=== PATIENT | male | born 1970 | race Caucasian/White ===

== ENCOUNTER 2017-10-27 06:00 | Day surgery (SDC) | payer OTHER ==
--- NOTE | 2017-10-21 13:58 | HP ---
AMENDED REPORT NOW INCLUDES COSIGNER DESIGNATION - ESIGNED BEFORE ADJUSTMENT HISTORY AND PHYSICAL: DATE OF ADMISSION/SURGERY: 10/27/17 DATE OF OFFICE VISIT: 10/21/17 SURGEON: Veronique Villasenor MD * (DICTATED BY VANGIE ALLEN) PROCEDURE: Right knee arthroscopy with partial meniscectomy, possible chondroplasty, possible synovectomy. CHIEF COMPLAINT: Right knee pain. HISTORY OF PRESENT ILLNESS: Mr. Puentes is a 46-year-old gentleman, who complains of right knee pain. He has failed conservative treatment and elected to proceed with a right knee arthroscopy with partial meniscectomy, possible chondroplasty, possible synovectomy. PAST MEDICAL HISTORY: Hypertension, diabetes, high cholesterol, GERD, and history of SVT. PAST SURGICAL HISTORY: Gastric bypass, oral surgery, and heart ablation. CURRENT MEDICATIONS: 1. Celexa 20 mg daily. 2. Multivitamin. 3. Vitamin D. 4. B complex. 5. Iron. ALLERGIES: No known drug allergies. Latex sensitivity. FAMILY HISTORY: DVT, PE, coronary artery disease, and stroke. SOCIAL HISTORY: He is a 46-year-old gentleman. He denies use of tobacco, illicit drugs, or alcohol. REVIEW OF SYSTEMS: A complete 14-point review of systems was reviewed with the patient and it was positive for history of diabetes; however, this has resolved since his gastric bypass. He denies history of DVT, PE, hepatitis, HIV, or anesthesia problems. PHYSICAL EXAMINATION GENERAL: He is well developed, well nourished, in no acute distress. HEENT: Normocephalic, atraumatic. NECK: Supple. No palpable lymph nodes. PULMONARY: The lungs are clear to auscultation bilaterally. CARDIAC: Regular rate and rhythm. Strong S1 and S2. ABDOMEN: Soft, nontender, and nondistended. MUSCULOSKELETAL: Right lower extremity, the skin is intact. There are no open wounds or abrasions. There is uzzm-gj-rcwledtt joint effusion. Tenderness over the medial and lateral joint line, positive Azucena's, 5/5 lower extremity strength, 2+ dorsalis pedis pulses and intact sensation. NEUROLOGIC: He is alert and oriented x3. IMPRESSION AND PLAN: Mr. Puentes is a 46-year-old gentleman with complaints of right knee pain. He has elected to proceed with right knee arthroscopy with partial meniscectomy, possible chondroplasty, possible synovectomy. The surgery is scheduled for 10/27/[address] Villasenor discussed the risks and benefits of the surgery at today's visit and all of his questions were answered. He will follow up with Dr. Villasenor 2 weeks after the surgery. He has a significant family history for DVTs, so we are going to put him on Lovenox 30 mg subcu daily for 2 weeks following the surgery. VANGIE ALLEN [id number]/[facility] #: [id number] DENG
[~2017-10-27 06:00] MED LIST: Buffered Lidocaine 0.9% SYRIN* 5 ML/SYR SYRINGE INTRADERM ONE
[2017-10-27] MEDS ORDERED: ceFAZolin 2 GM PREMIX (*) 2 GM/50 ML BAG IVPB ONE (06:04)
[2017-10-27] MEDS ORDERED: Midazolam* 1 MG/ML 2 ML VIAL (2 MG) ONE (06:43)
[2017-10-27] MEDS ORDERED: fentaNYL* 50 MCG/ML 2 ML VIAL (100 MCG VIAL) ONE ×2 (06:43→08:42)
[2017-10-27] MEDS ORDERED: Bupivacaine 0.5% PF 10 ML VIAL INJ ONE (06:50)
[2017-10-27] MEDS ORDERED: EPINEPHRINE 1 MG/ML 1 ML VIAL ONE (06:50)
[2017-10-27] MEDS ORDERED: methylPREDNISolone ACETATE 80* 80 MG/ML 1 ML VIAL ONE (06:51)
[2017-10-27] MEDS ORDERED: ROPIVACAINE 5 MG/ML 30 ML BTL (0.5%) ONE (07:00)
[2017-10-27] MEDS ORDERED: Lidocaine 2% PF* 10 ML AMP ONE (07:00)
[2017-10-27] MEDS ORDERED: Propofol* 10 MG/ML 20 ML BTL IV PUSH ONE ×2 (07:11→07:58)
[2017-10-27] MEDS ORDERED: EPHEDrine (Pressors)* 50 MG/ML VIAL ONE (07:58)
[2017-10-27] MEDS ORDERED: Dexamethasone IV* 4 MG/ML 1 ML (4 MG) ONE (08:10)
[2017-10-27] MEDS ORDERED: Ondansetron INJ* 2 MG/ML VIAL ONE (08:10)
[2017-10-27] MEDS ORDERED: oxyCODONE/Acetamin 5/325 MG* TAB PO PRN (08:29)
[2017-10-27] MEDS ORDERED: Ondansetron INJ* 2 MG/ML VIAL IV PRN (08:29)
[2017-10-27] MEDS ORDERED: fentaNYL* 50 MCG/ML 2 ML VIAL (100 MCG VIAL) IV PRN (08:29)
[2017-10-27] MEDS ORDERED: Acetaminophen TAB* 325 MG PO PRN (08:29)
[2017-10-27] MEDS ORDERED: Naloxone* 0.4 MG/ML 1 ML VIAL IV PRN (08:29)
[2017-10-27] MEDS ORDERED: DiMENhydriNATE IV* 50 MG/ML VIAL IV PUSH PRN (08:29)
[2017-10-27] MEDS ORDERED: oxyCODONE/Acetamin 5/325 MG* TAB ONE (08:42)
[2017-10-27 09:12] VITALS: BP 109/70
--- NOTE | 2017-10-28 16:25 | OP ---
OPERATIVE REPORT: DATE OF OPERATION: 10/27/17 DATE OF : 72 ATTENDING SURGEON: Veronique Villasenor MD PATIENT MONITOR: VANGIE Sarmiento Mr. iVdales did help throughout the procedure with preparation of the leg, wound retraction, manipulat ion of the knee, and wound closure. ANESTHESIOLOGIST: Dr. Hernandez. ANESTHESIA: General. PRE-OP DIAGNOSIS: Right knee medial meniscal tear, osteoarthritis. POST-OP DIAGNOSIS: Right knee medial meniscal tear, osteoarthritis. OPERATIVE PROCEDURE: Right knee arthroscopy with partial medial meniscectomy and patellofemoral markus droplasty. BRIEF HISTORY/INDICATIONS: Mr. Puentes is a 46-year-old gentleman with recent acute increase in his ri ght knee pain. He had mechanical symptoms and MRI had confirmed an medial meniscal tear. Due to alireza lure of conservative treatment and continued pain, the patient elected to undergo right knee arthrosc opy with partial medial meniscectomy, possible chondroplasty, possible synovectomy. Informed consent was obtained from the patient. He understood the risk of surgery included, but were not limited to, bleeding, infection, damage to nearby structures, continued pain, need for further surgery, retear o f the meniscus, progression of arthritis, stroke, heart attack, blood clot, and . He wished to proceed. INTRAOPERATIVE FINDINGS: Intraoperatively, the patient was noted to have a radial tear in the anteri or horn of the medial meniscus and posterior horn of the medial meniscus. These were in the white re d zone. He was noted to have grade 3 and 4 Outerbridge cartilage changes in the patellofemoral jasbir rtment with frayed and cartilage fraying and flapping. He was noted to have much milder arthritic ch anges in the medial and lateral compartments. ESTIMATED BLOOD LOSS: Less than 25 cc. SPECIMEN: None. COMPLICATIONS: None. DESCRIPTION OF PROCEDURE: Mr. Puentes was identified in the preanesthesia unit. His right lower extre mity was marked as correct operative side. Informed consent was signed and placed in the chart. The patient was taken to the operating room and placed under general anesthesia. Right lower extremity was prepped and draped in the usual sterile fashion. Preop time-out was made to correctly the patien t's side and site. Appropriate perioperative antibiotics were given within 1 hour of incision. A standard 0.5 cm anterolateral portal incision was made with 15-blade and carried down through the c apsule. Trocar was introduced. As soon as the water and light sources were turned on, there was imm ediate visualization of the suprapatellar pouch. A tour of the knee joint was performed. Suprapatel lar pouch had no obvious abnormalities. Patellofemoral compartment was visualized and had exposed sifuentes bchondral bone along the majority of the femoral trochlea and medial patellar facet. This was grade 3 and 4 Outerbridge cartilage changes with frayed cartilage edges that has been cartilage flapping. Medial gutter showed no loose bodies or plica. Medial compartment showed no tear with anterior displ acement to the joint along the medial meniscus. There was also a radial tear of the posteromedial me niscus. Medial cartilage had minimal degenerative changes. ACL and PCL appeared to be intact. The knee was placed in the [id number]-ug-uljj position. There was minimal cartilage degeneration and no obvi ous meniscal tear. Lateral gutter showed no loose body or plica. Under direct visualization, a medial portal incision was made with 15-blade. Probe was introduced. A second tour of the knee joint was performed. There were no additional findings. Shaver and straig ht biter were used to perform partial medial meniscectomy. The tears were carefully excised until sm ooth border of the meniscus was obtained. Further probing of the meniscus showed no additional tears or displaced fragments. The radiofrequency ablation wand was used to remove some inflammatory tissu e from the anterior joint line. Radiofrequency ablation wand was then placed in the patellofemoral c ompartment and the cartilage flap was carefully smoothed in a conservative fashion. Once the cartila ge flaps were sufficiently smoothed, the shaver was introduced in the suprapatellar pouch. The knee was copiously irrigated with normal saline. All instruments were then removed. Incisions were closed using interrupted 3-0 nylon suture. Intraarticular injection of 80 mg of Depo-Medrol and 6 cc of 0. 25% Marcaine was placed. Incisions were covered with sterile Xeroform, 4x4s, and Webril. Emile wrap a nd cold pack were placed to cover this. The patient's anesthesia was reversed without difficulty. He was taken to the PACU in stable condition. Intended weightbearing will be weightbearing as tolerate d. Intended DVT prophylaxis will be Lovenox due to family history of significant blood clot. [id number]/[facility] #: [id number]
== END 2017-10-27 09:38 | disposition home or self-care (01) ==
LOC: OR 06:00
PROVIDERS: ATTEND Orthopaedic Surgery Adult Reconstructive Orthopaedic Surgery
DX: S83.241A Other tear of medial meniscus, current injury, right knee, initial encounter (principal); X58.XXXA Exposure to other specified factors, initial encounter; Y93.9 Activity, unspecified; Y92.9 Unspecified place or not applicable; M17.11 Unilateral primary osteoarthritis, right knee; G89.18 Other acute postprocedural pain; E11.9 Type 2 diabetes mellitus without complications; I10 Essential (primary) hypertension; I47.1 Supraventricular tachycardia; E78.00 Pure hypercholesterolemia, unspecified; K21.9 Gastro-esophageal reflux disease without esophagitis
CPT/HCPCS: A9270-GY; J0690; J1040; J1100; J2001; J2250; J2405; J2704; J2795; J3010

== ENCOUNTER 2018-04-18 06:33 | Inpatient (IN) | payer OTHER ==
--- NOTE | 2018-04-06 11:30 | HP ---
HISTORY AND PHYSICAL: DATE OF ADMISSION/SURGERY: 04/18/18 DATE OF OFFICE VISIT: 04/05/18 SURGEON: Veronique Villasenor MD.* (DICTATED BY VANGIE ALLEN) PROCEDURE: Right total hip arthroplasty. CHIEF COMPLAINT: Right hip pain. HISTORY OF PRESENT ILLNESS: Mr. Puentes is a 47-year-old gentleman with continued complaints of right hip pain. He has failed conservative treatment and elected to proceed with a right total hip arthroplasty. PAST MEDICAL HISTORY: History of SVT and resolved diabetes. PAST SURGICAL HISTORY: Bariatric surgery and cardiac ablation, right knee arthroscopy, and wisdom teeth extraction. CURRENT MEDICATIONS: 1. Celexa 20 mg daily. 2. Multivitamin and vitamin D3. 3. B complex. 4. Iron. 5. Vitamin D and calcium with magnesium. ALLERGIES: No known drug allergies. FAMILY HISTORY: Coronary artery disease, diabetes, stroke, seizures, DVT/PE. SOCIAL HISTORY: He is 47-year-old gentleman who lives with his partner. He does not smoke. He does use marijuana. Denies use of alcohol. REVIEW OF SYSTEMS: A complete 14-point review of systems was reviewed with the patient. It was all negative or noncontributory. He denies history of DVT, PE , hepatitis, HIV, or anesthesia problems. PHYSICAL EXAMINATION GENERAL: He is well developed, well nourished, in no acute distress. VITAL SIGNS: He stands 71 inches tall, weighs 260 pounds. Blood pressure 166/ 64. His heart rate was 80. HEENT: Normocephalic, atraumatic. NECK: Supple. No palpable lymph nodes. PULMONARY: The lungs are clear to auscultation bilaterally. + CARDIO: Regular rate and rhythm. Strong S1 and S2. ABDOMEN: Soft, nontender, nondistended. NEUROLOGIC: He is alert and oriented x3. MUSCULOSKELETAL: Right lower extremity, the skin is intact. There are no open wounds or abrasions. He has decreased internal and external rotation of the right hip. He walks with slightly antalgic type gait favoring the right hip. He has 2+ dorsalis pedis pulse, intact sensation in his lower extremity. Muscle group strengths are intact at 5/5. ASSESSMENT AND PLAN: Mr. Puentes is a 47-year-old gentleman with end-stage osteoarthritis of the right hip. He has failed conservative treatment and elected to proceed with a right total hip arthroplasty. This surgery is scheduled for 04/18/[address] Villasenor discussed the risks and benefits of the surgery at today's visit and all of his questions were answered. He will follow up with Dr. Villasenor 2 weeks after the surgery. VANGIE ALLEN [id number]/[facility] #: [id number] DENG
[~2018-04-18 06:33] MED LIST changes: -Buffered Lidocaine 0.9% SYRIN* 5 ML/SYR SYRINGE INTRADERM ONE; +Buffered Lidocaine 1% SYRIN* 1 ML/SYRINGE INTRADERM ONE; +Lactated Ringers 1000 ML Bag* 1,000 ML IV SCH
--- OUTSIDE RECORDS SUMMARY | 2018-04-18 06:37 | XMS REPORT | Continuity of Care Document ---
:1970 External Reference #:[id number] Author Name JudithLuis graham Care Team Providers Name Role Phone Yo Morgan MD Primary Care Physician Unavailable Payers Type Date Identification Numbers Payment Provider Subscriber Effective: Policy Number: [id number] [employer] Asael Villa 2017 PayID: [id number] [address] [place] [address] Effective: 2013 Policy Number: [id number] [employer] Asael Villa Expires: 2017 PayID: [id number] [address] [address] [place] [address] Effective: 2010 Policy Number: [id number] [facility] Ppo Asael Villa Expires: 2012 PayID: [id number] [address] [address] [place] [address] Advance Directives Description No Information Available Problems Date Description Provider Status Onset: 02/17/2014 Supraventricular arrhythmia Lazarus Mitchell M.D. Active Note: now post ablation Onset: 02/17/2014 Hyperlipidemia Lazarus Mitchell M.D. Active Onset: 03/15/2014 Type 2 diabetes mellitus Lazarus Mitchell M.D. Active Onset: 03/15/2014 Paroxysmal supraventricular Lazarus Mitchell M.D. Active tachycardia Onset: 03/15/2014 Alcoholic fatty liver Lazarus Mitchell M.D. Active Onset: 03/15/2014 Dermal mycosis Lazarus Mitchell M.D. Active Onset: 03/15/2014 Morbid obesity Lazarus Mitchell M.D. Active Onset: 08/15/2015 Localized, primary osteoarthritis Veronique Villasenor M.D. Active Onset: 10/06/2015 History of bariatric surgical Yo Morgan, Active procedure Mary,FAC Note: lap Saundra-en-Y 02/2015 Onset: 11/13/2015 Vitamin D deficiency Yo Morgan, Active Mary,FACP Onset: 09/23/2017 Localized, primary Veronique Villasenor M.D. Active osteoarthritis of the pelvic region and thigh Onset: 03/15/2014 Liver function tests abnormal Lazarus Mitchell M.D. Inactive Inactive: 11/13/2015 Family History Date Family Member(s) Problem(s) Comments : (age Father due to Pe After leg surgery 60 Years) Father Coronary Artery Disease (CAD) Father Hypertension Father Hypercholesterolemia Mother 68 Mother Heart Disease CABG plus stents Mother Diabetes Mother COPD Mother Tobacco user Mother Stroke Mother Seizure Disorder Siblings 2 1 - brother with HTN 1 - sister no known CAD First Brother Hypertension Maternal Uncles due to Cancer () - mets from legs to liver/lung Social History Type Date Description Comments Sex Unknown Marital Status Lives With Occupation 05/17/2016 Currently Working [employer] Tobacco Use Reviewed: 05/17/16 Never Smoked Cigarettes Smoking Status Reviewed: 04/05/18 Never Smoked Cigarettes ETOH Use 05/17/2016 Denies alcohol use Tobacco Use Start: Unknown Patient has never smoked Recreational Drug Use Former Drug User Marijuana. Quit 20 years ago Exercise Type/Frequency Exercises sporadically Currently Active Patient is currently sexually active Allergies, Adverse Reactions, Alerts Date Description Reaction Status Severity Comments 02/14/2014 NKDA Active 03/27/2018 Latex Active Mild Medications Medication Date Status Form Strength Qnty SIG Indications Ordering Provider [facility] 03/27/ Active Solution 8% 6.600 apply one B35.1 2017 ml coating to froylan Das MD daily, remove once a week with alcohol. vipul for at least 3months Clobetasol 03/03/ Active Cream 0.05% 30gm apply to 2015 rash on musa Das MD every day as needed Celexa 10/02/ Active Tablets 20mg 30tab 1 by mouth F32.9 2014 s every day MD Thiago Onetouch 06/27/ Active Misc 100un please check Lazarus Marie 2015 its blood sugar Mitchell, 3-4 times M.D. daily Multivitamins / Active Gummies 1 by mouth Unknown 0000 qd Vitamin D3 / Active Liquid 5000Iu 5 drops Unknown 0000 daily B Complex / Active Capsules 1 by mouth Unknown 0000 every day Fe C Tab / Active Tablets ? 1 po qd Unknown 0000 Vitamin D / Active Chewtabs 400Unit 4 by mouth Unknown (Cholecalcifero 0000 every day (2 l) Am, 2PM) Percocet 10/26/ Hx Tablets 5-325mg 45tab 1-2 by mouth Veronique 2017 - s every 6 Hamilton, 12/08/ hours as M.D. 2018 needed pain Aspirin 10/26/ Hx Tablets 325mg 28tab take 1 by Veronique 2017 - s mouth twice Hamilton, 10/27/ a day for M.D. 2018 two weeks Lovenox 10/21/ Hx Solution 30mg/0.3M 3ml inject once Veronique 2017 - L daily for 2 Hamilton, 12/08/ weeks; start M.D. 2018 10/28/17. Tramadol HCL 10/03/ Hx Tablets 50mg 14tab 1 tab twice Veronique 2017 - s a day as [place], 12/08/ needed for M.D. 2018 pain Clotrimazole/Be 01/20/ Hx Cream 1-0.05% 45gm apply twice B36.9 Maria Dolores tamethasone 2017 - a day over Joe, Dipropionate 03/27/ foot as HRBP 2018 needed Ofloxacin 01/20/ Hx Solution 0.3% 5ml 4 drops in H60.311 Maria Dolores (Otic) 2016 - right ear Joe, 09/26/ twice a day HRBP 2018 Lamisil AT 05/17/ Hx Cream 1% 42gm as needed Yo Morgan, 09/26/ M.DTiffanie,FACP 2018 Acetaminophen 02/19/ Hx Tablets ER 650mg 120ta 1 tab by Other ER 2016 bs mouth q4 hrs Ordering prn pain Provider Amoxicillin 02/19/ Hx Chewtabs 250mg 46uni chew two Other 2016 - ts tablets two Ordering 03/03/ times a day Provider 2016 for 12 days Atenolol 09/17/ Hx Tablets 25mg 30tab 1 by mouth Yo 2016 s every day Amanda Morgan, prn M.D.,FACP Vitamin D 05/15/ Hx Capsules [id number] 8caps 1 cap by Lazarus (Ergocalciferol 2016 - mouth per Mitchell, ) week x 8 M.D. 2016 weeks (not taking) Keflex 11/29/ Hx Capsules 500mg 21cap 1 by mouth 682.9 Lazarus 2015 - s three times Mitchell, day M.D. 2014 Onetouch Ultra Hx Test 100un check blood Z01.818 Lazarus 2 2015 - Strips its sugar 1-2 Mitchell, 08/13/ times daily M.D. 2015 Glipizide ER 03/15/ Hx Tablets ER 5mg 90tab 1 tablet by Z01.818 Lazarus 2014 - 24HR s mouth every Mitchell, day M.D. 2015 No Active Unknown Medications 2013 - 2013 Clotrimazole/Be Hx Cream 1-0.05% 45gm apply twice B36.9 Figueroa Casey tamethasone 2014 a day over Amanda Morgan, Dipropionate hands and MKaren,FACP foot as needed Mobic 04/26/ Hx Tablets 15mg 90tab 1 tab by Nathaniel 2011 - s mouth every , day M.D. 2013 Atenolol / Hx Tablets 50mg 90tab 1 by mouth Lazarus 0000 - s every day Mitchell, 04/09/ M.D. 2016 Simvastatin / Hx Tablets 20mg 90tab 1 by mouth Lzaarus 0000 - s every day Mitchell, 04/09/ M.D. 2016 [facility] B-12 / Hx Tablets 5000mcg 1 sublingual Unknown 0000 - Sub daily 2017 SMZ-TMP DS / Hx Tablets 800-160mg 1 tab by Unknown 0000 - mouth twice 11/29/ a day x 10 2014 days Bactrim DS / Hx Tablets 800-160mg 1 tablet by Unknown 0000 - mouth twice 01/02/ a day 2014 Omeprazole OTC / Hx Capsules 20mg 1 by mouth Unknown 0000 - DR every day 2015 Fiber (Guar / Hx Chewtabs 1 po bid Unknown Gum) 0000 - 2015 Metformin HCL / Hx Tablets 500mg 60tab 1 tablet by Lazarus 0000 - s mouth twice Mitchell, 04/09/ a day Mary 2016 Calcium / Hx Liquid 2 Unknown 0000 - tablespoons 2016 Ferrous Sulfate / Hx Liquid daily Unknown 0000 - 2016 Omeprazole / Hx 1 tablet Unknown 0000 - daily 2015 Fiber Choice / Hx 1 tablet Unknown Fruity Bites 0000 - twice a day 2017 Airborne / Hx Chewtabs daily Unknown Gummies - 2016 Probiotic / Hx Capsules daily Unknown Acidophilus - 2016 Aspirin Ec / Hx Tablets DR 325mg 1 by mouth Unknown 0000 every day Medications Administered in Office Medication Date Status Form Strength Qnty SIG Indications Ordering Provider Depomedrol Administered Injection Veronique 40MG 018 Mary Villasenor Depomedrol Administered Injection Veronique 40MG 018 Mary Villasenor Depomedrol Administered Injection Veronique 40MG 016 Mary Villasenor Depomedrol Administered Injection Nathaniel 80MG 012 Mary Asher Immunizations CPT Code Status Date Vaccine Lot # [id number] Given 03/03/2016 Influenza Virus Vaccine, Quadrivalent, Split [id number] Virus, [place] Use [id number] Given 11/13/2015 Pneumonia Vaccine [id number] Given 02/14/2014 Flu Vaccine Split Virus Preservative Free For [id number] Indiv [id number] Older Vital Signs Date Vital Result Comment 04/05/2018 8:24am Height 71 inches 5'11" Weight 260.00 lb BP Systolic 106 mmHg BP Diastolic 64 mmHg Respiratory Rate 16 /min Pain Level 2 BMI (Body Mass Index) 36.3 kg/m2 03/27/2018 12:50pm Height 71 inches 5'11" Weight 260.00 lb Heart Rate 63 /min BP Systolic 98 mmHg BP Diastolic 76 mmHg Body Temperature 97.9 F O2 % BldC Oximetry 96 % BMI (Body Mass Index) 36.3 kg/m2 12/12/2017 11:43am Height 71 inches 5'11" Heart Rate 80 /min BP Systolic Sitting 110 mmHg BP Diastolic Sitting 78 mmHg Respiratory Rate 16 /min Body Temperature 96.9 F Pain Level 3 11/07/2017 1:39pm Height 71 inches 5'11" Weight 260.00 lb BP Systolic 116 mmHg BP Diastolic 80 mmHg Body Temperature 97.7 F Pain Level 1 BMI (Body Mass Index) 36.3 kg/m2 10/21/2017 11:22am Height 71 inches 5'11" Weight 260.75 lb Heart Rate 71 /min BP Systolic 122 mmHg BP Diastolic 74 mmHg Respiratory Rate 18 /min Body Temperature 97.3 F Pain Level 3 BMI (Body Mass Index) 36.4 kg/m2 10/10/2017 1:12pm Height 71 inches 5'11" Weight 260.00 lb Heart Rate 72 /min BP Systolic Sitting 120 mmHg BP Diastolic Sitting 68 mmHg Body Temperature 97.8 F O2 % BldC Oximetry 97 % BMI (Body Mass Index) 36.3 kg/m2 10/03/2017 3:59pm Height 71 inches 5'11" Heart Rate 99 /min BP Systolic 142 mmHg BP Diastolic 82 mmHg Respiratory Rate 16 /min Body Temperature 97.1 F Pain Level 3 09/27/2017 10:50am Height 71 inches 5'11" Weight 264.00 lb no shoes Heart Rate 72 /min BP Systolic Sitting 132 mmHg lue reg cuff BP Diastolic Sitting 76 mmHg lue reg cuff BMI (Body Mass Index) 36.8 kg/m2 Ejection Fraction 55-60% echo 07/23/2016 09/23/2017 1:48pm Height 71 inches 5'11" Weight 262.00 lb Heart Rate 88 /min BP Systolic 126 mmHg BP Diastolic 86 mmHg BMI (Body Mass Index) 36.5 kg/m2 01/20/2017 2:48pm Weight 254.50 lb Heart Rate 65 /min BP Systolic Sitting 110 mmHg BP Diastolic Sitting 64 mmHg Body Temperature 98.4 F O2 % BldC Oximetry 98 % 09/03/2016 10:13am Height 71.25 inches 5'11.25" Weight 248.00 lb Heart Rate 88 /min BP Systolic 118 mmHg BP Diastolic 68 mmHg Respiratory Rate 16 /min Body Temperature 96.8 F BMI (Body Mass Index) 34.3 kg/m2 06/17/2016 3:14pm Height 71.25 inches 5'11.25" Weight 247.00 lb with shoes Heart Rate 102 /min BP Systolic Sitting 120 mmHg LA reg cuff BP Diastolic Sitting 76 mmHg LA reg cuff BMI (Body Mass Index) 34.2 kg/m2 Ejection Fraction 55% stress echo 11/25/15 05/17/2016 10:52am Height 71.25 inches 5'11.25" Weight 246.12 lb Heart Rate 66 /min BP Systolic Sitting 118 mmHg BP Diastolic Sitting 82 mmHg O2 % BldC Oximetry 97 % BMI (Body Mass Index) 34.1 kg/m2 03/03/2016 1:56pm Height 71 inches 5'11" Weight 242.00 lb Heart Rate 74 /min BP Systolic Sitting 104 mmHg BP Diastolic Sitting 60 mmHg Respiratory Rate 18 /min Body Temperature 97.2 F BMI (Body Mass Index) 33.7 kg/m2 03/03/2016 8:29am Weight 242.50 lb Heart Rate 67 /min BP Systolic Sitting 110 mmHg BP Diastolic Sitting 62 mmHg Body Temperature 96.3 F O2 % BldC Oximetry 98 % 02/26/2016 9:56am Height 71 inches 5'11" Weight 242.00 lb w/o shoes Heart Rate 62 /min BP Systolic Sitting 106 mmHg Lue, reg cuff BP Diastolic Sitting 70 mmHg Lue, reg cuff BP Systolic Standing 106 mmHg Lue BP Diastolic Standing 76 mmHg Lue Respiratory Rate 16 /min BMI (Body Mass Index) 33.7 kg/m2 Ejection Fraction 50-55% as of 10/21/15 echo 01/14/2016 2:00pm Height 71 inches 5'11" Weight 246.12 lb Heart Rate 55 /min BP Systolic Sitting 102 mmHg BP Diastolic Sitting 72 mmHg Body Temperature 97.4 F O2 % BldC Oximetry 98 % BMI (Body Mass Index) 34.3 kg/m2 12/16/2015 9:18am Height 71 inches 5'11" Weight 243.00 lb BMI (Body Mass Index) 33.9 kg/m2 12/03/2015 2:53pm Height 71 inches 5'11" Weight 241.00 lb w/o shoes Heart Rate 52 /min BP Systolic Sitting 112 mmHg LA reg cuff BP Diastolic Sitting 80 mmHg LA reg cuff BMI (Body Mass Index) 33.6 kg/m2 Ejection Fraction 50-55% Echo 10/21/15 11/13/2015 8:36am Height 71 inches 5'11" Weight 240.00 lb Heart Rate 55 /min BP Systolic Sitting 86 mmHg BP Diastolic Sitting 60 mmHg Body Temperature 96.3 F O2 % BldC Oximetry 98 % BMI (Body Mass Index) 33.5 kg/m2 09/18/2015 2:21pm Height 71 inches 5'11" Weight 250.25 lb w/o shoes Heart Rate 82 /min BP Systolic Sitting 110 mmHg LA lg cuff BP Diastolic Sitting 78 mmHg LA lg cuff BMI (Body Mass Index) 34.9 kg/m2 09/12/2015 4:23pm Height 71 inches 5'11" Weight 258.00 lb Pain Level 2 BMI (Body Mass Index) 36.0 kg/m2 08/15/2015 8:51am Height 71 inches 5'11" Weight 258.00 lb Heart Rate 82 /min BP Systolic 110 mmHg BP Diastolic 70 mmHg Pain Level 7 BMI (Body Mass Index) 36.0 kg/m2 05/15/2015 10:50am Height 71 inches 5'11" Weight 286.38 lb Heart Rate 70 /min BP Systolic Sitting 104 mmHg BP Diastolic Sitting 62 mmHg Body Temperature 96.1 F O2 % BldC Oximetry 98 % BMI (Body Mass Index) 39.9 kg/m2 04/09/2015 11:03am Height 71 inches 5'11" Weight 292.50 lb Heart Rate 98 /min BP Systolic Sitting 104 mmHg BP Diastolic Sitting 78 mmHg Body Temperature 97.8 F O2 % BldC Oximetry 98 % BMI (Body Mass Index) 40.8 kg/m2 01/07/2015 3:28pm Height 71 inches 5'11" Weight 339.50 lb Heart Rate 70 /min BP Systolic Sitting 110 mmHg BP Diastolic Sitting 72 mmHg Body Temperature 98.1 F O2 % BldC Oximetry 97 % BMI (Body Mass Index) 47.3 kg/m2 01/02/2015 2:13pm Height 71 inches 5'11" Weight 341.38 lb Heart Rate 72 /min BP Systolic Sitting 102 mmHg BP Diastolic Sitting 60 mmHg Body Temperature 98.0 F O2 % BldC Oximetry 98 % BMI (Body Mass Index) 47.6 kg/m2 11/29/2014 1:52pm Height 72 inches 6'0" Weight 338.56 lb Heart Rate 96 /min BP Systolic Sitting 120 mmHg BP Diastolic Sitting 62 mmHg Body Temperature 98.6 F O2 % BldC Oximetry 98 % BMI (Body Mass Index) 45.9 kg/m2 11/13/2014 12:52pm Height 72 inches 6'0" Weight 339.00 lb Heart Rate 67 /min BP Systolic Sitting 121 mmHg BP Diastolic Sitting 70 mmHg Body Temperature 97.5 F O2 % BldC Oximetry 96 % BMI (Body Mass Index) 46.0 kg/m2 10/02/2014 12:52pm Height 72 inches 6'0" Weight 356.00 lb Heart Rate 76 /min BP Systolic Sitting 112 mmHg BP Diastolic Sitting 68 mmHg Body Temperature 97.6 F O2 % BldC Oximetry 98 % BMI (Body Mass Index) 48.3 kg/m2 06/14/2014 10:17am Height 72 inches 6'0" Weight 357.50 lb Heart Rate 89 /min BP Systolic Sitting 112 mmHg BP Diastolic Sitting 78 mmHg O2 % BldC Oximetry 98 % BMI (Body Mass Index) 48.5 kg/m2 03/15/2014 10:49am Height 72 inches 6'0" Weight 361.00 lb Heart Rate 68 /min BP Systolic Sitting 122 mmHg BP Diastolic Sitting 70 mmHg Body Temperature 98.0 F BMI (Body Mass Index) 49.0 kg/m2 02/14/2014 1:53pm Height 72 inches 6'0" Weight 362.00 lb Heart Rate 80 /min BP Systolic Sitting 122 mmHg BP Diastolic Sitting 72 mmHg Body Temperature 98.8 F BMI (Body Mass Index) 49.1 kg/m2 Results Test Date Facility Test Result H/L Range Note Order 03/27/2018 [facility] EKG viewed by Dr. Das Laboratory test 03/27/2018 [facility] Partial 29.1 seconds N 26.0-36.[address] [place] [address] PTT [phone] Inr/Protime 03/27/2018 [facility] Inr 0.98 N 0.77-1.[address] [place] [address] [phone] CBC Auto Diff 03/27/2018 [facility] White Blood 6.6 10^3/uL N 3.5-10.[address] [place] [address] [phone] Red Blood Count 5.11 10^6/uL N 4.00-5.40 Hemoglobin 15.0 g/dL N 14.0-18.0 Hematocrit 44 % N 42-52 Mean Corpuscular Volume 86 fL N 80-94 Mean Corpuscular Hemoglobin 29 pg N 27-31 Mean Corpuscular HGB Conc 34 g/dL N 31-36 Red Cell Distribution Width 14 % N 10.5-15 Platelet Count 251 10^3/uL N 150-450 Mean Platelet Volume 7.8 fL N 7.4-10.4 Abs Neutrophils 3.3 10^3/uL N 1.5-7.7 Abs Lymphocytes 2.6 10^3/uL N 1.0-4.8 Abs Monocytes 0.4 10^3/uL N 0-0.8 Abs Eosinophils 0.2 10^3/uL N 0-0.6 Abs Basophils 0.1 10^3/uL N 0-0.2 Abs Nucleated RBC 0 10^3/uL Granulocyte % 50.7 % Lymphocyte % 39.6 % Monocyte % 6.1 % Eosinophil % 2.6 % Basophil % 1.0 % Nucleated Red Blood Cells % 0.2 Basic Metabolic Panel 03/27/2018 [facility] Sodium 141 mmol/L N 135-[address] [place] [address] [phone] Potassium 4.2 mmol/L N 3.5-5.0 Chloride 109 mmol/L N 101-111 Co2 Carbon Dioxide 24 mmol/L N 22-32 Anion Gap 8 mmol/L N 2-11 Glucose 91 mg/dL N 70-100 Blood Urea Nitrogen 14 mg/dL N 6-24 Creatinine 0.78 mg/dL N 0.67-1.17 BUN/Creatinine Ratio 17.9 N 8-20 Calcium 9.5 mg/dL N 8.6-10.3 Egfr Non- 107.2 >60 Egfr 129.7 >60 1 CBC Auto Diff 11/09/2017 [facility] White Blood 7.3 10^3/uL N 3.5-10.[address] [place] [address] [phone] Red Blood Count 5.18 10^6/uL N 4.00-5.40 Hemoglobin 14.8 g/dL N 14.0-18.0 Hematocrit 45 % N 42-52 Mean Corpuscular Volume 86 fL N 80-94 Mean Corpuscular Hemoglobin 29 pg N 27-31 Mean Corpuscular HGB Conc 33 g/dL N 31-36 Red Cell Distribution Width 15 % N 10.5-15 Platelet Count 270 10^3/uL N 150-450 Mean Platelet Volume 7.4 um3 N 7.4-10.4 Abs Neutrophils 4.0 10^3/uL N 1.5-7.7 Abs Lymphocytes 2.8 10^3/uL N 1.0-4.8 Abs Monocytes 0.4 10^3/uL N 0-0.8 Abs Eosinophils 0.1 10^3/uL N 0-0.6 Abs Basophils 0 10^3/uL N 0-0.2 Abs Nucleated RBC 0 10^3/uL Granulocyte % 54.3 % N 38-83 Lymphocyte % 38.2 % N 25-47 Monocyte % 5.4 % N 0-7 Eosinophil % 1.5 % N 0-6 Basophil % 0.6 % N 0-2 Nucleated Red Blood Cells % 0.1 Comp Metabolic Panel 11/09/2017 [facility] Sodium 140 mmol/L N 135-145 [address] [place] [address] [phone] Potassium 4.4 mmol/L N 3.5-5.0 Chloride 106 mmol/L N 101-111 Co2 Carbon Dioxide 28 mmol/L N 22-32 Anion Gap 6 mmol/L N 2-11 Glucose 92 mg/dL N 70-100 Blood Urea Nitrogen 13 mg/dL N 6-24 Creatinine 0.84 mg/dL N 0.67-1.17 BUN/Creatinine Ratio 15.5 N 8-20 Calcium 9.4 mg/dL N 8.6-10.3 Total Protein 6.8 g/dL N 6.4-8.9 Albumin 4.3 g/dL N 3.2-5.2 Globulin 2.5 g/dL N 2-4 Albumin/Globulin Ratio 1.7 N 1-3 Total Bilirubin 0.40 mg/dL N 0.2-1.0 Alkaline Phosphatase 95 U/L N 34-104 Alt 37 U/L N 7-52 Ast 25 U/L N 13-39 Egfr Non- 98.8 >60 Egfr 119.6 >60 2 Iron & Iron Binding 11/09/2017 [facility] Iron 83 g/dL N 50- [address] [place] [address] [phone] Unsaturated Iron Binding 306 g/dL Total Iron Binding Capacity 389 g/dL N 250-450 Transferrin 278 mg/dL N 203-362 % Iron Saturation 21 % N 15-55 Laboratory test 11/09/2017 [facility] Ferritin 18.4 ng/mL Low 24-[address] [place] [address] [phone] Folic Acid (Folate) > 20.00 ng/mL >3.99 Vitamin B12 389 pg/mL N 180-914 3 Vitamin D Total 25(Oh) 67.2 ng/mL High 20-50 Hemoglobin A1c (Glyco HGB) 5.9 % High 4.0-5.6 4 Vitamin B1 (Whole Blood) 166 nmol/L 70-180 5 Vitamin E Level 11.6 mg/L 5.5 - 17.0 6 Laboratory test 10/27/2017 [facility] Point of Care 84 mg/dL N 70-100 [address] [place] [address] [phone] CBC Auto Diff 10/10/2017 [facility] White Blood 9.3 10^3/uL N 3.5-10.[address] [place] [address] [phone] Red Blood Count 5.43 10^6/uL High 4.00-5.40 Hemoglobin 15.7 g/dL N 14.0-18.0 Hematocrit 46 % N 42-52 Mean Corpuscular Volume 85 fL N 80-94 Mean Corpuscular Hemoglobin 29 pg N 27-31 Mean Corpuscular HGB Conc 34 g/dL N 31-36 Red Cell Distribution Width 15 % N 10.5-15 Platelet Count 275 10^3/uL N 150-450 Mean Platelet Volume 7.5 um3 N 7.4-10.4 Abs Neutrophils 5.2 10^3/uL N 1.5-7.7 Abs Lymphocytes 3.3 10^3/uL N 1.0-4.8 Abs Monocytes 0.6 10^3/uL N 0-0.8 Abs Eosinophils 0.1 10^3/uL N 0-0.6 Abs Basophils 0.1 10^3/uL N 0-0.2 Abs Nucleated RBC 0 10^3/uL Granulocyte % 55.9 % N 38-83 Lymphocyte % 35.1 % N 25-47 Monocyte % 7.0 % N 0-7 Eosinophil % 1.4 % N 0-6 Basophil % 0.6 % N 0-2 Nucleated Red Blood Cells % 0.1 Comp Metabolic Panel 10/10/2017 [facility] Sodium 139 mmol/L N 135-[address] [place] [address] [phone] Potassium 4.4 mmol/L N 3.5-5.0 Chloride 103 mmol/L N 101-111 Co2 Carbon Dioxide 29 mmol/L N 22-32 Anion Gap 7 mmol/L N 2-11 Glucose 79 mg/dL N 70-100 Blood Urea Nitrogen 13 mg/dL N 6-24 Creatinine 0.82 mg/dL N 0.67-1.17 BUN/Creatinine Ratio 15.9 N 8-20 Calcium 9.7 mg/dL N 8.6-10.3 Total Protein 6.9 g/dL N 6.4-8.9 Albumin 4.2 g/dL N 3.2-5.2 Globulin 2.7 g/dL N 2-4 Albumin/Globulin Ratio 1.6 N 1-3 Total Bilirubin 0.50 mg/dL N 0.2-1.0 Alkaline Phosphatase 91 U/L N 34-104 Alt 27 U/L N 7-52 Ast 20 U/L N 13-39 Egfr Non- 101.6 >60 Egfr 122.9 >60 8 Urinalysis Profile 10/10/2017 [facility] Urine Color Yellow [address] [place] [address] [phone] Urine Appearance Cloudy Urine Specific [place] 1.020 N 1.010-1.030 Urine pH 5.0 N 5-9 Urine Urobilinogen Negative Negative Urine Ketones Negative Negative Urine Protein Negative Negative Urine Leukocytes Negative Negative Urine Blood Negative Negative * * Abnormal Negative 9 Urine Nitrite Negative Negative Urine Bilirubin Negative Negative Urine Glucose Negative Negative Laboratory test 10/10/2017 [facility] Hemoglobin A1c 6.0 5-7 finding Urine Microalbumin 10/10/2017 [facility] Ur Microalbumin < 15.0 mg/L Random [address] (mg/L) [place] [address] [phone] Urine Creatinine 192.95 mg/dL Urine Microalbumin/Creatinine TNP ug/mg <31 10 Laboratory test 01/20/2017 [facility] Culture SEE RESULT 11 , [address] [place] [address] [phone] Laboratory test 01/20/2017 [facility] Rapid Group A neg finding Strep Laboratory test 09/01/2016 [facility] Ferritin < 10.0 Low 24- [address] ng/mL 6 [place] [address] [phone] Folic Acid (Folate) > 20.00 ng/mL N >3.99 Vitamin D Total 25(Oh) 23.9 ng/mL Low 30-50 Vitamin B1 (Whole Blood) 117 nmol/L N 70-180 13 Vitamin B12 Binding Capacity 1190 pg/mL N 800-2600 14 Vitamin E Level 10.0 mg/L N 5.5 - 17.0 15 CBC No Diff 09/01/2016 [facility] White Blood 5.9 10^3/uL N 3.5-10.[address] [place] [address] [phone] Red Blood Count 5.03 10^6/uL N 4.0-5.4 Hemoglobin 14.2 g/dL N 14.0-18.0 Hematocrit 43 % N 42-52 Mean Corpuscular Volume 85 fL N 80-94 Mean Corpuscular Hemoglobin 28 pg N 27-31 Mean Corpuscular HGB Conc 33 g/dL N 31-36 Red Cell Distribution Width 14 % N 10.5-15 Platelet Count 221 10^3/uL N 150-450 Mean Platelet Volume 8 um3 N 7.4-10.4 Iron & Iron Binding 09/01/2016 [facility] Iron 117 g/dL N 50 -[address] [place] [address] [phone] Unsaturated Iron Binding 297 g/dL N Total Iron Binding Capacity 414 g/dL N 250-450 % Iron Saturation 28 % N 15-55 Comp Metabolic Panel 09/01/2016 [facility] Sodium 136 mmol/L N 133-[address] [place] [address] [phone] Potassium 4.1 mmol/L N 3.5-5.0 Chloride 106 mmol/L N 101-111 Co2 Carbon Dioxide 25 mmol/L N 22-32 Anion Gap 5 mmol/L N 2-11 Glucose 93 mg/dL N 70-100 Blood Urea Nitrogen 15 mg/dL N 6-24 Creatinine 0.72 mg/dL N 0.67-1.17 BUN/Creatinine Ratio 20.8 High 8-20 Calcium 9.2 mg/dL N 8.6-10.3 Total Protein 6.5 g/dL N 6.4-8.9 Albumin 4.1 g/dL N 3.2-5.2 Globulin 2.4 g/dL N 2-4 Albumin/Globulin Ratio 1.7 N 1-3 Total Bilirubin 0.60 mg/dL N 0.2-1.0 Alkaline Phosphatase 83 U/L N 34-104 Alt 26 U/L N 7-52 Ast 24 U/L N 13-39 Egfr Non- 118.6 N >60 Egfr 152.5 N >60 16 Urine Microalbumin 05/17/2016 [facility] Ur Microalbumin < 15.0 N Random [address] (mg/L) mg/[place] [address] [phone] Urine Creatinine 370.12 mg/dL N Urine Microalbumin/Creatinine TNP ug/mg N <31 17 Laboratory test 05/17/2016 [facility] Hemoglobin A1c 5.6 5-7 finding Lipid Profile 05/14/2016 [facility] Triglycerides 104 mg/dL N 18 (Trig/Chol/HDL) [address] [place] [address] [phone] Cholesterol 218 mg/dL N 19 HDL Cholesterol 45.0 mg/dL N 20 LDL Cholesterol 152 mg/dL N 21 CBC No Diff 04/15/2016 [facility] White Blood 6.3 10^3/uL N 3.5-10.[address] [place] [address] [phone] Red Blood Count 5.25 10^6/uL N 4.0-5.4 Hemoglobin 14.6 g/dL N 14.0-18.0 Hematocrit 45 % N 42-52 Mean Corpuscular Volume 85 fL N 80-94 Mean Corpuscular Hemoglobin 28 pg N 27-31 Mean Corpuscular HGB Conc 33 g/dL N 31-36 Red Cell Distribution Width 15 % N 10.5-15 Platelet Count 211 10^3/uL N 150-450 Mean Platelet Volume 8 um3 N 7.4-10.4 Inr/Protime 04/15/2016 [facility] Inr 0.93 N 0.89-1.11 [address] [place] [address] [phone] Basic Metabolic 04/15/2016 [facility] Sodium 138 mmol/L N 133- 145 Panel [address] [place] [address] [phone] Potassium 4.3 mmol/L N 3.5-5.0 Chloride 105 mmol/L N 101-111 Co2 Carbon Dioxide 28 mmol/L N 22-32 Anion Gap 5 mmol/L N 2-11 Glucose 105 mg/dL High 70-100 Blood Urea Nitrogen 15 mg/dL N 6-24 Creatinine 0.83 mg/dL N 0.67-1.17 BUN/Creatinine Ratio 18.1 N 8-20 Calcium 9.4 mg/dL N 8.6-10.3 Egfr Non- 100.6 N >60 Egfr 129.4 N >60 22 Laboratory test 03/02/2016 [facility] Ferritin 37.1 ng/mL N 24 -336 finding 101 [place] [address] [phone] Folic Acid (Folate) > 20.00 ng/mL N >3.99 Vitamin B12 1317 pg/mL High 180-914 23 Vitamin D Total 25(Oh) 33.9 ng/mL N 30-50 Vitamin B1 (Whole Blood) 132 nmol/L N 70-180 24 Vitamin E Level 10.4 mg/L N 5.5 - 17.0 25 Iron & Iron Binding 03/02/2016 [facility] Iron 122 g/dL N 50 -212 Capacity [address] [place] [address] [phone] Unsaturated Iron Binding 241 g/dL N Total Iron Binding Capacity 363 g/dL N 250-450 % Iron Saturation 34 % N 15-55 Comp Metabolic Panel 03/02/2016 [facility] Sodium 137 mmol/L N 133-145 [address] [place] [address] [phone] Potassium 4.4 mmol/L N 3.5-5.0 Chloride 102 mmol/L N 101-111 Co2 Carbon Dioxide 31 mmol/L N 22-32 Anion Gap 4 mmol/L N 2-11 Glucose 88 mg/dL N 70-100 Blood Urea Nitrogen 16 mg/dL N 6-24 Creatinine 0.76 mg/dL N 0.67-1.17 BUN/Creatinine Ratio 21.1 High 8-20 Calcium 9.6 mg/dL N 8.6-10.3 Total Protein 6.9 g/dL N 6.4-8.9 Albumin 3.8 g/dL N 3.2-5.2 Globulin 3.1 g/dL N 2-4 Albumin/Globulin Ratio 1.2 N 1-3 Total Bilirubin 0.70 mg/dL N 0.2-1.0 Alkaline Phosphatase 117 U/L High 34-104 Alt 26 U/L N 7-52 Ast 24 U/L N 13-39 Egfr Non- 111.4 N >60 Egfr 143.3 N >60 26 CBC Auto Diff 03/02/2016 [facility] White Blood 6.5 10^3/uL N 3.5-10.[address] [place] [address] [phone] Red Blood Count 5.05 10^6/uL N 4.0-5.4 Hemoglobin 14.2 g/dL N 14.0-18.0 Hematocrit 43 % N 42-52 Mean Corpuscular Volume 86 fL N 80-94 Mean Corpuscular Hemoglobin 28 pg N 27-31 Mean Corpuscular HGB Conc 33 g/dL N 31-36 Red Cell Distribution Width 15 % N 10.5-15 Platelet Count 202 10^3/uL N 150-450 Mean Platelet Volume 7 um3 Low 7.4-10.4 Abs Neutrophils 2.7 10^3/uL N 1.5-7.7 Abs Lymphocytes 3.2 10^3/uL N 1.0-4.8 Abs Monocytes 0.4 10^3/uL N 0-0.8 Abs Eosinophils 0.1 10^3/uL N 0-0.6 Abs Basophils 0.1 10^3/uL N 0-0.2 Abs Nucleated RBC 0 10^3/uL N Granulocyte % 41.7 % N 38-83 Lymphocyte % 49.5 % High 25-47 Monocyte % 6.5 % N 1-9 Eosinophil % 1.4 % N 0-6 Basophil % 0.9 % N 0-2 Nucleated Red Blood Cells % 0.1 N Laboratory 02/19/2016 [facility] Lactic Acid 0.8 mmol/L N 0.5- 2.0 27 test finding [address] [place] [address] [phone] Laboratory 02/19/2016 [facility] Troponin-I 0.33 ng/mL High < 0.04 28 test finding [address] (TnI) [place], [place] [id number] [phone] Laboratory 02/19/2016 [facility] Rapid Strep POSITIVE Abnormal Negative 29 test finding [address] Molecular [place], [place] [id number] [phone] Rapid 02/19/2016 [facility] Influenza A NEGATIVE N Negative 30 Influenza A & [address] [place] [address] [phone] Influenza B Molecular NEGATIVE N Negative Laboratory test 02/19/2016 [facility] Rapid Strep A SEE RESULT [address] BELOW [place], [place] [address] [phone] Laboratory test 02/19/2016 [facility] Point of Care 216 mg/dL High 74-10 [address] Glucose 6 [place], [place] [id number] [phone] CBC Auto Diff 02/19/2016 [facility] White Blood 22.5 10^3/uL High 3.5-[address] Count 0.8 [place], [place] [id number] [phone] Red Blood Count 5.09 10^6/uL N 4.0-5.4 Hemoglobin 14.6 g/dL N 14.0-18.0 Hematocrit 44 % N 42-52 Mean Corpuscular Volume 87 fL N 80-94 Mean Corpuscular Hemoglobin 29 pg N 27-31 Mean Corpuscular HGB Conc 33 g/dL N 31-36 Red Cell Distribution Width 15 % N 10.5-15 Platelet Count 238 10^3/uL N 150-450 Mean Platelet Volume 8 um3 N 7.4-10.4 Abs Neutrophils 16.5 10^3/uL High 1.5-7.7 Abs Lymphocytes 4.2 10^3/uL N 1.0-4.8 Abs Monocytes 1.4 10^3/uL High 0-0.8 Abs Eosinophils 0.3 10^3/uL N 0-0.6 Abs Basophils 0.1 10^3/uL N 0-0.2 Abs Nucleated RBC 0.01 10^3/uL N Granulocyte % 73.6 % N 38-83 Lymphocyte % 18.6 % Low 25-47 Monocyte % 6.3 % N 1-9 Eosinophil % 1.1 % N 0-6 Basophil % 0.4 % N 0-2 Nucleated Red Blood Cells % 0 N Comp Metabolic Panel 02/19/2016 [facility] Sodium 138 mmol/L N 133-145 [address] [place] [address] [phone] Potassium 4.0 mmol/L N 3.5-5.0 Chloride 105 mmol/L N 101-111 Co2 Carbon Dioxide 21 mmol/L Low 22-32 Anion Gap 12 mmol/L High 2-11 Glucose 210 mg/dL High 70-100 Blood Urea Nitrogen 22 mg/dL N 6-24 Creatinine 1.19 mg/dL High 0.67-1.17 BUN/Creatinine Ratio 18.5 N 8-20 Calcium 9.4 mg/dL N 8.6-10.3 Total Protein 7.3 g/dL N 6.4-8.9 Albumin 3.8 g/dL N 3.2-5.2 Globulin 3.5 g/dL N 2-4 Albumin/Globulin Ratio 1.1 N 1-3 Total Bilirubin 1.10 mg/dL High 0.2-1.0 Alkaline Phosphatase 148 U/L High 34-104 Alt 32 U/L N 7-52 Ast 33 U/L N 13-39 Egfr Non- 66.4 N >60 Egfr 85.4 N >60 33 Laboratory test 02/19/2016 [facility] Lactic Acid 2.7 mmol/L High 0.5-2.0 34 finding [address] [place] [address] [phone] Rapid Influenza A B Antigen SEE RESULT BELOW 35 Monospot Negative N Negative 36 Troponin-I (TnI) 0.01 ng/mL N <0.04 37 Magnesium 1.8 mg/dL Low 1.9-2.7 Hemoglobin A1c (Glyco HGB) 5.5 % N Less than 6.0 38 Blood Culture SEE RESULT BELOW 39 Culture Throat SEE RESULT BELOW 40 Comp Metabolic Panel 02/07/2016 [facility] Sodium 137 mmol/L N 133-145 [address] [place] [address] [phone] Potassium 3.8 mmol/L N 3.5-5.0 Chloride 104 mmol/L N 101-111 Co2 Carbon Dioxide 28 mmol/L N 22-32 Anion Gap 5 mmol/L N 2-11 Glucose 81 mg/dL N 70-100 Blood Urea Nitrogen 19 mg/dL N 6-24 Creatinine 0.70 mg/dL N 0.67-1.17 BUN/Creatinine Ratio 27.1 High 8-20 Calcium 9.8 mg/dL N 8.6-10.3 Total Protein 6.8 g/dL N 6.4-8.9 Albumin 3.9 g/dL N 3.2-5.2 Globulin 2.9 g/dL N 2-4 Albumin/Globulin Ratio 1.3 N 1-3 Total Bilirubin 0.60 mg/dL N 0.2-1.0 Alkaline Phosphatase 87 U/L N 34-104 Alt 24 U/L N 7-52 Ast 25 U/L N 13-39 Egfr Non- 122.5 N >60 Egfr 157.6 N >60 41 Laboratory test finding 02/07/2016 [facility] Amylase 26 U/L Low 29-[address] [place] [address] [phone] Lipase 35 U/L N 11.0-82.0 C Reactive Protein 1.43 mg/L N < 5.00 42 CBC Auto Diff 02/07/2016 [facility] White Blood 8.2 10^3/uL N 3.5-10.[address] [place] [address] [phone] Red Blood Count 5.21 10^6/uL N 4.0-5.4 Hemoglobin 15.0 g/dL N 14.0-18.0 Hematocrit 45 % N 42-52 Mean Corpuscular Volume 86 fL N 80-94 Mean Corpuscular Hemoglobin 29 pg N 27-31 Mean Corpuscular HGB Conc 34 g/dL N 31-36 Red Cell Distribution Width 14 % N 10.5-15 Platelet Count 220 10^3/uL N 150-450 Mean Platelet Volume 8 um3 N 7.4-10.4 Abs Neutrophils 4.6 10^3/uL N 1.5-7.7 Abs Lymphocytes 2.9 10^3/uL N 1.0-4.8 Abs Monocytes 0.5 10^3/uL N 0-0.8 Abs Eosinophils 0.1 10^3/uL N 0-0.6 Abs Basophils 0.1 10^3/uL N 0-0.2 Abs Nucleated RBC 0.01 10^3/uL N Granulocyte % 55.9 % N 38-83 Lymphocyte % 35.7 % N 25-47 Monocyte % 5.9 % N 1-9 Eosinophil % 1.6 % N 0-6 Basophil % 0.9 % N 0-2 Nucleated Red Blood Cells % 0.1 N Laboratory test 02/07/2016 [facility] Lactic Acid 0.7 mmol/L N 0.5-2.0 [address] [place] [address] [phone] Urinalysis 02/07/2016 [facility] Urine Color Straw N Profile [address] [place] [address] [phone] Urine Appearance Clear N Urine Specific [place] 1.009 Low 1.010-1.030 Urine pH 6.0 N 5-9 Urine Urobilinogen Negative N Negative Urine Ketones Negative N Negative Urine Protein Negative N Negative Urine Leukocytes Negative N Negative Urine Blood Negative N Negative Urine Nitrite Negative N Negative Urine Bilirubin Negative N Negative Urine Glucose Negative N Negative Laboratory test 01/14/2016 [facility] Rapid Group A negitive finding Strep Laboratory test 01/14/2016 [facility] Culture Throat SEE RESULT [address] [place] [address] [phone] C trachomatis Misc 01/14/2016 [facility] C trachomatis THROAT N Source Rna [address] Source [place], [place] [id number] [phone] Chlamydia trachomatis Rna Negative N Negative 45 N gonorrhoea Misc 01/14/2016 [facility] N. gonorrhoeae THROAT N Source Rna [address] Source [place], [place] [id number] [phone] Neisseria Gonorrhoeae Rna Negative N Negative 46 HIV 1/2 AB 12/19/2015 [facility] HIV 1 2 Nonreactive N Nonreactive [address] Antibody [place], [place] 133[address]293 [phone] GC/Chlamydia 12/19/2015 [facility] Chlamydia Negative N Negative Amplified Rna [address] [place] [address] Rna [phone] Neisseria gonorrhoeae (GC) Rna Negative N Negative Laboratory 12/19/2015 [facility] Syphillis Nonreactive N Nonreactive 48 test finding [address] Igg W/[place] [address] RPR [phone] CBC Auto Diff 12/19/2015 [facility] White Blood 8.3 10^3/uL N 3.5-10.[address] [place] [address] [phone] Red Blood Count 5.20 10^6/uL N 4.0-5.4 Hemoglobin 15.0 g/dL N 14.0-18.0 Hematocrit 46 % N 42-52 Mean Corpuscular Volume 88 fL N 80-94 Mean Corpuscular Hemoglobin 29 pg N 27-31 Mean Corpuscular HGB Conc 33 g/dL N 31-36 Red Cell Distribution Width 15 % N 10.5-15 Platelet Count 277 10^3/uL N 150-450 Mean Platelet Volume 8 um3 N 7.4-10.4 Abs Neutrophils 4.5 10^3/uL N 1.5-7.7 Abs Lymphocytes 3.1 10^3/uL N 1.0-4.8 Abs Monocytes 0.4 10^3/uL N 0-0.8 Abs Eosinophils 0.2 10^3/uL N 0-0.6 Abs Basophils 0 10^3/uL N 0-0.2 Abs Nucleated RBC 0 10^3/uL N Granulocyte % 54.7 % N 38-83 Lymphocyte % 36.9 % N 25-47 Monocyte % 5.2 % N 1-9 Eosinophil % 2.6 % N 0-6 Basophil % 0.6 % N 0-2 Nucleated Red Blood Cells % 0 N Laboratory 12/19/2015 [facility] Hepatitis C Nonreactive N Nonreactive test finding [address] [place] [address] [phone] Hepatitis B 12/19/2015 [facility] Hepatitis B Reactive N Nonreactive Aga AB Titer [address] [place] [address] [phone] Hep B Surf AB Level 97.47 mIU/mL N <12 49 Laboratory test 11/13/2015 [facility] Hemoglobin A1c 5.3 5-7 finding Comp Metabolic Panel 05/14/2015 [facility] Sodium 136 mmol/L N 133-[address] [place] [address] [phone] Potassium 4.2 mmol/L N 3.5-5.0 Chloride 103 mmol/L N 101-111 Co2 Carbon Dioxide 27 mmol/L N 22-32 Anion Gap 6 mmol/L N 2-11 Glucose 80 mg/dL N 70-100 Blood Urea Nitrogen 14 mg/dL N 6-24 Creatinine 0.72 mg/dL N 0.67-1.17 BUN/Creatinine Ratio 19.4 N 8-20 Calcium 9.4 mg/dL N 8.6-10.3 Total Protein 6.7 g/dL N 6.4-8.9 Albumin 4.2 g/dL N 3.2-5.2 Globulin 2.5 g/dL N 2-4 Albumin/Globulin Ratio 1.7 N 1-3 Total Bilirubin 0.70 mg/dL N 0.2-1.0 Alkaline Phosphatase 109 U/L High 34-104 Alt 26 U/L N 7-52 Ast 26 U/L N 13-39 Egfr Non- 119.1 N >60 Egfr 153.2 N >60 50 Laboratory test 05/14/2015 [facility] Hemoglobin A1c 5.9 % N Less 51 finding 101 (Glyco HGB) than 6.0 [place] [address] [phone] Urine 05/14/2015 [facility] Ur Microalbumin 12.0 N Microalbumin 101 (mg/L) mg/[place] [address] [phone] Urine Creatinine 398.86 mg/dL N Urine Microalbumin/Creatinine 3.0 ug/mg N <31 Urinalysis Profile 05/14/2015 [facility] Urine Color Licha N [address] [place] [address] [phone] Urine Appearance Clear N Urine Specific [place] 1.027 N 1.010-1.030 Urine pH 5.0 N 5-9 Urine Urobilinogen Positive Abnormal Negative Urine Ketones Negative N Negative Urine Protein Negative N Negative Urine Leukocytes Negative N Negative Urine Blood Negative N Negative Urine Nitrite Negative N Negative Urine Bilirubin Negative N Negative Urine Glucose Negative N Negative Lipid Profile 05/14/2015 [facility] Triglycerides 136 mg/dL N 52 (Trig/Chol/HDL) [address] [place] [address] [phone] Cholesterol 179 mg/dL N 53 HDL Cholesterol 34.6 mg/dL N 54 LDL Cholesterol 117 mg/dL N 55 CBC Auto Diff 05/14/2015 [facility] White Blood 7.9 10^3/uL N 3.5-10.[address] [place] [address] [phone] Red Blood Count 5.45 10^6/uL High 4.0-5.4 Hemoglobin 15.3 g/dL N 14.0-18.0 Hematocrit 47 % N 42-52 Mean Corpuscular Volume 87 fL N 80-94 Mean Corpuscular Hemoglobin 28 pg N 27-31 Mean Corpuscular HGB Conc 32 g/dL N 31-36 Red Cell Distribution Width 16 % High 10.5-15 Platelet Count 238 10^3/uL N 150-450 Mean Platelet Volume 9 um3 N 7.4-10.4 Abs Neutrophils 5.0 10^3/uL N 1.5-7.7 Abs Lymphocytes 2.2 10^3/uL N 1.0-4.8 Abs Monocytes 0.4 10^3/uL N 0-0.8 Abs Eosinophils 0.2 10^3/uL N 0-0.6 Abs Basophils 0.1 10^3/uL N 0-0.2 Abs Nucleated RBC 0 10^3/uL N Granulocyte % 63.1 % N 38-83 Lymphocyte % 28.1 % N 25-47 Monocyte % 5.0 % N 1-9 Eosinophil % 3.1 % N 0-6 Basophil % 0.7 % N 0-2 Nucleated Red Blood Cells % 0 N Laboratory test 05/14/2015 [facility] Vitamin D 27.0 ng/mL Low 30-50 [address] Total 25(Oh) [place] [address] [phone] Urinalysis 04/07/2015 [facility] Urine Color Yellow N Profile [address] [place] [address] [phone] Urine Appearance Clear N Urine Specific [place] 1.025 N 1.010-1.030 Urine pH 7.0 N 5-9 Urine Urobilinogen Negative N Negative Urine Ketones Trace Abnormal Negative Urine Protein Negative N Negative Urine Leukocytes Negative N Negative Urine Blood Negative N Negative Urine Nitrite Negative N Negative Urine Bilirubin Negative N Negative Urine Glucose Negative N Negative Comp Metabolic Panel 12/27/2014 [facility] Sodium 136 mmol/L N 133-[address] [place] [address] [phone] Potassium 4.4 mmol/L N 3.5-5.0 Chloride 102 mmol/L N 101-111 Co2 Carbon Dioxide 25 mmol/L N 22-32 Anion Gap 9 mmol/L N 2-11 Glucose 119 mg/dL High 70-100 Blood Urea Nitrogen 20 mg/dL N 6-24 Creatinine 0.86 mg/dL N 0.67-1.17 BUN/Creatinine Ratio 23.3 High 8-20 Calcium 9.3 mg/dL N 8.6-10.3 Total Protein 7.2 g/dL N 6.4-8.9 Albumin 4.3 g/dL N 3.2-5.2 Globulin 2.9 g/dL N 2-4 Albumin/Globulin Ratio 1.5 N 1-3 Total Bilirubin 0.40 mg/dL N 0.2-1.0 Alkaline Phosphatase 123 U/L High 34-104 Alt 24 U/L N 7-52 Ast 20 U/L N 13-39 Egfr Non- 97.1 N >60 Egfr 124.8 N >60 57 Laboratory test 12/27/2014 [facility] Hemoglobin A1c 6.4 % High Less [address] (Glyco HGB) than 6.0 [place] [address] [phone] Urine 12/27/2014 [facility] Ur Microalbumin 6.[address] Microalbumin [address] (mg/L) mg/[place] [address] [phone] Urine Creatinine 339.41 mg/dL N Urine Microalbumin/Creatinine 1.7 ug/mg N <31 Lipid Profile 12/27/2014 [facility] Triglycerides 171 mg/dL N 59 (Trig/Chol/HDL) [address] [place] [address] [phone] Cholesterol 174 mg/dL N 60 HDL Cholesterol 32.5 mg/dL N 61 LDL Cholesterol 107 mg/dL N 62 Laboratory test 11/25/2014 [facility] Wound Culture/Sensi SEE RESULT [address] [place] [address] [phone] Urinalysis 11/25/2014 [facility] Urine Color Yellow N Profile [address] [place] [address] [phone] Urine Appearance Clear N Urine Specific [place] 1.023 N 1.010-1.030 Urine pH 6.0 N 5-9 Urine Urobilinogen Negative N Negative Urine Ketones Negative N Negative Urine Protein Negative N Negative Urine Leukocytes Negative N Negative Urine Blood Negative N Negative Urine Nitrite Negative N Negative Urine Bilirubin Negative N Negative Urine Glucose Negative N Negative Laboratory test 11/25/2014 [facility] Urine Culture And SEE RESULT [address] [place] [address] [phone] Laboratory test 09/26/2014 [facility] Surgical Pathology SEE RESULT [address] [place], [place] [address] [phone] Laboratory test 09/26/2014 [facility] Clotest SEE RESULT [address] [place] [address] [phone] Comp Metabolic 08/12/2014 [facility] Sodium 134 mmol/L N 133- [address] [place] [address] [phone] Potassium 4.4 mmol/L N 3.5-5.0 Chloride 102 mmol/L N 101-111 Co2 Carbon Dioxide 25 mmol/L N 22-32 Anion Gap 7 mmol/L N 2-11 Glucose 157 mg/dL High 70-100 Blood Urea Nitrogen 13 mg/dL N 6-24 Creatinine 0.80 mg/dL N 0.67-1.17 BUN/Creatinine Ratio 16.3 N 8-20 Calcium 9.1 mg/dL N 8.6-10.3 Total Protein 6.4 g/dL N 6.4-8.9 Albumin 3.9 g/dL N 3.2-5.2 Globulin 2.5 g/dL N 2-4 Albumin/Globulin Ratio 1.6 N 1-3 Total Bilirubin 0.40 mg/dL N 0.2-1.0 Alkaline Phosphatase 100 U/L N 34-104 Alt 33 U/L N 7-52 Ast 26 U/L N 13-39 Egfr Non- 106.0 N >60 Egfr 136.3 N >60 67 Laboratory test 08/12/2014 [facility] Hemoglobin A1c 7.5 % High Less [address] (Glyco HGB) than 6.0 [place] [address] [phone] Lipid Profile 08/12/2014 [facility] Triglycerides 237 N 69 (Trig/Chol/HDL) [address] mg/[place] [address] [phone] Cholesterol 169 mg/dL N 70 HDL Cholesterol 28.4 mg/dL N 71 LDL Cholesterol 93 mg/dL N 72 Laboratory test 04/18/2014 [facility] Hemoglobin A1c 6.9 % High Less 73, [address] than 6.0 [place] [address] [phone] Comp Metabolic 04/18/2014 [facility] Sodium 136 N 133-[address] mmol/[place] [address] [phone] Potassium 4.1 mmol/L N 3.5-5.0 Chloride 104 mmol/L N 101-111 Co2 Carbon Dioxide 26 mmol/L N 22-32 Anion Gap 6 mmol/L N 2-11 Glucose 135 mg/dL High 70-100 Blood Urea Nitrogen 13 mg/dL N 6-24 Creatinine 0.93 mg/dL N 0.67-1.17 BUN/Creatinine Ratio 14.0 N 8-20 Calcium 9.5 mg/dL N 8.6-10.3 Total Protein 7.3 g/dL N 6.4-8.9 Albumin 4.3 g/dL N 3.2-5.2 Globulin 3.0 g/dL N 2-4 Albumin/Globulin Ratio 1.4 N 1-3 Total Bilirubin 0.40 mg/dL N 0.2-1.0 Alkaline Phosphatase 101 U/L N 34-104 Alt 41 U/L N 7-52 Ast 28 U/L N 13-39 Egfr Non- 89.1 N >60 Egfr 114.6 N >60 75 Urine Microalbumin 03/08/2014 [facility] Ur Microalbumin 22.0 mg /L N Random [address] (mg/L) [place] [address] [phone] Urine Creatinine 280.58 mg/dL N Urine Microalbumin/Creatinine 7.8 N Less Than 31 Laboratory test 03/08/2014 [facility] Hemoglobin A1c 7.6 % High Less than [address] 6.0 [place], [place] [address] [phone] CBC Auto Diff 03/08/2014 [facility] White Blood 8.0 N 4.8- 10.[address] Count 10^3/uL [place], [place] [address] [phone] Red Blood Count 5.19 10^6/uL N 4.0-5.4 Hemoglobin 14.7 g/dL N 14.0-18.0 Hematocrit 44 % N 42-52 Mean Corpuscular Volume 84 fL N 80-94 Mean Corpuscular Hemoglobin 28 pg N 27-31 Mean Corpuscular HGB Conc 34 g/dL N 31-36 Red Cell Distribution Width 15 % N 10.5-15 Platelet Count 244 10^3/uL N 150-450 Mean Platelet Volume 8 um3 N 7.4-10.4 Abs Neutrophils 4.3 10^3/uL N 1.5-7.7 Abs Lymphocytes 3.0 10^3/uL N 1.0-4.8 Abs Monocytes 0.4 10^3/uL N 0-0.8 Abs Eosinophils 0.2 10^3/uL N 0-0.6 Abs Basophils 0.1 10^3/uL N 0-0.2 Abs Nucleated RBC 0 10^3/uL N Granulocyte % 53.5 % N 38-83 Lymphocyte % 37.5 % N 25-47 Monocyte % 5.3 % N 1-9 Eosinophil % 2.9 % N 0-6 Basophil % 0.8 % N 0-2 Nucleated Red Blood Cells % 0 N Lipid Profile 03/08/2014 [facility] Triglycerides 241 mg/dL N 77 (Trig/Chol/HDL) [address] [place] [address] [phone] Cholesterol 201 mg/dL N 78 HDL Cholesterol 38.6 mg/dL N 79 LDL Cholesterol 114 mg/dL N 80 Laboratory test 03/08/2014 [facility] TSH (Thyroid 2.20 IU/mL N 0.34-5.[address] [place] [address] Horm) [phone] Urinalysis 03/08/2014 [facility] Urine Color Yellow N Profile [address] [place] [address] [phone] Urine Appearance Clear N Urine Specific [place] 1.031 High 1.010-1.030 Urine pH 5.0 N 5-9 Urine Urobilinogen Negative N Negative Urine Ketones Negative N Negative Urine Protein Negative N Negative Urine Leukocytes Negative N Negative Urine Blood Negative N Negative Urine Nitrite Negative N Negative Urine Bilirubin Negative N Negative Urine Glucose Negative N Negative Comp Metabolic Panel 03/08/2014 [facility] Sodium 136 mmol/L N 133-[address] [place] [address] [phone] Potassium 3.9 mmol/L N 3.5-5.0 Chloride 102 mmol/L N 101-111 Co2 Carbon Dioxide 26 mmol/L N 22-32 Anion Gap 8 mmol/L N 2-11 Glucose 131 mg/dL High 70-100 Blood Urea Nitrogen 17 mg/dL N 6-24 Creatinine 0.76 mg/dL N 0.67-1.17 BUN/Creatinine Ratio 22.4 High 8-20 Calcium 9.9 mg/dL N 8.6-10.3 Total Protein 7.6 g/dL N 6.4-8.9 Albumin 4.4 g/dL N 3.2-5.2 Globulin 3.2 g/dL N 2-4 Albumin/Globulin Ratio 1.4 N 1-3 Total Bilirubin 0.50 mg/dL N 0.2-1.0 Alkaline Phosphatase 91 U/L N 34-104 Alt 61 U/L High 7-52 Ast 49 U/L High 13-39 Egfr Non- 112.5 N >60 Egfr 144.6 N >60 81 1 Because ethnic data is not always readily available, this report includes an eGFR for both -Americans and non- Americans. The National Kidney Disease Education Program (NKDEP) does not endorse the use of the MDRD equation for patients that are not between the ages of 18 and 70, are , have extremes of body size, muscle mass, or nutritional status, or are non- or non-. According to the National Kidney Foundation, irrespective of diagnosis, the stage of the disease is based on the level of kidney function: Stage Description GFR(mL/min/1.73 m(2)) 1 Kidney damage with normal or decreased GFR 90 2 Kidney damage with mild decrease in GFR 60-89 3 Moderate decrease in GFR 30-59 4 Severe decrease in GFR 15-29 5 Kidney failure <15 (or dialysis) 2 Because ethnic data is not always readily available, this report includes an eGFR for both -Americans and non- Americans. The National Kidney Disease Education Program (NKDEP) does not endorse the use of the MDRD equation for patients that are not between the ages of 18 and 70, are , have extremes of body size, muscle mass, or nutritional status, or are non- or non-. According to the National Kidney Foundation, irrespective of diagnosis, the stage of the disease is based on the level of kidney function: Stage Description GFR(mL/min/1.73 m(2)) 1 Kidney damage with normal or decreased GFR 90 2 Kidney damage with mild decrease in GFR 60-89 3 Moderate decrease in GFR 30-59 4 Severe decrease in GFR 15-29 5 Kidney failure <15 (or dialysis) 3 Normal Range 180 to 914 Indeterminate Range 145 to 180 Deficient Range <145 4 Therapeutic target for the treatment of diabetes mellitus patients is <7% HBA1C, and in selective patients <6.0%. Please refer to [place] [employer] diabetic care guidelines for further information. 5 ADDITIONAL INFORMATION This test was developed and its performance characteristics determined by [facility] in a manner consistent with CLIA requirements. This test has not been cleared or approved by the U.S. Food and Drug Administration. Test Performed by: [facility] [place] [address] 6 ADDITIONAL INFORMATION This test was developed and its performance characteristics determined by [facility] in a manner consistent with CLIA requirements. This test has not been cleared or approved by the U.S. Food and Drug Administration. Test Performed by: [facility] [address] 7 Promotion Officer: [id number] Because ethnic data is not always readily available, this report includes an eGFR for both -Americans and non- Americans. The National Kidney Disease Education Program (NKDEP) does not endorse the use of the MDRD equation for patients that are not between the ages of 18 and 70, are , have extremes of body size, muscle mass, or nutritional status, or are non- or non-. According to the National Kidney Foundation, irrespective of diagnosis, the stage of the disease is based on the level of kidney function: Stage Description GFR(mL/min/1.73 m(2)) 1 Kidney damage with normal or decreased GFR 90 2 Kidney damage with mild decrease in GFR 60-89 3 Moderate decrease in GFR 30-59 4 Severe decrease in GFR 15-29 5 Kidney failure <15 (or dialysis) 9 *Ascorbic acid is present which may interfere with detection of blood. 10 Unable to calculate due to low microalbumin 11 [id number] SEE RESULT BELOW Name: ENEDINA PUENTES : [address]: Maria Dolores Joe NP Acct: [id number] Unit: [id number] AGE: 46 Location: [facility] Re01/20/17 SEX: M Status: REG REF SPEC: [id number] CLAUDIA: 01/20/[address]: Maria Dolores Joe NP REQ: [id number] RECD: 01/20/17 STATUS: COMP _ SOURCE: THROAT SPDESC: ORDERED: Throat Culture COMMENTS: [id number] Procedure Result Reported Site Throat Culture Final 01/22/17- 1113 ML Organism 1 NORMAL MARTHA Quantity 3+ Throat cultures are clinically indicated to detect the presence of group A strep, arcanobacterium and yeast. In certain cases, predominating organisms will be reported. * ML - MAIN LAB ([facility]) . END OF REPORT * ML=Testing performed at Main Lab DEPARTMENT OF PATHOLOGY, [address] [place] [address] John Herr M.D. Director [facility] # [id number] 13 ADDITIONAL INFORMATION This test was developed and its performance characteristics determined by [facility] in a manner consistent with CLIA requirements. This test has not been cleared or approved by the U.S. Food and Drug Administration. Test Performed by: [place] [id number] INTERPRETIVE INFORMATION: Vitamin B12 Binding Capacity This assay measures the unsaturated binding capacity of serum for Vitamin B12. Performed by [facility], [address] [place] [address] [email or web address] Valeriy Lau MD - Lab. Director Test Performed by: [facility] [address] [place] [address] 15 ADDITIONAL INFORMATION This test was developed and its performance characteristics determined by [facility] in a manner consistent with CLIA requirements. This test has not been cleared or approved by the U.S. Food and Drug Administration. Test Performed by: [facility] [address] [place] [address] 16 Because ethnic data is not always readily available, this report includes an eGFR for both -Americans and non- Americans. The National Kidney Disease Education Program (NKDEP) does not endorse the use of the MDRD equation for patients that are not between the ages of 18 and 70, are , have extremes of body size, muscle mass, or nutritional status, or are non- or non-. According to the National Kidney Foundation, irrespective of diagnosis, the stage of the disease is based on the level of kidney function: Stage Description GFR(mL/min/1.73 m(2)) 1 Kidney damage with normal or decreased GFR 90 2 Kidney damage with mild decrease in GFR 60-89 3 Moderate decrease in GFR 30-59 4 Severe decrease in GFR 15-29 5 Kidney failure <15 (or dialysis) 17 Unable to calculate due to low microalbumin 18 Desirable <150 Borderline high 150-199 High 200-499 Very High >500 19 Desirable <200 Borderline high 200-239 High >239 20 Low <40 Desirable: 40-60 High: >60 21 Desirable: <100 mg/dL Near Optimal: 100-129 mg/dL Borderline High: 130-159 mg/dL High: 160-189 mg/dL Very High: >189 mg/dL 22 Because ethnic data is not always readily available, this report includes an eGFR for both -Americans and non- Americans. The National Kidney Disease Education Program (NKDEP) does not endorse the use of the MDRD equation for patients that are not between the ages of 18 and 70, are , have extremes of body size, muscle mass, or nutritional status, or are non- or non-. According to the National Kidney Foundation, irrespective of diagnosis, the stage of the disease is based on the level of kidney function: Stage Description GFR(mL/min/1.73 m(2)) 1 Kidney damage with normal or decreased GFR 90 2 Kidney damage with mild decrease in GFR 60-89 3 Moderate decrease in GFR 30-59 4 Severe decrease in GFR 15-29 5 Kidney failure <15 (or dialysis) 23 Normal Range 180 to 914 Indeterminate Range 145 to 180 Deficient Range <145 24 ADDITIONAL INFORMATION This test was developed and its performance characteristics determined by [facility] in a manner consistent with CLIA requirements. This test has not been cleared or approved by the U.S. Food and Drug Administration. Test Performed by: [facility] [place] [address] Industrial Locomotive Operator: Faheem Peralta II, M.D., Ph.D. 25 ADDITIONAL INFORMATION This test was developed and its performance characteristics determined by [facility] in a manner consistent with CLIA requirements. This test has not been cleared or approved by the U.S. Food and Drug Administration. Test Performed by: [facility] [place] [address] Industrial Locomotive Operator: Faheem Peralta II, M.D., Ph.D. 26 Because ethnic data is not always readily available, this report includes an eGFR for both -Americans and non- Americans. The National Kidney Disease Education Program (NKDEP) does not endorse the use of the MDRD equation for patients that are not between the ages of 18 and 70, are , have extremes of body size, muscle mass, or nutritional status, or are non- or non-. According to the National Kidney Foundation, irrespective of diagnosis, the stage of the disease is based on the level of kidney function: Stage Description GFR(mL/min/1.73 m(2)) 1 Kidney damage with normal or decreased GFR 90 2 Kidney damage with mild decrease in GFR 60-89 3 Moderate decrease in GFR 30-59 4 Severe decrease in GFR 15-29 5 Kidney failure <15 (or dialysis) 27 [facility] Severe Sepsis and Septic Shock Management Bundle Measure requires all lactic acids initially measuring >2.0 mmol/L be repeated. 28 Result TnIDx:0.33 Called to [id number] at: 15:22:34 by:[id number] Read back by: [id number] NOTE: Critical Troponin is now >0.03 ng/mL. 99th percentile=0.04 ng/mL Troponin results at [facility] and [facility] are not interchangeable. 29 Promotion Officer: [id number] RHONDA DE 30 Promotion Officer: [id number] DE 31 SEE RESULT BELOW Name: LEONARDMUSAENEDINA Mehrdad : [address]: Demetris Noland MD Acct: [id number] Unit: [id number] AGE: 45 Location: ED Re02/19/16 SEX: M Status: REG ER SPEC: [id number] CLAUDIA: 02/19/16-0938 [facility] DR: Demetris Noland MD REQ: [id number] RECD: 02/19/16 STATUS: ADELIA ISRAEL DR: Yo Morgan MD _ SOURCE: THROAT [facility]: ORDERED: Strep A Request COMMENTS: Procedure Result Reported Site Rapid Strep A Request Final 02/19/16- 1040 ML Specimen received for Rapid Strep A Molecular testing * ML - MAIN LAB ([facility]) . END OF REPORT * ML=Testing performed at Main Lab DEPARTMENT OF PATHOLOGY, [address] [place] [address] John Herr M.D. Director [facility] # [id number] 32 Promotion Officer: [id number] ANN-MARIE DE 33 Because ethnic data is not always readily available, this report includes an eGFR for both -Americans and non- Americans. The National Kidney Disease Education Program (NKDEP) does not endorse the use of the MDRD equation for patients that are not between the ages of 18 and 70, are , have extremes of body size, muscle mass, or nutritional status, or are non- or non-. According to the National Kidney Foundation, irrespective of diagnosis, the stage of the disease is based on the level of kidney function: Stage Description GFR(mL/min/1.73 m(2)) 1 Kidney damage with normal or decreased GFR 90 2 Kidney damage with mild decrease in GFR 60-89 3 Moderate decrease in GFR 30-59 4 Severe decrease in GFR 15-29 5 Kidney failure <15 (or dialysis) 34 Critical Result LACT:2.7 Called to OX at: 09:38:56 by:[id number] Read back by:[facility] Severe Sepsis and Septic Shock Management Bundle Measure requires all lactic acids initially measuring >2.0 mmol/L be repeated. 35 SEE RESULT BELOW Name: ENEDINA PUENTES : [address]: Demetris Noland MD Acct: [id number] Unit: [id number] AGE: 45 Location: ED Re02/19/16 SEX: M Status: REG ER SPEC: [id number] CLAUDIA: 02/19/16 [facility] DR: Demetris Noland MD REQ: [id number] RECD: 02/19/16 STATUS: COMP [facility] DR: Yo Morgan MD _ SOURCE: NASAL SPDESC: ORDERED: Flu A B Request Procedure Result Reported Site Rapid Influenza A B Request Final 02/19/16- 0950 ML Specimen received for Influenza A/B Molecular testing * ML - MAIN LAB ([facility]) . END OF REPORT * ML=Testing performed at Main Lab DEPARTMENT OF PATHOLOGY, [address] [place] [address] John Herr M.D. Director [facility] # [id number] 36 Would you like an EBV if Monospot is Negative?: N 37 NOTE: Critical Troponin is now >0.03 ng/mL. 99th percentile=0.04 ng/mL Troponin results at [facility] and [facility] are not interchangeable. 38 Therapeutic target for the treatment of diabetes Mellitus patients is <7% HBA1C, and in selective patients <6.0%.Please refer to [place] [employer] Diabetic care guidelines for further information. 39 SEE RESULT BELOW Name: ENEDINA PUENTES : [address]: Jameson Antony MD Acct: [id number] Unit: [id number] AGE: 45 Location: [place] [address] Re02/19/16 Dis: 02/20/16 SEX: M Status: DIS Saw SPEC: [id number] CLAUDIA: 02/20/[address]: Demetris Noland MD REQ: [id number] RECD: 02/20/16 STATUS: ADELIA ISRAEL DR: Yo Morgan MD _ SOURCE: BLOOD,VENO SPDESC: ORDERED: Blood Cult Procedure Result Reported Site Aerobic Culture Bottle Final 02/25/16- 0546 ML No Growth Day 5 Anaerobic Culture Bottle Final 02/25/16- 46 ML No Growth Day 5 * ML - MA[facility] LAB ([facility]) . END OF REPORT * ML=Testing performed at Main Lab DEPARTMENT OF PATHOLOGY, [address] [place] [address] John Herr M.D. Director [place] # [id number] 40 SEE RESULT BELOW Name: ENEDINA PUENTES : [address]: Jameson Antony MD Acct: [id number] Unit: [id number] AGE: 45 Location: [place] [address] Re02/19/16 SEX: M Status: ADM Saw SPEC: [id number] CLAUDIA: 02/19/[address]: Demetris Noland MD REQ: [id number] RECD: 02/19/16 STATUS: ADELIA ISRAEL DR: Yo Morgan MD _ SOURCE: THROAT [facility]: ORDERED: Throat Culture Procedure Result Reported Site Throat Culture Final 02/20/16- 1244 ML Organism 1 STREP GRP A BY BACITRACIN DISC Quantity 3+ Throat cultures are clinically indicated to detect the presence of group A strep, arcanobacterium and yeast. In certain cases, predominating organisms will be reported. * ML - MAIN LAB ([facility]) . END OF REPORT * ML=Testing performed at Main Lab DEPARTMENT OF PATHOLOGY, [address] [place] [address] John Herr M.D. Director [facility] # [id number] 41 Because ethnic data is not always readily available, this report includes an eGFR for both -Americans and non- Americans. The National Kidney Disease Education Program (NKDEP) does not endorse the use of the MDRD equation for patients that are not between the ages of 18 and 70, are , have extremes of body size, muscle mass, or nutritional status, or are non- or non-. According to the National Kidney Foundation, irrespective of diagnosis, the stage of the disease is based on the level of kidney function: Stage Description GFR(mL/min/1.73 m(2)) 1 Kidney damage with normal or decreased GFR 90 2 Kidney damage with mild decrease in GFR 60-89 3 Moderate decrease in GFR 30-59 4 Severe decrease in GFR 15-29 5 Kidney failure <15 (or dialysis) 42 Acute inflammation: >10.00 43 [facility] Severe Sepsis and Septic Shock Management Bundle Measure requires all lactic acids initially measuring >2.0 mmol/L be repeated. 44 SEE RESULT BELOW Name: ENEDINA PUENTES : [address]: Francisco J Kaiser HRBP Acct: [id number] Unit: [id number] AGE: 45 Location: [facility] Re01/14/16 SEX: M Status: REG REF SPEC: [id number] CLAUDIA: 01/14/169847 SUBM DR: Francisco J Kaiser [facility]BP REQ: [id number] RECD: 01/14/16 STATUS: COMP _ SOURCE: THROAT SPDESC: ORDERED: Throat Culture COMMENTS: [id number] Procedure Result Reported Site Throat Culture Final 01/16/16- 957 ML Organism 1 NORMAL MARTHA Quantity 2+ Throat cultures are clinically indicated to detect the presence of group A strep, arcanobacterium and yeast. In certain cases, predominating organisms will be reported. * ML - MAIN LAB ([facility]) . END OF REPORT * ML=Testing performed at Main Lab DEPARTMENT OF PATHOLOGY, [address] [place] [address] John Herr M.D. Director [facility] # [id number] 45 ADDITIONAL INFORMATION This report is intended for use in clinical monitoring and management of patients. It is not intended for use in medical-legal applications. Test Performed by: [facility] - [address] [address] Industrial Locomotive Operator: Faheem Peralta II, M.D., Ph.D. 46 ADDITIONAL INFORMATION This report is intended for use in clinical monitoring and management of patients. It is not intended for use in medical-legal applications. Test Performed by: [address] [address] Industrial Locomotive Operator: Faheem Peralta II, M.D., Ph.D. 47 It is recognized that currently available assays for the detection of antibodies to HIV-1 and/or HIV-2 may not detect all infected individuals. HIV antibodies may be undetectable in some stages of the infection and in some clinical conditions. The performance of this assay has not been established for populations of infants or children. Assayed by Chemiluminescence Microparticle Immunoassay on the Siemens Advia Centaur CP. Values obtained with different methods or kits cannot be used interchangeably.The diagnostic specificity of the ADVIA Centaur 1/O/2 Enhanced assay in the low risk population was 99.90% (6052/6058) with a 95% confidence interval of 99.78 to 99.96%. 48 Warning: A positive result is not useful for establishing a diagnosis of syphilis. In most situations, such a result may reflect a prior treated infection; a negative result can exclude a diagnosis of syphilis except for incubating or early primary disease. 49 This assay does not differentiate between reactivity due to a vaccine-induced immune response or an immune response induced by infection with HBV. 50 Because ethnic data is not always readily available, this report includes an eGFR for both -Americans and non- Americans. The National Kidney Disease Education Program (NKDEP) does not endorse the use of the MDRD equation for patients that are not between the ages of 18 and 70, are , have extremes of body size, muscle mass, or nutritional status, or are non- or non-. According to the National Kidney Foundation, irrespective of diagnosis, the stage of the disease is based on the level of kidney function: Stage Description GFR(mL/min/1.73 m(2)) 1 Kidney damage with normal or decreased GFR 90 2 Kidney damage with mild decrease in GFR 60-89 3 Moderate decrease in GFR 30-59 4 Severe decrease in GFR 15-29 5 Kidney failure <15 (or dialysis) 51 Therapeutic target for the treatment of diabetes Mellitus patients is <7% HBA1C, and in selective patients <6.0%.Please refer to [place] [employer] Diabetic care guidelines for further information. 52 Desirable <150 Borderline high 150-199 High 200-499 Very High >500 53 Desirable <200 Borderline high 200-239 High >239 54 Low <40 Desirable: 40-60 High: >60 55 Desirable: <100 mg/dL Near Optimal: 100-129 mg/dL Borderline High: 130-159 mg/dL High: 160-189 mg/dL Very High: >189 mg/dL 56 FASTING 57 Because ethnic data is not always readily available, this report includes an eGFR for both -Americans and non- Americans. The National Kidney Disease Education Program (NKDEP) does not endorse the use of the MDRD equation for patients that are not between the ages of 18 and 70, are , have extremes of body size, muscle mass, or nutritional status, or are non- or non-. According to the National Kidney Foundation, irrespective of diagnosis, the stage of the disease is based on the level of kidney function: Stage Description GFR(mL/min/1.73 m(2)) 1 Kidney damage with normal or decreased GFR 90 2 Kidney damage with mild decrease in GFR 60-89 3 Moderate decrease in GFR 30-59 4 Severe decrease in GFR 15-29 5 Kidney failure <15 (or dialysis) 58 Therapeutic target for the treatment of diabetes Mellitus patients is <7% HBA1C, and in selective patients <6.0%.Please refer to [place] [employer] Diabetic care guidelines for further information. 59 Desirable <150 Borderline high 150-199 High 200-499 Very High >500 60 Desirable <200 Borderline high 200-239 High >239 61 Low <40 Desirable: 40-60 High: >60 62 Desirable: <100 mg/dL Near Optimal: 100-129 mg/dL Borderline High: 130-159 mg/dL High: 160-189 mg/dL Very High: >189 mg/dL 63 SEE RESULT BELOW Name: JEWELLENEDINA Mehrdad : [address]: Esteban Stacy MD Acct: [id number] Unit: [id number] AGE: 43 Location: ED Re11/25/14 SEX: M Status: DEP ER SPEC: [id number] CLAUDIA: 11/25/14-[address]: Eloise VENCES REQ: [id number] RECD: 11/25/14 STATUS: ADELIA ISRAEL DR: Esteban Mitchell MD _ SOURCE: ABDOMEN SPDESC: ORDERED: Culture Stain Procedure Result Verified Site Wound/Misc Gram Stain Final 11/25/14- 1549 ML 4+ Neutrophils 1+ Gram Positive Cocci Wound/Misc Culture Final 11/27/14- 1124 ML Organism 1 STAPHYLOCOCCUS AUREUS Quantity 3+ 1. STAPHYLOCOCCUS AUREUS M.I.C. RX --------- ------ Penicillin R Clindamycin <=0.25 S Erythromycin <=0.25 S Gentamicin <=0.5 S Linezolid 2 S Nitrofurantoin 32 S Oxacillin <=0.25 S * Quinupristin/Dalfopristin <=0.25 S Rifampin <=0.5 S Tetracycline <=1 S Doxycycline - Deduced S * Minocycline - Deduced S Trimethoprim/Sulfamethoxazole <=10 S Vancomycin 1 S CONTINUED ON NEXT PAGE * ML=Testing performed at Main Lab DEPARTMENT OF PATHOLOGY, [address] [place] [address] John Herr M.D. Director [facility] # [id number] Patient: ENEDINA PUENTES [id number] (Continued) Specimen: [id number] Collected: 11/25/14-1509 Received: 11/25/14-1524 (Continued) Procedure Result Verified Site Wound/Misc Culture Final (continued) 11/27/14- 1123 1. STAPHYLOCOCCUS AUREUS (continued) M.I.C. RX --------- ------ Imipenem-Deduced S * Ampicillin/Sulbactam-Deduced S Cefazolin-Deduced S * These antibiotics are not available in the [facility] Formulary Contact the Microbiology Department for any additional antibiotic reporting. * ML - MAIN LAB ([facility]) . END OF REPORT * ML=Testing performed at Main Lab DEPARTMENT OF PATHOLOGY, [address] [place] [address] John Herr M.D. Director [facility] # [id number] 64 SEE RESULT BELOW Name: ENEDINA PUENTES : [address]: Esteban Stacy MD Acct: [id number] Unit: [id number] AGE: 43 Location: ED Re11/25/14 SEX: M Status: DEP ER SPEC: [id number] CLAUDIA: 11/25/14 [facility] DR: Capo Wyman DO REQ: [id number] RECD: 11/25/14 STATUS: ADELIA ISRAEL DR: [facility] Lazarus Mitchell MD _ SOURCE: URINE SPDESC: ORDERED: Urine Culture Procedure Result Verified Site Urine Culture Final 11/27/14- 954 ML No Growth Day 2 (<1,000 CFU/mL) * ML - [facility] LAB [facility]) . END OF REPORT * ML=Testing performed at Main Lab DEPARTMENT OF PATHOLOGY, [address] [place] [address] John Herr M.D. Director [facility] # [id number] 65 SEE RESULT BELOW Name: ENEDINA PUENTES : [address]: Tab Drummond MD Acct: [id number] Unit: [id number] AGE: 43 Location: ENDO Re09/26/14 SEX: M Status: REG REF SPEC: [id number] CLAUDIA: 09/26/14-[address]: Tab Drummond MD REQ: [id number] RECD: 09/26/140728 STATUS: SIGIFREDO ISRAEL DR: Inocencio Mitchell MD _ ORDERED: H PYLORI IMM , LEVEL IV/2 FINAL DIAGNOSIS 1. Stomach, biopsies: --Chronic active gastritis with foveolar hyperplasia and reactive changes and focal ulceration. -- No Helicobacter pylori-like organisms are identified. See comment. 2. Esophagus at 30 cm, biopsy: -- Squamous mucosa with mild reflux esophagitis. -- No glandular component identified. Comment: An immunohistochemical stain for Helicobacter pylori-like organisms was performed on part 1 and is negative. CLINICAL HISTORY Pre-bariatric surgery. History of food bolus obstruction esophagus 2002; gastroesophageal reflux disease POST-OPERATIVE DIAGNOSIS Body of esophagus - transverse ridges, biopsied at 30 cm.; GE junction 41 cm. - distal esophagus minimal Schatzki's ring, no erosive esophagitis, small hiatal hernia; stomach -proximal folds, pre-pyloric antrum variant form of gastritis, biopsied x4; pylorus and duodenum negative. Impression: Consistent with gastroesophageal reflux disease, rule out eosinophilic esophagitis, gastritis CONTINUED ON NEXT PAGE * ML=Testing performed at Main Lab DEPARTMENT OF PATHOLOGY, [address] [place] [address] John Herr M.D. Director [facility] # [id number] RUN DATE: 10/01/14 [facility] LAB LIVE PAGE 2 Patient: JEWELLENEDINA Cronin [id number] (Continued) GROSS DESCRIPTION (Continued) GROSS DESCRIPTION 1. The specimen is received in formalin labeled, Gastritis Biopsies, and consists of a 1.0 x 0.5 x 0.3 cm aggregate of multiple ceballos-pink irregular soft tissue fragments , which is submitted entirely in one cassette. 2. The specimen is received in formalin labeled, Esophageal Biopsies at 30 , and consists of a 0.6 x 0.5 x 0.2 cm aggregate of multiple ceballos-pink irregular soft tissue fragments, which is submitted entirely in one cassette. Signed (signature on file) John Herr MD 1080 END OF REPORT * ML=Testing performed at Main Lab DEPARTMENT OF PATHOLOGY, [address] [place] [address] John Herr M.D. Director [facility] # [id number] 66 SEE RESULT BELOW Name: ENEDINA PUENTES : [address]: Tab Drummond MD Acct: [id number] Unit: [id number] AGE: 43 Location: ENDO Re09/26/14 SEX: M Status: REG REF SPEC: [id number] CLAUDIA: 09/26/14-[address]: Tab Drummond MD REQ: [id number] RECD: 09/26/14-1421 STATUS: ADELIA ISRAEL DR: Lazarus Mitchell MD _ SOURCE: GAS ANTRUM SPDESC: ORDERED: Clotest Procedure Result Verified Site Clotest Final 09/27/14- 723 ML Clotest Negative * ML - [facility] LAB [facility]) . END OF REPORT * ML=Testing performed at Main Lab DEPARTMENT OF PATHOLOGY, [address] [place] [address] John Herr M.D. Director [facility] # [id number] 67 Because ethnic data is not always readily available, this report includes an eGFR for both -Americans and non- Americans. The National Kidney Disease Education Program (NKDEP) does not endorse the use of the MDRD equation for patients that are not between the ages of 18 and 70, are , have extremes of body size, muscle mass, or nutritional status, or are non- or non-. According to the National Kidney Foundation, irrespective of diagnosis, the stage of the disease is based on the level of kidney function: Stage Description GFR(mL/min/1.73 m(2)) 1 Kidney damage with normal or decreased GFR 90 2 Kidney damage with mild decrease in GFR 60-89 3 Moderate decrease in GFR 30-59 4 Severe decrease in GFR 15-29 5 Kidney failure <15 (or dialysis) 68 Therapeutic target for the treatment of diabetes Mellitus patients is <7% HBA1C, and in selective patients <6.0%.Please refer to [place] [employer] Diabetic care guidelines for further information. 69 Desirable <150 Borderline high 150-199 High 200-499 Very High >500 70 Desirable <200 Borderline high 200-239 High >239 71 Low <40 Desirable: 40-60 High: >60 72 Desirable: <100 mg/dL Near Optimal: 100-129 mg/dL Borderline High: 130-159 mg/dL High: 160-189 mg/dL Very High: >189 mg/dL 73 FASTING 74 Therapeutic target for the treatment of diabetes Mellitus patients is <7% HBA1C, and in selective patients <6.0%.Please refer to [place] [employer] Diabetic care guidelines for further information. 75 Because ethnic data is not always readily available, this report includes an eGFR for both -Americans and non- Americans. The National Kidney Disease Education Program (NKDEP) does not endorse the use of the MDRD equation for patients that are not between the ages of 18 and 70, are , have extremes of body size, muscle mass, or nutritional status, or are non- or non-. According to the National Kidney Foundation, irrespective of diagnosis, the stage of the disease is based on the level of kidney function: Stage Description GFR(mL/min/1.73 m(2)) 1 Kidney damage with normal or decreased GFR 90 2 Kidney damage with mild decrease in GFR 60-89 3 Moderate decrease in GFR 30-59 4 Severe decrease in GFR 15-29 5 Kidney failure <15 (or dialysis) 76 Therapeutic target for the treatment of diabetes Mellitus patients is <7% HBA1C, and in selective patients <6.0%.Please refer to [place] [employer] Diabetic care guidelines for further information. 77 Desirable <150 Borderline high 150-199 High 200-499 Very High >500 78 Desirable <200 Borderline high 200-239 High >239 79 Low <40 Desirable: 40-60 High: >60 80 Desirable <100 Near Optimal 100-129 Borderline high 130-159 High 160-189 Very High >189 81 Because ethnic data is not always readily available, this report includes an eGFR for both -Americans and non- Americans. The National Kidney Disease Education Program (NKDEP) does not endorse the use of the MDRD equation for patients that are not between the ages of 18 and 70, are , have extremes of body size, muscle mass, or nutritional status, or are non- or non-. According to the National Kidney Foundation, irrespective of diagnosis, the stage of the disease is based on the level of kidney function: Stage Description GFR(mL/min/1.73 m(2)) 1 Kidney damage with normal or decreased GFR 90 2 Kidney damage with mild decrease in GFR 60-89 3 Moderate decrease in GFR 30-59 4 Severe decrease in GFR 15-29 5 Kidney failure <15 (or dialysis) Procedures Date Code Description Status 03/27/2018 78872 EKG Tracing & Interpretation Completed 10/27/2017 74945 Arthroscopy,Knee,Meniscectomy Medial Or Lateral Completed 10/27/2017 71762 Arthroscopy,Knee,Meniscectomy Medial Or Lateral Completed 10/03/2017 91636 Inj/Aspir Major JT Or Bursa W/ US Completed 09/27/2017 45298 EKG Tracing & Interpretation Completed 09/23/2017 38247 Inject/Drain Joint/Bursa Major W/O US Completed 07/23/2016 07356 ECHO Transthoracic, Real-Time 2D With Doppler And Completed Color Flow 07/06/2016 27550 Holter Monitor Review (24 hr)dr ramsay & interp only Completed 07/05/2016 64171 ECG Monitor/Recording W/Visual Superimposition Completed Scanning 06/17/2016 68998 EKG Tracing & Interpretation Completed 02/26/2016 61164 EKG Tracing & Interpretation Completed 02/19/2016 39415 EKG, Interpretation Only Completed 11/25/2015 74535 ECHO Stress Test Incl Perf Contiuous ekg Monitoring Completed W/Phys Superv 10/24/2015 [id number] Diabetic Retinal Eye Exam Completed 10/21/2015 77419 ECHO Transthoracic, Real-Time 2D With Doppler And Completed Color Flow 10/21/2015 33059 ECHO Transthoracic, Real-Time 2D With Doppler And Completed Color Flow 09/24/2015 15457 Holter Monitor Review (24 hr)dr review & interp only Completed 09/18/2015 93449 EKG Tracing & Interpretation Completed 08/15/201525025 Inject/Drain Joint/Bursa Major W/O US Completed 02/14/2015 18135 EKG, Interpretation Only Completed 01/07/2015 90925 EKG Tracing & Interpretation Completed 11/29/2014 64570 I&D Abscess Simple Completed 04/26/2011 20299 Rad Shoulder Comp, Min. 2 Views Completed 04/26/201174324 Inject/Drain Joint/Bursa Major W/O US Completed Encounters Type Date Location Provider Dx Diagnosis Office Visit 03/27/2018 [facility] Internal Dayanara Das MD Z01.818 Encounter for other 1:00p Medicine - [place] pre[address]cedural [address] examination M16.11 Unilateral primary osteoarthritis, right hip R94.31 Abnormal electrocardiogram [ECG] [EKG] B35.1 Tinea unguium Office Visit 12/12/2017 11:30a Orthopedic Veronique Villasenor S83.241A Oth tear of [facility] M[facility]DT[facility] medial meniscus, C.M.A. current injury, r knee, init M16.11 Unilateral primary osteoarthritis, right hip M25.551 Pain in right hip Office Visit 10/10/2017 [facility] Albert Kirkland Z01.818 Encounter for other 1:20p Deisi Jarrett M.D. preprocedural [place] [address] examination S83.241A Oth tear of medial meniscus, current injury, r knee, init E11.9 Type 2 diabetes mellitus without complications Office Visit 09/27/2017 Norman Matt S. I47.1 Supraventricular 11:00a Cardiology Mary Cocrhan tachycardia R00.2 Palpitations Z01.810 Encounter for preprocedural cardiovascular examination R94.31 Abnormal electrocardiogram [ECG] [EKG] M17.11 Unilateral primary osteoarthritis, right knee Office Visit 09/23/2017 1:45p [facility] Services Veronique Villasenor M25.561 Pain in right Of C.M.A. M.D. knee M25.461 Effusion, right knee M17.11 Unilateral primary osteoarthritis, right knee S83.241A Oth tear of medial meniscus, current injury, r knee, init M25.551 Pain in right hip M16.11 Unilateral primary osteoarthritis, right hip Office Visit 01/20/2017 2:30p [facility] Internal Maria Dolores J02.9 Acute pharyngitis, Deisi Joe, HRBP unspecified [address] H60.311 Diffuse otitis externa, right ear B37.9 Candidiasis, unspecified B37.2 Candidiasis of skin and nail Office Visit 09/03/2016 10:30a Surgical Inocencio Chin Z98.84 [facility] DON FACS surgery status L98.7 Excessive and redundant skin and subcutaneous tissue Office Visit 06/17/2016 Normanelvis Harris I47.1 Supraventricular 3:40p Cardiology Mary Cochran tachycardia R00.2 Palpitations E78.4 Other hyperlipidemia Office Visit 05/17/2016 10:50a [facility] Internal Yo Patel Z00.01 Encounter for Deisi Morgan M.D.,FACP general adult [address] medical exam w abnormal findings E11.9 Type 2 diabetes mellitus without complications I47.1 Supraventricular tachycardia B35.9 Dermatophytosis, unspecified Office Visit 03/03/2016 [facility] Internal Yo Patel I47.1 Supraventricular 8:30a Deisi Morgan M.D.,FACP tachycardia [address] J02.0 Streptococcal pharyngitis L30.1 Dyshidrosis [pompholyx] Z23 Encounter for immunization Office Visit 03/03/2016 Surgical Inocencio Chin, Z98.84 Bariatric surgery 2:00p [facility] DON FACS status Office Visit 02/26/2016 [facility] Kim Contreras, I47.1 Supraventricular 10:00a Of [facility] VANGIE tachycardia Office Visit 02/20/2016 [facility] Jameson I47.1 Supraventricular 2:16p Assoc,everton Antony M.D. tachycardia Hospitalists J02.0 Streptococcal pharyngitis N17.9 Acute kidney failure, unspecified A40.0 Sepsis due to streptococcus, group A Office Visit 02/19/2016 [facility] Clarissa I47.1 Supraventricular 2:15p Assoc,everton Stover NP tachycardia Hospitalists J02.0 Streptococcal pharyngitis N17.9 Acute kidney failure, unspecified A40.0 Sepsis due to streptococcus, group A Office Visit 02/07/2016 7:00a Surgical Everton Flowers R10.84 [facility] Samano M.D. abdominal pain Z98.84 Bariatric surgery status Office Visit 01/14/2016 [facility] Internal Francisco J Kaiser, J00 Acute nasopharyngitis 2:00p Medicine - [place] HRBP [common cold] Rd Office Visit 12/03/2015 Jrodan Matt S. I47.1 Supraventricular 3:00p Cardiology akil Cochran M.D. E11.9 Type 2 diabetes mellitus without complications E78.4 Other hyperlipidemia Office Visit 11/13/2015 8:30a [facility] Internal Yo Patel E11.9 Type 2 diabetes Deisi Morgan M.D.,FACP mellitus without [address] complications Z11.4 Encounter for screening for human immunodeficiency virus Z11.3 Encntr screen for infections w sexl mode of transmiss I47.1 Supraventricular tachycardia D72.829 Elevated white blood cell count, unspecified Z23 Encounter for immunization Office Visit 09/18/2015 Jordan Gutierrez S. I47.1 Supraventricular 3:00p Cardiology Mary Cochran tachycardia E78.4 Other hyperlipidemia E66.9 Obesity, unspecified Office Visit 09/12/2015 3:45p [facility]opedic Services Veronique Villasenor, M25.561 Pain in right Of C.M.A. M.D. knee M17.11 Unilateral primary osteoarthritis, right knee M25.461 Effusion, right knee M23.321 Oth meniscus derang, post horn of medial meniscus, r knee Office Visit 08/15/2015 8:30a [facility] Services Veronique Villasenor, M25.561 Pain in right Of C.M.A. M.D. knee M17.11 Unilateral primary osteoarthritis, right knee M25.461 Effusion, right knee Office Visit 05/15/2015 10:40a [facility] Internal Lazarus Mitchell, Z98.84 [facility] - [place] M.DTiffanie surgery status Rd E11.9 Type 2 diabetes mellitus without complications I47.1 Supraventricular tachycardia E78.4 Other hyperlipidemia F32.8 Other depressive episodes E55.9 Vitamin D deficiency, unspecified L98.9 Disorder of the skin and subcutaneous tissue, unspecified E66.09 Other obesity due to excess calories L30.9 Dermatitis, unspecified Office Visit 04/09/2015 11:00a [facility] Internal Lazarus Mitchell, Z98.84 [facility] - [place] M.DTiffanie surgery status Rd E11.9 Type 2 diabetes mellitus without complications I47.1 Supraventricular tachycardia E78.4 Other hyperlipidemia F32.8 Other depressive episodes E66.09 Other obesity due to excess calories E78.5 Hyperlipidemia, unspecified F32.9 Major depressive disorder, single episode, unspecified Office Visit 01/07/2015 3:40p [facility] Internal Lazarus Z01.818 Encounter for other Deisi Mitchell M.D. preprocedural [address] examination E66.01 Morbid (severe) obesity due to excess calories E11.9 Type 2 diabetes mellitus without complications I47.1 Supraventricular tachycardia Office Visit 01/02/2015 2:20p [facility] Internal Lazarus Mitchell, E11.9 Type 2 diabetes Medicine - M.DTiffanie mellitus without [address] complications E78.5 Hyperlipidemia, unspecified F32.8 Other depressive episodes L98.9 Disorder of the skin and subcutaneous tissue, unspecified B36.9 Superficial mycosis, unspecified E66.01 Morbid (severe) obesity due to excess calories Office Visit 11/29/2014 2:00p [facility] Internal Lazarus Mitchell, 682.9 Cellulitis & Medicine - [place] M.D. Abscess Unspec Rd Site 682.2 Cellulitis & Abscess Trunk Office Visit 11/13/2014 1:00p [facility] Internal Lazarus Mitchell, 311 Depressive Medicine - [place] M.DTiffanie Disorder Not Rd Elsewhere Spec 278.01 Obesity Morbid Office Visit 10/02/2014 1:00p [facility] Internal Lazarus Mitchell, 250.00 Diabetes Mellitus Medicine - [place] M.DTiffanie W/O Compl Type II Rd Or Unspec Controlled 272.4 Hyperlipidemia Other Unspec 427.0 PSVT Paroxysmal Supraventricular Tachycardia 794.8 Liver Study Abnormal 571.8 Liver Disease Chronic Nonalcoholic Other 311 Depressive Disorder Not Elsewhere Spec 111.9 Dermatomycosis Unspec 278.01 Obesity Morbid Office Visit 06/14/2014 10:20a [facility] Internal Lazarus Mitchell, 250.00 Diabetes Mellitus Medicine - [place] M.D. W/O Compl Type II Rd Or Unspec Controlled 272.4 Hyperlipidemia Other Unspec 427.0 PSVT Paroxysmal Supraventricular Tachycardia 794.8 Liver Study Abnormal 571.8 Liver Disease Chronic Nonalcoholic Other 111.9 Dermatomycosis Unspec 278.01 Obesity Morbid Office Visit 03/15/2014 10:40a [facility] Internal Lazarus Mitchell, 250.00 Diabetes Mellitus Medicine - M.D. W/O Compl Type II [facility] Or Unspec Controlled 272.4 Hyperlipidemia Other Unspec 427.0 PSVT Paroxysmal Supraventricular Tachycardia 794.8 Liver Study Abnormal 571.8 Liver Disease Chronic Nonalcoholic Other 111.9 Dermatomycosis Unspec 278.01 Obesity Morbid 250.02 Diabetes Mellitus W/O Compl Type II Or Unspec Type Uncontrol Office Visit 02/14/2014 1:40p [facility] Internal Lazarus Peresino, 250.00 Diabetes Mellitus Medicine - M.D. W/O Compl Type II [facility] Or Unspec Controlled 272.4 Hyperlipidemia Other Unspec 427.0 PSVT Paroxysmal Supraventricular Tachycardia 111.9 Dermatomycosis Unspec 278.01 Obesity Morbid V04.81 Need For Prophylactic Vaccination & Inoculation/Influenza 782.0 Skin Sensation Disturbance Office Visit 05/25/2011 1:00p Orthopedic Nathaniel Asher 726.11 Tendinitis [facility]. Shoulder Office Visit 04/26/2011 8:45a Orthopedic Bony Mendez6.11 [facility] Shoulder Plan of Treatment Future Appointment(s):04/18/2018 8:30 am - CIELO Mena at [facility]04/18/2018 8:30 am - VANGIE Obrien at [facility]04/18/2018 8:30 am - Veronique Villasenor M.D. at [facility]04/05/2018 - Veronique Villasenor M.D.M16.11 Unilateral primary osteoarthritis, right hipFollow up:Follow up: 2 weeks after lezzmmaL08.551 Pain in right hip
--- OUTSIDE RECORDS SUMMARY | 2018-04-18 06:37 | XMS REPORT | Continuity of Care Document ---
:1970 External Reference #:[id number] Author Name Nahomy Kemi Care Team Providers Name Role Phone Yo Morgan MD Primary Care Physician Unavailable Payers Type Date Identification Numbers Payment Provider Subscriber Effective: Policy Number: [id number] [employer] Asael Villa 2017 PayID: [id number] [address] [place] [address] Effective: 2013 Policy Number: [id number] [employer] Asael Villa Expires: 2017 PayID: [id number] [address] [address] [place] [address] Effective: 2010 Policy Number: [id number] [facility] Ppo Asael Villa Expires: 2012 PayID: [id number] [address] [address] [place] [address] Advance Directives Description No Information Available Problems [...] Active Onset: 08/15/2015 Localized, primary osteoarthritis Veronique Hamilton, M.D. Active Onset: 10/06/2015 History of bariatric surgical Yo Morgan Active procedure Mary,[facility] Note: lap Saundra-en-Y 02/2015 Onset: 11/13/2015 Vitamin [...] Status Lives With Occupation 05/17/2016 Currently Working [employer] Tobacco Use Reviewed: 05/17/16 Never Smoked Cigarettes Smoking Status Reviewed: 04/12/18 Never Smoked Cigarettes ETOH Use 05/17/2016 Denies alcohol use Tobacco Use Start: Unknown Patient has never smoked Recreational Drug Use Current Drug User Smokes marijuana nightly Exercise Type/Frequency Exercises sporadically Currently Active Patient is currently sexually active Allergies, Adverse Reactions, Alerts Date Description Reaction Status Severity Comments 02/14/2014 NKDA Active 03/27/2018 Latex Active Mild Medications Medication Date Status Form Strength Qnty SIG Indications Ordering Provider Penla 03/27/ Active Solution 8% 6.600 apply one [...] every day Fe C Tab / Active Chewable 1 po qd Unknown 0000 unsure of strength Calcium With / Active Chewable 1 tablet by Unknown Magnesium 0000 mouth daily Bactrim DS 04/07/ Hx Tablets 800-160mg 6tabs take 1 by Veronique 2019 - mouth twice [place], 04/11/ a day for 3 M.D. 2018 days Percocet 10/26/ Hx Tablets 5-325mg 45tab 1-2 by mouth Veronique 2017 - s every 6 Hamilton, 12/08/ hours as M.D. 2017 needed pain Aspirin 10/26/ Hx Tablets 325mg 28tab take 1 by Veronique 2018 - s mouth twice Hamilton, 10/27/ a day for .D2017 two weeks Lovenox 10/21/ Hx Solution 30mg/0.3M 3ml inject once Veronique 2018 - L daily for 2 Hamilton, 12/08/ weeks; start .D. 2018 10/28/17. Tramadol HCL 10/03/ Hx Tablets 50mg 14tab 1 tab twice Veronique 2018 - s a day as Hamilton, 12/08/ needed for .D2017 pain Clotrimazole/Be 01/20/ Hx Cream 1-0.05% 45gm apply twice B36.9 Maria Dolores tamethasone 2017 - a day over Joe, Dipropionate 03/27/ foot as [employer] 2018 needed Ofloxacin 01/20/ Hx Solution 0.3% 5ml 4 drops in H60.311 Maria Dolores (Otic) 2016 - right ear Joe, 09/26/ twice a day [employer] 2018 Lamisil AT 05/17/ Hx Cream 1% 42gm as needed Yo Morgan, 09/26/ M.D.,FACP 2018 Acetaminophen 02/19/ Hx Tablets ER 650mg 120ta 1 tab by Other ER 2016 bs mouth q4 hrs Ordering prn pain Provider Amoxicillin 02/19/ Hx Chewtabs 250mg 46uni chew two Other 2016 - ts tablets two Ordering 03/03/ times a day Provider 2016 for 12 days Atenolol 09/17/ Hx Tablets 25mg 30tab 1 by mouth Yo 2016 s every day Amanda Morgan prn M.D.,FACP Vitamin D 05/15/ Hx Capsules [id number] 8caps 1 cap by Lazarus (Ergocalciferol 2016 - mouth per Mitchell, ) 11/12/ week x 8 M.D. 2016 weeks (not taking) Keflex 11/29/ Hx Capsules 500mg 21cap 1 by mouth 682.9 Lazarus 2015 - s three times Mitchell, 01/02/ a day M.D. 2014 Onetouch Ultra 06/27/ Hx Test 100un check blood Z01.818 Lazarus 2 2015 - Strips its sugar 1-2 Mitchell, 08/13/ times daily M.D. 2015 Glipizide ER 03/15/ Hx Tablets ER 5mg 90tab 1 tablet by Z01.818 Lazarus 2014 - 24HR s mouth every Mitchell, day M.D. 2016 No Active 02/14/ Hx Unknown Medications 2013 - 2013 Clotrimazole/Be 02/14/ Hx Cream 1-0.05% 45gm apply twice B36.9 Figueroa Casey tamethasone 2013 a day over Amanda Morgan, Dipropionate hands and Mary,FACP foot as needed Mobic 04/26/ Hx Tablets 15mg 90tab 1 tab by Nathaniel 2011 - s mouth every , 02/14/ day M.D. 2013 Atenolol / Hx Tablets 50mg 90tab 1 by mouth Lazarus 0000 - s every day Mitchell, 04/09/ M.D. 2016 Simvastatin / Hx Tablets 20mg 90tab 1 by mouth Lazarus 0000 - s every day Mitchell, 04/09/ M.D. 2016 [facility] B-12 / Hx Tablets 5000mcg 1 sublingual Unknown 0000 - Sub daily 2017 SMZ-TMP DS / Hx Tablets 800-160mg 1 tab by Unknown 0000 - mouth twice 11/29/ a day x 10 2014 days Bactrim DS / Hx Tablets 800-160mg 1 tablet by Unknown 0000 - mouth twice day 2014 Omeprazole OTC / Hx Capsules 20mg 1 by mouth Unknown 0000 - DR every day 2015 Fiber (Guar / Hx Chewtabs 1 po bid Unknown Gum) 0000 - 2015 Metformin HCL / Hx Tablets 500mg 60tab 1 tablet by Lazarus 0000 - s mouth twice Mitchell, a day Mary 2016 Calcium / Hx [...] 1 by mouth Unknown 0000 every day Vitamin D / Hx Liquid unsure of Unknown (Cholecalcifero 0000 - strength 5 l) daily 2018 Medications Administered in Office Medication Date Status Form Strength Qnty SIG Indications Ordering Provider Depomedrol Administered Injection Veronique 40MG 018 Mary Villasenor Depomedrol Administered Injection Veronique 40MG 018 Mary Villasenor Depomedrol Administered Injection Veronique 40MG 016 Mary Villasenor Depomedrol Administered Injection Nathaniel 80MG 012 Mary Asher Immunizations CPT Code Status Date Vaccine Lot # [id number] Given 03/03/2016 Influenza Virus Vaccine, Quadrivalent, Split [place]751ev [place] [id number] Given 11/13/2015 Pneumonia Vaccine [id number] Given 02/14/2014 Flu Vaccine Split Virus Preservative Free For [id number] Indiv 3Yr Older Vital Signs Date Vital Result Comment 04/12/2018 2:53pm Height 71 inches 5'11" Weight 261.00 lb with shoes Heart Rate 64 /min BP Systolic Sitting 108 mmHg Lue BP Diastolic Sitting 74 mmHg Lue BMI (Body Mass Index) 36.4 kg/m2 Ejection Fraction 55-60% 07/23/16 ECHO 04/05/2018 8:24am Height 71 inches 5'11" Weight [...] Date Facility Test Result H/L Range Note Urinalysis Profile 04/05/2018 [facility] Urine Color Licha [address] [place] [address] [phone] Urine Appearance Cloudy Urine Specific [place] 1.034 High 1.010-1.030 Urine pH 5.0 N 5-9 Urine Urobilinogen Positive Abnormal Negative Urine Ketones Trace Abnormal Negative Urine Protein Negative Negative Urine Leukocytes Trace Abnormal Negative Urine Blood Negative Negative Urine Nitrite Negative Negative Urine Bilirubin 1+ Abnormal Negative Urine Glucose Negative Negative Urine White Blood Cell 1+(6-10/hpf) Abnormal Absent Urine Red Blood Cell Trace(0-2/hpf) Absent Urine Bacteria Absent Absent Urine Squamous Epithelial Cell Present Abnormal Absent Type & Screen 04/05/2018 [facility] Patient Blood Type B Positive [address] [place], [place] [id number] [phone] Antibody Screen NEGATIVE Urine Culture And 04/05/2018 [facility] Urine Culture SEE RESULT [address] [place] [address] [phone] Inr/Protime 03/27/2018 [facility] Inr 0.98 N 0.77- [address] 1.02 [place] [address] [phone] Laboratory test 03/27/2018 [facility] Partial 29.1 seconds N 26.0- finding [address] Thrombo Time 36.3 [place] [address] PTT [phone] Order 03/27/2018 [facility] In-House EKG viewed by Dr. Das CBC Auto Diff 03/27/2018 [facility] White Blood 6.6 10^3/uL N 3.5-[address] Count 0.8 [place], [place] [id number] [phone] Red Blood Count 5.11 10^6/uL N 4.00-5.40 [...] Cells % 0.2 Basic Metabolic Panel 03/27/2018 [facility] Sodium 141 mmol/L N 135-[address] [place] [address] [phone] Potassium 4.2 mmol/L N 3.5-5.0 Chloride 109 mmol/L N 101-111 Co2 Carbon Dioxide 24 mmol/L N 22-32 Anion Gap 8 mmol/L N 2-11 Glucose 91 mg/dL N 70-100 Blood Urea Nitrogen 14 mg/dL N 6-24 Creatinine 0.78 mg/dL N 0.67-1.17 BUN/Creatinine Ratio 17.9 N 8-20 Calcium 9.5 mg/dL N 8.6-10.3 Egfr Non- 107.2 >60 Egfr 129.7 >60 2 CBC Auto Diff 11/09/2017 [facility] White Blood 7.3 10^3/uL N 3.5-10.[address] [place] [address] [phone] Red Blood Count 5.18 10^6/uL N 4.00-5.40 [...] Cells % 0.1 Comp Metabolic Panel 11/09/2017 [facility] Sodium 140 mmol/L N 135-145 [address] [place] [address] [phone] Potassium 4.4 mmol/L N 3.5-5.0 Chloride 106 [...] Egfr Non- 98.8 >60 Egfr 119.6 >60 3 Iron & Iron Binding 11/09/2017 [facility] Iron 83 g/dL N 50- 212 [address] [place] [address] [phone] Unsaturated Iron Binding 306 g/dL Total Iron Binding Capacity 389 g/dL N 250-450 Transferrin 278 mg/dL N 203-362 % Iron Saturation 21 % N 15-55 Laboratory test 11/09/2017 [facility] Ferritin 18.4 ng/mL Low 24-336 finding [address] [place] [address] [phone] Folic Acid (Folate) > 20.00 ng/mL >3.99 Vitamin B12 389 pg/mL N 180-914 4 Vitamin D Total 25(Oh) 67.2 ng/mL High 20-50 Hemoglobin A1c (Glyco HGB) 5.9 % High 4.0-5.6 5 Vitamin B1 (Whole Blood) 166 nmol/L 70-180 6 Vitamin E Level 11.6 mg/L 5.5 - 17.0 7 Laboratory test 10/27/2017 [facility] Point of Care 84 mg/dL N 70-100 [address] [place] [address] [phone] CBC Auto Diff 10/10/2017 [facility] White Blood 9.3 10^3/uL N 3.5-10.[address] [place] [address] [phone] Red Blood Count 5.43 10^6/uL High 4.00-5.40 [...] Cells % 0.1 Comp Metabolic Panel 10/10/2017 [facility] Sodium 139 mmol/L N 135-[address] [place] [address] [phone] Potassium 4.4 mmol/L N 3.5-5.0 Chloride 103 [...] Egfr Non- 101.6 >60 Egfr 122.9 >60 9 Urinalysis Profile 10/10/2017 [facility] Urine Color Yellow [address] [place] [address] [phone] Urine Appearance Cloudy Urine Specific [place] 1.020 N 1.010-1.030 Urine pH 5.0 N 5-9 Urine Urobilinogen Negative Negative Urine Ketones Negative Negative Urine Protein Negative Negative Urine Leukocytes Negative Negative Urine Blood Negative Negative * * Abnormal Negative 10 Urine Nitrite Negative Negative Urine Bilirubin Negative Negative Urine Glucose Negative Negative Laboratory test 10/10/2017 [facility] House Hemoglobin A1c 6.0 5-7 finding Urine Microalbumin 10/10/2017 [facility] Ur Microalbumin < 15.0 mg/L Random [address] (mg/L) [place] [address] [phone] Urine Creatinine 192.95 mg/dL Urine Microalbumin/Creatinine TNP ug/mg <31 11 Laboratory test 01/20/2017 [facility] Culture SEE RESULT 12 , [address] [place] [address] [phone] Laboratory test 01/20/2017 [facility] House Rapid Group A neg finding Strep Comp Metabolic 09/01/2016 [facility] Sodium 136 mmol/L N 133- [address] [place] [address] [phone] Potassium 4.1 mmol/L N 3.5-5.0 Chloride 106 [...] 118.6 N >60 Egfr 152.5 N >60 14 CBC No Diff 09/01/2016 [facility] White Blood 5.9 10^3/uL N 3.5-10.[address] [place] [address] [phone] Red Blood Count 5.03 10^6/uL N 4.0-5.4 Hemoglobin 14.2 g/dL N 14.0-18.0 Hematocrit 43 % N 42-52 Mean Corpuscular Volume 85 fL N 80-94 Mean Corpuscular Hemoglobin 28 pg N 27-31 Mean Corpuscular HGB Conc 33 g/dL N 31-36 Red Cell Distribution Width 14 % N 10.5-15 Platelet Count 221 10^3/uL N 150-450 Mean Platelet Volume 8 um3 N 7.4-10.4 Laboratory test 09/01/2016 [facility] Ferritin < 10.0 ng/mL Low 24-[address] [place] [address] [phone] Folic Acid (Folate) > 20.00 ng/mL N >3.99 Vitamin D Total 25(Oh) 23.9 ng/mL Low 30-50 Vitamin B1 (Whole Blood) 117 nmol/L N 70-180 15 Vitamin B12 Binding Capacity 1190 pg/mL N 800-2600 16 Vitamin E Level 10.0 mg/L N 5.5 - 17.0 17 Iron & Iron Binding 09/01/2016 [facility] Iron 117 g/dL N 50 -212 [address] [place] [address] [phone] Unsaturated Iron Binding 297 g/dL N Total Iron Binding Capacity 414 g/dL N 250-450 % Iron Saturation 28 % N 15-55 Urine Microalbumin 05/17/2016 [facility] Ur Microalbumin < 15.0 N Random [address] (mg/L) mg/[place] [address] [phone] Urine Creatinine 370.12 mg/dL N Urine Microalbumin/Creatinine TNP ug/mg N <31 18 Laboratory test 05/17/2016 [facility] In House Hemoglobin A1c 5.6 5-7 finding Lipid Profile 05/14/2016 [facility] Triglycerides 104 mg/dL N 19 (Trig/Chol/HDL) [address] [place] [address] [phone] Cholesterol 218 mg/dL N 20 HDL Cholesterol 45.0 mg/dL N 21 LDL Cholesterol 152 mg/dL N 22 CBC No Diff 04/15/2016 [facility] White Blood 6.3 10^3/uL N 3.5-10.[address] [place] [address] [phone] Red Blood Count 5.25 10^6/uL N 4.0-5.4 Hemoglobin 14.6 g/dL N 14.0-18.0 Hematocrit 45 % N 42-52 Mean Corpuscular Volume 85 fL N 80-94 Mean Corpuscular Hemoglobin 28 pg N 27-31 Mean Corpuscular HGB Conc 33 g/dL N 31-36 Red Cell Distribution Width 15 % N 10.5-15 Platelet Count 211 10^3/uL N 150-450 Mean Platelet Volume 8 um3 N 7.4-10.4 Inr/Protime 04/15/2016 [facility] Inr 0.93 N 0.89-1.[address] [place] [address] [phone] Basic Metabolic 04/15/2016 [facility] Sodium 138 mmol/L N 133- [address] [place] [address] [phone] Potassium 4.3 mmol/L N 3.5-5.0 Chloride 105 mmol/L N 101-111 Co2 Carbon Dioxide 28 mmol/L N 22-32 Anion Gap 5 mmol/L N 2-11 Glucose 105 mg/dL High 70-100 Blood Urea Nitrogen 15 mg/dL N 6-24 Creatinine 0.83 mg/dL N 0.67-1.17 BUN/Creatinine Ratio 18.1 N 8-20 Calcium 9.4 mg/dL N 8.6-10.3 Egfr Non- 100.6 N >60 Egfr 129.4 N >60 23 Laboratory test 03/02/2016 [facility] Ferritin 37.1 ng/mL N 24 -336 finding [address] [place] [address] [phone] Folic Acid (Folate) > 20.00 ng/mL N >3.99 Vitamin B12 1317 pg/mL High 180-914 24 Vitamin D Total 25(Oh) 33.9 ng/mL N 30-50 Vitamin B1 (Whole Blood) 132 nmol/L N 70-180 25 Vitamin E Level 10.4 mg/L N 5.5 - 17.0 26 Iron & Iron Binding 03/02/2016 [facility] Iron 122 g/dL N 50 -212 [address] [place] [address] [phone] Unsaturated Iron Binding 241 g/dL N Total Iron Binding Capacity 363 g/dL N 250-450 % Iron Saturation 34 % N 15-55 Comp Metabolic Panel 03/02/2016 [facility] Sodium 137 mmol/L N 133-145 [address] [place] [address] [phone] Potassium 4.4 mmol/L N 3.5-5.0 Chloride 102 [...] 111.4 N >60 Egfr 143.3 N >60 27 CBC Auto Diff 03/02/2016 [facility] White Blood 6.5 10^3/uL N 3.5-10.[address] [place] [address] [phone] Red Blood Count 5.05 10^6/uL N 4.0-5.4 [...] Blood Cells % 0.1 N Laboratory 02/19/2016 [facility] Lactic Acid 0.8 mmol/L N 0.5- 2.0 [address] [place] [address] [phone] Laboratory 02/19/2016 [facility] Troponin-I 0.33 ng/mL High < 0.[address] (TnI) [place] [address] [phone] Laboratory 02/19/2016 [facility] Rapid Strep POSITIVE Abnormal Negative [address] [place] [address] [phone] Rapid 02/19/2016 [facility] Influenza A NEGATIVE N Negative 31 Influenza A & [address] Molecular [place] [facility] [place] [address] [phone] Influenza B Molecular NEGATIVE N Negative Laboratory test 02/19/2016 [facility] Rapid Strep A SEE RESULT [address] [place] [address] [phone] Laboratory test 02/19/2016 [facility] Point of Care 216 mg/dL High 74-10 [address] Glucose 6 [place] [address] [phone] CBC Auto Diff 02/19/2016 [facility] White Blood 22.5 10^3/uL High 3.5-[address] Count 0.8 [place] [address] [phone] Red Blood Count 5.09 10^6/uL N 4.0-5.4 [...] % 0 N Comp Metabolic Panel 02/19/2016 [facility] Sodium 138 mmol/L N 133-[address] [place] [address] [phone] Potassium 4.0 mmol/L N 3.5-5.0 Chloride 105 [...] 66.4 N >60 Egfr 85.4 N >60 34 Laboratory test 02/19/2016 [facility] Lactic Acid 2.7 mmol/L High 0.5-2.0 [address] [place] [address] [phone] Rapid Influenza A B Antigen SEE RESULT BELOW 36 Monospot Negative N Negative 37 Troponin-I (TnI) 0.01 ng/mL N <0.04 38 Magnesium 1.8 mg/dL Low 1.9-2.7 Hemoglobin A1c (Glyco HGB) 5.5 % N Less than 6.0 39 Blood Culture SEE RESULT BELOW 40 Culture Throat SEE RESULT BELOW 41 Comp Metabolic Panel 02/07/2016 [facility] Sodium 137 mmol/L N 133-[address] [place] [address] [phone] Potassium 3.8 mmol/L N 3.5-5.0 Chloride 104 [...] 122.5 N >60 Egfr 157.6 N >60 42 Laboratory test finding 02/07/2016 [facility] Amylase 26 U/L Low 29-[address] [place] [address] [phone] Lipase 35 U/L N 11.0-82.0 C Reactive Protein 1.43 mg/L N < 5.00 43 CBC Auto Diff 02/07/2016 [facility] White Blood 8.2 10^3/uL N 3.5-10.[address] [place] [address] [phone] Red Blood Count 5.21 10^6/uL N 4.0-5.4 [...] Cells % 0.1 N Laboratory test 02/07/2016 [facility] Lactic Acid 0.7 mmol/L N 0.5-2.0 [address] [place], [place] [address] [phone] Urinalysis 02/07/2016 [facility] Urine Color Straw N Profile [address] [place], [place] [address] [phone] Urine Appearance Clear N Urine Specific [place] 1.009 Low 1.010-1.030 Urine pH 6.0 N 5-9 Urine Urobilinogen Negative N Negative Urine Ketones Negative N Negative Urine Protein Negative N Negative Urine Leukocytes Negative N Negative Urine Blood Negative N Negative Urine Nitrite Negative N Negative Urine Bilirubin Negative N Negative Urine Glucose Negative N Negative Laboratory test 01/14/2016 [facility] House Rapid Group A negitive finding Strep Laboratory test 01/14/2016 [facility] Culture Throat SEE RESULT [address] [place], [place] [address] [phone] C trachomatis Misc 01/14/2016 [facility] C trachomatis THROAT N Source Rna [address] [place] [address] [phone] Chlamydia trachomatis Rna Negative N Negative 46 N gonorrhoea Misc 01/14/2016 [facility] N. gonorrhoeae THROAT N Source Rna [address] [place] [address] [phone] Neisseria Gonorrhoeae Rna Negative N Negative 47 HIV 1/2 AB 12/19/2015 [facility] HIV 1 2 Nonreactive N Nonreactive [address] [place] [address] [phone] GC/Chlamydia 12/19/2015 [facility] Chlamydia Negative N Negative Amplified Rna [address] [place] [address] Rna [phone] Neisseria gonorrhoeae (GC) Rna Negative N Negative Laboratory 12/19/2015 [facility] Syphillis Nonreactive N Nonreactive 49 test finding [address] Igg W/[place] [address] RPR [phone] Hepatitis B 12/19/2015 [facility] Hepatitis B Reactive N Nonreactive Aga AB Titer [address] Surface AB [place], [place] [address] [phone] Hep B Surf AB Level 97.47 mIU/mL N <12 50 Laboratory 12/19/2015 [facility] Hepatitis C Nonreactive N Nonreactive test finding [address] [place] [address] [phone] CBC Auto Diff 12/19/2015 [facility] White Blood 8.3 10^3/uL N 3.5-10.[address] [place] [address] [phone] Red Blood Count 5.20 10^6/uL N 4.0-5.4 [...] Blood Cells % 0 N Laboratory test 11/13/2015 [facility] In House Hemoglobin A1c 5.3 5-7 finding Comp Metabolic Panel 05/14/2015 [facility] Sodium 136 mmol/L N 133-[address] [place] [address] [phone] Potassium 4.2 mmol/L N 3.5-5.0 Chloride 103 [...] 119.1 N >60 Egfr 153.2 N >60 51 Laboratory test 05/14/2015 [facility] Hemoglobin A1c 5.9 % N Less [address] (Glyco HGB) than 6.0 [place] [address] [phone] Urine 05/14/2015 [facility] Ur Microalbumin 12.[address] (mg/L) mg/[place] [address] [phone] Urine Creatinine 398.86 mg/dL N Urine Microalbumin/Creatinine 3.0 ug/mg N <31 Urinalysis Profile 05/14/2015 [facility] Urine Color Licha N [address] [place] [address] [phone] Urine Appearance Clear N Urine Specific [place] 1.027 N 1.010-1.030 Urine pH 5.0 N 5-9 Urine Urobilinogen Positive Abnormal Negative Urine Ketones Negative N Negative Urine Protein Negative N Negative Urine Leukocytes Negative N Negative Urine Blood Negative N Negative Urine Nitrite Negative N Negative Urine Bilirubin Negative N Negative Urine Glucose Negative N Negative Lipid Profile 05/14/2015 [facility] Triglycerides 136 mg/dL N 53 (Trig/Chol/HDL) [address] [place] [address] [phone] Cholesterol 179 mg/dL N 54 HDL Cholesterol 34.6 mg/dL N 55 LDL Cholesterol 117 mg/dL N 56 CBC Auto Diff 05/14/2015 [facility] White Blood 7.9 10^3/uL N 3.5-10.[address] [place] [address] [phone] Red Blood Count 5.45 10^6/uL High 4.0-5.4 [...] Cells % 0 N Laboratory test 05/14/2015 [facility] Vitamin D 27.0 ng/mL Low 30-[address] Total 25(Oh) [place] [address] [phone] Urinalysis 04/07/2015 [facility] Urine Color Yellow N Profile [address] [place] [address] [phone] Urine Appearance Clear N Urine Specific [place] 1.025 N 1.010-1.030 Urine pH 7.0 N 5-9 Urine Urobilinogen Negative N Negative Urine Ketones Trace Abnormal Negative Urine Protein Negative N Negative Urine Leukocytes Negative N Negative Urine Blood Negative N Negative Urine Nitrite Negative N Negative Urine Bilirubin Negative N Negative Urine Glucose Negative N Negative Comp Metabolic Panel 12/27/2014 [facility] Sodium 136 mmol/L N 133-[address] [place] [address] [phone] Potassium 4.4 mmol/L N 3.5-5.0 Chloride 102 [...] 97.1 N >60 Egfr 124.8 N >60 58 Laboratory test 12/27/2014 [facility] Hemoglobin A1c 6.4 % High Less [address] (Glyco HGB) than 6.0 [place] [address] [phone] Urine 12/27/2014 [facility] Ur Microalbumin 6.[address] Microalbumin [address] (mg/L) mg/[place] [address] [phone] Urine Creatinine 339.41 mg/dL N Urine Microalbumin/Creatinine 1.7 ug/mg N <31 Lipid Profile 12/27/2014 [facility] Triglycerides 171 mg/dL N 60 (Trig/Chol/HDL) [address] [place] [address] [phone] Cholesterol 174 mg/dL N 61 HDL Cholesterol 32.5 mg/dL N 62 LDL Cholesterol 107 mg/dL N 63 Laboratory test 11/25/2014 [facility] Wound Culture/Sensi SEE RESULT [address] [place] [address] [phone] Urinalysis 11/25/2014 [facility] Urine Color Yellow N Profile [address] [place] [address] [phone] Urine Appearance Clear N Urine Specific [place] 1.023 N 1.010-1.030 Urine pH 6.0 N 5-9 Urine Urobilinogen Negative N Negative Urine Ketones Negative N Negative Urine Protein Negative N Negative Urine Leukocytes Negative N Negative Urine Blood Negative N Negative Urine Nitrite Negative N Negative Urine Bilirubin Negative N Negative Urine Glucose Negative N Negative Laboratory test 11/25/2014 [facility] Urine Culture And SEE RESULT [address] [place] [address] [phone] Laboratory test 09/26/2014 [facility] Surgical Pathology SEE RESULT [address] [place] [address] [phone] Laboratory test 09/26/2014 [facility] Clotest SEE RESULT [address] [place] [address] [phone] Comp Metabolic 08/12/2014 [facility] Sodium 134 mmol/L N 133- [address] [place] [address] [phone] Potassium 4.4 mmol/L N 3.5-5.0 Chloride 102 [...] 106.0 N >60 Egfr 136.3 N >60 68 Laboratory test 08/12/2014 [facility] Hemoglobin A1c 7.5 % High Less [address] (Glyco HGB) than 6.0 [place] [address] [phone] Lipid Profile 08/12/2014 [facility] Triglycerides 237 N 70 (Trig/Chol/HDL) [address] mg/[place] [address] [phone] Cholesterol 169 mg/dL N 71 HDL Cholesterol 28.4 mg/dL N 72 LDL Cholesterol 93 mg/dL N 73 Laboratory test 04/18/2014 [facility] Hemoglobin A1c 6.9 % High Less 74, [address] [place] [address] [phone] Comp Metabolic 04/18/2014 [facility] Sodium 136 N 133-145 Panel 101 mmol/[place] [address] [phone] Potassium 4.1 mmol/L N 3.5-5.0 Chloride 104 [...] 89.1 N >60 Egfr 114.6 N >60 76 Urinalysis Profile 03/08/2014 [facility] Urine Color Yellow N [address] [place] [address] [phone] Urine Appearance Clear N Urine Specific [place] 1.031 High 1.010-1.030 Urine pH 5.0 N 5-9 Urine Urobilinogen Negative N Negative Urine Ketones Negative N Negative Urine Protein Negative N Negative Urine Leukocytes Negative N Negative Urine Blood Negative N Negative Urine Nitrite Negative N Negative Urine Bilirubin Negative N Negative Urine Glucose Negative N Negative Laboratory test 03/08/2014 [facility] TSH (Thyroid 2.20 N 0.34 -5.60 finding 101 [facility] Stimulating Horm) IU/[place] [address] [phone] Lipid Profile 03/08/2014 [facility] Triglycerides 241 mg/dL N 77 (Trig/Chol/HDL) [address] [place] [address] [phone] Cholesterol 201 mg/dL N 78 HDL Cholesterol 38.6 mg/dL N 79 LDL Cholesterol 114 mg/dL N 80 CBC Auto Diff 03/08/2014 [facility] White Blood 8.0 10^3/uL N 4.8-10.[address] [place] [address] [phone] Red Blood Count 5.19 10^6/uL N 4.0-5.4 [...] Cells % 0 N Comp Metabolic Panel 03/08/2014 [facility] Sodium 136 mmol/L N 133-[address] [place] [address] [phone] Potassium 3.9 mmol/L N 3.5-5.0 Chloride 102 [...] N >60 Egfr 144.6 N >60 81 Urine Microalbumin 03/08/2014 [facility] Ur Microalbumin 22.0 mg /L N Random [address] (mg/L) [place] [address] [phone] Urine Creatinine 280.58 mg/dL N Urine Microalbumin/Creatinine 7.8 N Less Than 31 Laboratory test 03/08/2014 [facility] Hemoglobin A1c 7.6 % High Less than [address] [place] [address] [phone] 1 SEE RESULT BELOW Name: ENEDINA PUENTES : [address]: Veronique Villasenor MD Acct: [id number] Unit: [id number] AGE: 47 Location: [facility] Re04/05/18 SEX: M Status: REG REF SPEC: [id number] CLAUDIA: 04/05/18-[address]: Veronique Villasenor MD REQ: [id number] RECD: 04/05/181202 STATUS: COMP _ SOURCE: URINE SPDESC: ORDERED: Urine Culture QUERIES: Urine Source: Clean Catch Procedure Result Reported Site Urine Culture Final 04/06/18- 1330 ML Organism 1 STREPTOCOCCUS MITIS/ORALIS Silex Count 25-50,000 (Moderate) CFU/ML STREPTOCOCCUS MITIS/ORALIS;SIGNIFICANCE QUESTIONED. NO FURTHER WORKUP UNLESS INDICATED. * ML - Main Lab . END OF REPORT DEPARTMENT OF PATHOLOGY, [address] [place] [address] John Herr M.D. Director [facility] # [id number] 2 Because ethnic data is not always [...] 5 Kidney failure <15 (or dialysis) 3 Because ethnic data is not always readily [...] 15-29 5 Kidney failure <15 (or dialysis) 4 Normal Range 180 to 914 Indeterminate Range 145 to 180 Deficient Range <145 5 Therapeutic target for the treatment of diabetes mellitus patients is <7% HBA1C, and in selective patients <6.0%. Please refer to [place] [employer] diabetic care guidelines for further information. 6 ADDITIONAL INFORMATION This test was developed and its performance characteristics determined by [facility] in a manner consistent with CLIA requirements. This test has not been cleared or approved by the U.S. Food and Drug Administration. Test Performed by: [facility] - [address] [address] 7 ADDITIONAL INFORMATION This test was developed and its performance characteristics determined by [facility] in a manner consistent with CLIA requirements. This test has not been cleared or approved by the U.S. Food and Drug Administration. Test Performed by: [facility] [address] [place] [address] 8 Professional Athletes Coach: [id number] 9 Because ethnic data is not always readily [...] 15-29 5 Kidney failure <15 (or dialysis) 10 *Ascorbic acid is present which may interfere with detection of blood. 11 Unable to calculate due to low microalbumin 12 [id number] 13 SEE RESULT BELOW Name: ENEDINA PUENTES : [address]: Maria Dolores Joe NP Acct: [id number] Unit: [id number] AGE: 46 Location: [facility] Re01/20/17 SEX: M Status: REG REF SPEC: [id number] CLAUDIA: 01/20/17 TOI PEARCE: Maria Dolores Joe NP REQ: [id number] RECD: 01/20/17 STATUS: COMP _ SOURCE: THROAT SPDESC: ORDERED: Throat Culture COMMENTS: [id number] Procedure Result Reported Site Throat Culture Final 01/22/17- 1113 ML Organism 1 NORMAL MARTHA Quantity 3+ Throat cultures are clinically indicated to detect the presence of group A strep, arcanobacterium and yeast. In certain cases, predominating organisms will be reported. * ML - MAIN LAB ([facility]) . END OF REPORT * ML=Testing performed at Main Lab DEPARTMENT OF PATHOLOGY, [address] [place] [address] John Herr M.D. Director [facility] # [id number] 14 Because ethnic data is not always readily [...] 15-29 5 Kidney failure <15 (or dialysis) 15 ADDITIONAL INFORMATION This test was developed and its performance characteristics determined by [facility] in a manner consistent with CLIA requirements. This test has not been cleared or approved by the U.S. Food and Drug Administration. Test Performed by: [facility] [place] [address] 16 INTERPRETIVE INFORMATION: Vitamin B12 Binding Capacity This assay measures the unsaturated binding capacity of serum for Vitamin B12. Performed by [facility], [address] [place] [id number] [email or web address], Valeriy Lau MD - Lab. Director Test Performed by: [facility] [address] [place] [address] 17 ADDITIONAL INFORMATION This test was developed and its performance characteristics determined by [facility] in a manner consistent with CLIA requirements. This test has not been cleared or approved by the U.S. Food and Drug Administration. Test Performed by: [facility] - [address] [address] 18 Unable to calculate due to low microalbumin 19 Desirable <150 Borderline high 150-199 High 200-499 Very High >500 20 Desirable <200 Borderline high 200-239 High >239 21 Low <40 Desirable: 40-60 High: >60 22 Desirable: <100 mg/dL Near Optimal: 100-129 mg/dL Borderline High: 130-159 mg/dL High: 160-189 mg/dL Very High: >189 mg/dL 23 Because ethnic data is not always readily [...] 15-29 5 Kidney failure <15 (or dialysis) 24 Normal Range 180 to 914 Indeterminate Range 145 to 180 Deficient Range <145 25 ADDITIONAL INFORMATION This test was developed and its performance characteristics determined by [facility] in a manner consistent with CLIA requirements. This test has not been cleared or approved by the U.S. Food and Drug Administration. Test Performed by: [facility] [place] [address] Training Program Manager: Faheem Peralta II, M.D., Ph.D. 26 ADDITIONAL INFORMATION This test was developed and its performance characteristics determined by [facility] in a manner consistent with CLIA requirements. This test has not been cleared or approved by the U.S. Food and Drug Administration. Test Performed by: [facility] [place] [address] Training Program Manager: Faheem Peralta II, M.D., Ph.D. 27 Because ethnic data is not always readily [...] 15-29 5 Kidney failure <15 (or dialysis) 28 [facility] Severe Sepsis and Septic Shock Management Bundle Measure requires all lactic acids initially measuring >2.0 mmol/L be repeated. 29 Result TnIDx:0.33 Called to [id number] at: 15:22:34 by:[id number] Read back by: [id number] NOTE: Critical Troponin is now >0.03 ng/mL. 99th percentile=0.04 ng/mL Troponin results at [facility] and [facility] are not interchangeable. 30 Professional Athletes Coach: [id number] RHONDA DE 31 Professional Athletes Coach: [id number] DE 32 SEE RESULT BELOW Name: ENEDINA PUENTES : [address]: Demetris Noland MD Acct: [id number] Unit: [id number] AGE: 45 Location: ED Re02/19/16 SEX: M Status: REG ER SPEC: [id number] CLAUDIA: 02/19/16 [facility] DR: Demetris Noland MD REQ: [id number] RECD: 02/19/16 STATUS: ADELIA ISRAEL DR: Yo Morgan MD _ SOURCE: THROAT SPDESC: ORDERED: Strep A Request COMMENTS: Procedure Result Reported Site Rapid Strep A Request Final 02/19/16- 1041 ML Specimen received for Rapid Strep A Molecular testing * ML - MAIN LAB ([facility]) . END OF REPORT * ML=Testing performed at Main Lab DEPARTMENT OF PATHOLOGY, [address] [place] [address] John Herr M.D. Director [facility] # [id number] 33 Professional Athletes Coach: [id number] DE 34 Because ethnic data is not always readily [...] 15-29 5 Kidney failure <15 (or dialysis) 35 Critical Result LACT:2.7 Called to [facility] at: 09:38:56 by:[id number] Read back by:[email or web address] Severe Sepsis and Septic Shock Management Bundle Measure requires all lactic acids initially measuring >2.0 mmol/L be repeated. 36 SEE RESULT BELOW Name: ENEDINA PUENTES : [address]: Demetris Noland MD Acct: [id number] Unit: [id number] AGE: 45 Location: ED Re02/19/16 SEX: M Status: REG ER SPEC: [id number] CLAUDIA: 02/19/[address]: Demetris Noland MD REQ: [id number] RECD: 02/19/16 STATUS: ADELIA ROBLES DR: Yo Morgan MD _ SOURCE: NASAL SPDESC: ORDERED: Flu A B Request Procedure Result Reported Site Rapid Influenza A B Request Final 02/19/16949 ML Specimen received for Influenza A/B Molecular testing * ML - MAIN LAB ([facility]) . END OF REPORT * ML=Testing performed at Main Lab DEPARTMENT OF PATHOLOGY, [address] [place] [address] John Herr M.D. Director [facility] # [id number] 37 Would you like an EBV if Monospot is Negative?: N 38 NOTE: Critical Troponin is now >0.03 ng/mL. 99th percentile=0.04 ng/mL Troponin results at [facility] and [facility] are not interchangeable. 39 Therapeutic target for the treatment of diabetes Mellitus patients is <7% HBA1C, and in selective patients <6.0%.Please refer to [place] [employer] Diabetic care guidelines for further information. 40 SEE RESULT BELOW Name: JEWELLENEDINA Cronin : [address]: Jameson Antony MD Acct: [id number] Unit: [id number] AGE: 45 Location: [place] [address] Re02/19/16 Dis: 02/20/16 SEX: M Status: DIS Saw SPEC: [id number] CLAUDIA: 02/20/[address]: Demetris Noland MD REQ: [id number] RECD: 02/20/16 STATUS: ADELIA ISRAEL DR: Yo Morgan MD _ SOURCE: BLOOD,VENO SPDESC: ORDERED: Blood Cult Procedure Result Reported Site Aerobic Culture Bottle Final 02/25/16- 0546 ML No Growth Day 5 Anaerobic Culture Bottle Final 02/25/16- 0546 ML No Growth Day 5 * ML - [facility] ([facility]) . END OF REPORT * ML=Testing performed at Main Lab DEPARTMENT OF PATHOLOGY, [address] [place] [address] John Herr M.D. Director [facility] # [id number] 41 SEE RESULT BELOW Name: ENEDINA PUENTES : [address]: Jameson Antony MD Acct: [id number] Unit: [id number] AGE: 45 Location: [place] [address] Re02/19/16 SEX: M Status: ADM Saw SPEC: [id number] CLAUDIA: 02/19/16 [facility] DR: Demetris Noland MD REQ: [id number] RECD: 02/19/16 STATUS: ADELIA ISRAEL DR: Yo Morgan MD _ SOURCE: THROAT SPDESC: ORDERED: Throat Culture Procedure Result Reported Site Throat Culture Final 02/20/16- 1244 ML Organism 1 STREP GRP A BY BACITRACIN DISC Quantity 3+ Throat cultures are clinically indicated to detect the presence of group A strep, arcanobacterium and yeast. In certain cases, predominating organisms will be reported. * ML - MAIN LAB ([facility]) . END OF REPORT * ML=Testing performed at Main Lab DEPARTMENT OF PATHOLOGY, [address] [place] [address] John Herr M.D. Director [facility] # [id number] 42 Because ethnic data is not always readily [...] 15-29 5 Kidney failure <15 (or dialysis) 43 Acute inflammation: >10.00 44 [facility] Severe Sepsis and Septic Shock Management Bundle Measure requires all lactic acids initially measuring >2.0 mmol/L be repeated. 45 SEE RESULT BELOW Name: LEONARDMUSAENEDINA : [address]: Francisco J Kaiser NP Acct: [id number] Unit: [id number] AGE: 45 Location: [facility] Re01/14/16 SEX: M Status: REG REF SPEC: [id number] CLAUDIA: 01/14/16-[address]: Francisco J Kaiser GROUP THERAPY COUNSELOR REQ: [id number] RECD: 01/14/16 STATUS: COMP _ SOURCE: THROAT SPDESC: ORDERED: Throat Culture COMMENTS: [id number] Procedure Result Reported Site Throat Culture Final 01/16/1658 ML Organism 1 NORMAL MARTHA Quantity 2+ Throat cultures are clinically indicated to detect the presence of group A strep, arcanobacterium and yeast. In certain cases, predominating organisms will be reported. * ML - MAIN LAB ([facility]) . END OF REPORT * ML=Testing performed at Main Lab DEPARTMENT OF PATHOLOGY, [address] [place] [address] John Herr M.D. Director [facility] # [id number] 46 ADDITIONAL INFORMATION This report is intended for use in clinical monitoring and management of patients. It is not intended for use in medical-legal applications. Test Performed by: [facility] - [address] [address] Training Program Manager: Faheem Peralta II, M.D., Ph.D. 47 ADDITIONAL INFORMATION This report is intended for use in clinical monitoring and management of patients. It is not intended for use in medical-legal applications. Test Performed by: [facility] - [address] [address] Training Program Manager: Faheem Peralta II, M.D., Ph.D. 48 It is recognized that currently available assays [...] 95% confidence interval of 99.78 to 99.96%. 49 Warning: A positive result is not useful for establishing a diagnosis of syphilis. In most situations, such a result may reflect a prior treated infection; a negative result can exclude a diagnosis of syphilis except for incubating or early primary disease. 50 This assay does not differentiate between reactivity due to a vaccine-induced immune response or an immune response induced by infection with HBV. 51 Because ethnic data is not always readily [...] 15-29 5 Kidney failure <15 (or dialysis) 52 Therapeutic target for the treatment of diabetes Mellitus patients is <7% HBA1C, and in selective patients <6.0%.Please refer to [place] Diabetes [employer] Diabetic care guidelines for further information. 53 Desirable <150 Borderline high 150-199 High 200-499 Very High >500 54 Desirable <200 Borderline high 200-239 High >239 55 Low <40 Desirable: 40-60 High: >60 56 Desirable: <100 mg/dL Near Optimal: 100-129 mg/dL Borderline High: 130-159 mg/dL High: 160-189 mg/dL Very High: >189 mg/dL 57 FASTING 58 Because ethnic data is not always readily [...] 15-29 5 Kidney failure <15 (or dialysis) 59 Therapeutic target for the treatment of diabetes Mellitus patients is <7% HBA1C, and in selective patients <6.0%.Please refer to [place] [employer] Diabetic care guidelines for further information. 60 Desirable <150 Borderline high 150-199 High 200-499 Very High >500 61 Desirable <200 Borderline high 200-239 High >239 62 Low <40 Desirable: 40-60 High: >60 63 Desirable: <100 mg/dL Near Optimal: 100-129 mg/dL Borderline High: 130-159 mg/dL High: 160-189 mg/dL Very High: >189 mg/dL 64 SEE RESULT BELOW Name: ENEDINA PUENTES : [address]: Esteban Stacy MD Acct: [id number] Unit: [id number] AGE: 43 Location: ED Re11/25/14 SEX: M Status: DEP ER SPEC: [id number] CLAUDIA: 11/25/14-[address]: Eloise VENCES REQ: [id number] RECD: 11/25/14 STATUS: ADELIA ISRAEL DR: Esteban [...] performed at Main Lab DEPARTMENT OF PATHOLOGY, [address] [place] [address] John Herr M.D. Director [facility] # [id number] Patient: ENEDINA PUENTES [id number] (Continued) Specimen: [id number] Collected: 11/25/14-1509 Received: 11/25/14 (Continued) Procedure Result Verified Site Wound/Misc Culture Final (continued) 11/27/14- 1123 1. STAPHYLOCOCCUS AUREUS (continued) M.I.C. RX --------- ------ Imipenem-Deduced S * Ampicillin/Sulbactam-Deduced S Cefazolin-Deduced S * These antibiotics are not available in the [facility] Formulary Contact the Microbiology Department for any additional antibiotic reporting. * ML - [facility] ([facility]) . END OF REPORT * ML=Testing performed at Main Lab DEPARTMENT OF PATHOLOGY, [address] [place] [address] John Herr M.D. Director [facility] # [id number] 65 SEE RESULT BELOW Name: ENEDINA PUENTES : [address]: Esteban Stacy MD Acct: [id number] Unit: [id number] AGE: 43 Location: ED Re11/25/14 SEX: M Status: DEP ER SPEC: [id number] CLAUDIA: 11/25/[address]: Capo Wyman DO REQ: [id number] RECD: 11/25/14 STATUS: ADELIA ISRAEL DR: [facility] Lazarus Mitchell MD _ SOURCE: URINE SPDESC: ORDERED: Urine Culture Procedure Result Verified Site Urine Culture Final 11/27/14- 954 ML No Growth Day 2 (<1,000 CFU/mL) * ML - MAIN LAB ([facility]) . END OF REPORT * ML=Testing performed at Main Lab DEPARTMENT OF PATHOLOGY, [address] [place] [address] John Herr M.D. Director [facility] # [id number] 66 SEE RESULT BELOW Name: ENEDINA PUENTES : [address]: Tab Drummond MD Acct: [id number] Unit: [id number] AGE: 43 Location: ENDO Re09/26/14 SEX: M Status: REG REF SPEC: [id number] CLAUDIA: 09/26/14-1309 [facility] DR: Tab Drummond MD REQ: [id number] RECD: 09/26/142923 STATUS: SIGIFREDO ISRAEL DR: Inocencio Mitchell MD [...] performed at Main Lab DEPARTMENT OF PATHOLOGY, [address] [place] [address] John Herr M.D. Director [facility] # [id number] RUN DATE: 10/01/14 [facility] LAB LIVE PAGE 2 Patient: ENEDINA PUENTES Mehrdad [id number] (Continued) GROSS DESCRIPTION (Continued) GROSS DESCRIPTION 1. [...] Signed (signature on file) John Herr MD 1110 END OF REPORT * ML=Testing performed at Main Lab DEPARTMENT OF PATHOLOGY, [address] [place] [address] John Herr M.D. Director [facility] # [id number] 67 SEE RESULT BELOW Name: ENEDINA PUENTES : [address]: Tab Drummond MD Acct: [id number] Unit: [id number] AGE: 43 Location: ENDO Re09/26/14 SEX: M Status: REG REF SPEC: [id number] CLAUDIA: 09/26/14-1248 [facility] DR: Tab Drummond MD REQ: [id number] RECD: 09/26/14 STATUS: ADELIA ISRAEL DR: Lazarus Mitchell MD _ SOURCE: [facility]INNIE ROGERS [facility]: ORDERED: Clotest Procedure Result Verified Site Clotest Final 09/27/14723 ML Clotest Negative * ML - [facility] ([facility]) . END OF REPORT * ML=Testing performed at Main Lab DEPARTMENT OF PATHOLOGY, [address] [place] [address] John Herr M.D. Director [facility] # [id number] 68 Because ethnic data is not always readily [...] 15-29 5 Kidney failure <15 (or dialysis) 69 Therapeutic target for the treatment of diabetes Mellitus patients is <7% HBA1C, and in selective patients <6.0%.Please refer to [place] [employer] Diabetic care guidelines for further information. 70 Desirable <150 Borderline high 150-199 High 200-499 Very High >500 71 Desirable <200 Borderline high 200-239 High >239 72 Low <40 Desirable: 40-60 High: >60 73 Desirable: <100 mg/dL Near Optimal: 100-129 mg/dL Borderline High: 130-159 mg/dL High: 160-189 mg/dL Very High: >189 mg/dL 74 FASTING 75 Therapeutic target for the treatment of diabetes Mellitus patients is <7% HBA1C, and in selective patients <6.0%.Please refer to [place] [employer] Diabetic care guidelines for further information. 76 Because ethnic data is not always readily [...] 15-29 5 Kidney failure <15 (or dialysis) 77 Desirable <150 Borderline high 150-199 High [...] 15-29 5 Kidney failure <15 (or dialysis) 82 Therapeutic target for the treatment of diabetes Mellitus patients is <7% HBA1C, and in selective patients <6.0%.Please refer to [place] [employer] Diabetic care guidelines for further information. Procedures Date Code Description Status 04/12/2018 93904 EKG Tracing & Interpretation Completed 03/27/2018 53486 EKG Tracing & Interpretation Completed 10/27/2017 14379 Arthroscopy,Knee,Meniscectomy Medial Or Lateral Completed 10/27/2017 84915 Arthroscopy,Knee,Meniscectomy Medial Or Lateral Completed 10/03/2017 32966 Inj/Aspir Major JT Or Bursa W/ US Completed 09/27/2017 41870 EKG Tracing & Interpretation Completed 09/23/2017 57712 Inject/Drain Joint/Bursa Major W/O US Completed 07/23/2016 90847 ECHO Transthoracic, Real-Time 2D With Doppler And Completed Color Flow 07/06/2016 18826 Holter Monitor Review (24 hr)dr review & interp only Completed 07/05/2016 08919 ECG Monitor/Recording W/Visual Superimposition Completed Scanning 06/17/2016 82171 EKG Tracing & Interpretation Completed 02/26/2016 79498 EKG Tracing & Interpretation Completed 02/19/2016 34775 EKG, Interpretation Only Completed 11/25/2015 16208 ECHO Stress Test Incl Perf Contiuous ekg Monitoring Completed W/Phys Superv 10/24/2015 [id number] Diabetic Retinal Eye Exam Completed 10/21/2015 65308 ECHO Transthoracic, Real-Time 2D With Doppler And Completed Color Flow 10/21/2015 95685 ECHO Transthoracic, Real-Time 2D With Doppler And Completed Color Flow 09/24/2015 09806 Holter Monitor Review (24 hr)dr ramsay & interp only Completed 09/18/2015 57318 EKG Tracing & Interpretation Completed 08/15/2015 04789 Inject/Drain Joint/Bursa Major W/O US Completed 02/14/2015 07166 EKG, Interpretation Only Completed 01/07/2015 22181 EKG Tracing & Interpretation Completed 11/29/2014 99598 I&D Abscess Simple Completed 04/26/2011 50188 Rad Shoulder Comp, Min. 2 Views Completed 04/26/201187648 Inject/Drain Joint/Bursa Major W/O US Completed Encounters Type Date Location Provider Dx Diagnosis Office Visit 03/27/2018 [facility] Albert Das MD Z01.818 Encounter for other 1:00p Medicine - [place] pre[address]ced[address] examination M16.11 Unilateral primary osteoarthritis, right hip R94.31 Abnormal electrocardiogram [ECG] [EKG] B35.1 Tinea unguium Office Visit 12/12/2017 11:30a Orthopedic Veronique Villasenor, S83.241A Oth tear of Services Lisandro Hernandez medial meniscus, C.M.A. current injury, r knee, init M16.11 Unilateral primary osteoarthritis, right hip M25.551 Pain in right hip Office Visit 10/10/2017 [facility] Albert Kirkland Z01.818 Encounter for other 1:20p Deisi Jarrett M.D. preprocedural [address] examination S83.241A Oth tear of medial meniscus, current injury, r knee, init E11.9 Type 2 diabetes mellitus without complications Office Visit 09/27/2017 [place] [facility]. I47.1 Supraventricular 11:00a Cardiology Mary Cochran tachycardia R00.2 Palpitations Z01.810 Encounter for preprocedural cardiovascular examination R94.31 Abnormal electrocardiogram [ECG] [EKG] M17.11 Unilateral primary osteoarthritis, right knee Office Visit 09/23/2017 1:45p Orthopedic Services Veronique Villasenor M25.561 Pain in right Of C.M.A. MHoward. knee M25.461 Effusion, right knee M17.11 Unilateral primary osteoarthritis, right knee S83.241A Oth tear of medial meniscus, current injury, r knee, init M25.551 Pain in right hip M16.11 Unilateral primary osteoarthritis, right hip Office Visit 01/20/2017 2:30p [facility] Internal Maria Dolores J02.9 Acute pharyngitis, Deisi Joe NP unspecified [address] H60.311 Diffuse otitis externa, right ear B37.9 Candidiasis, unspecified B37.2 Candidiasis of skin and nail Office Visit 09/03/2016 10:30a Surgical Inocencio Chin Z98.84 [facility] DON, FACS surgery status L98.7 Excessive and redundant skin and subcutaneous tissue Office Visit 06/17/2016 Jordan Harris I47.1 Supraventricular 3:40p Cardiology Mary Cochran tachycardia R00.2 Palpitations E78.4 Other hyperlipidemia Office Visit 05/17/2016 10:50a [facility] Internal Yo Patel Z00.01 Encounter for Deisi Morgan M.D.,FACP general adult [address] medical exam w abnormal findings E11.9 Type 2 diabetes mellitus without complications I47.1 Supraventricular tachycardia B35.9 Dermatophytosis, unspecified Office Visit 03/03/2016 [facility] Albert Patel I47.1 Supraventricular 8:30a Deisi Morgan M.D.,FACP tachycardia [address] J02.0 Streptococcal pharyngitis L30.1 Dyshidrosis [pompholyx] Z23 Encounter for immunization Office Visit 03/03/2016 Surgical Inocencio Chin Z98.84 Bariatric surgery 2:00p [facility] DON, FACS status Office Visit 02/26/2016 [facility] Kim Contreras I47.1 Supraventricular 10:00a Of Jan VENCES tachycardia Office Visit 02/20/2016 [facility] Jameson I47.1 Supraventricular 2:16p Assoc,everton Antony M.D. tachycardia Hospitalists J02.0 Streptococcal pharyngitis N17.9 Acute kidney failure, unspecified A40.0 Sepsis due to streptococcus, group A [facility] 2:15p Assoc,pc Ck, GROUP THERAPY COUNSELOR tachycardia Hospitalists J02.0 Streptococcal pharyngitis N17.9 Acute kidney failure, unspecified A40.0 Sepsis due to streptococcus, group A Office Visit 02/07/2016 7:00a Surgical Everton Flowers R10.84 [facility]ized [facility] Samano M.D. abdominal pain Z98.84 Bariatric surgery status Office Visit 01/14/2016 [facility] Internal Francisco J Kaiser, J00 Acute nasopharyngitis 2:00p Medicine - [place] GROUP THERAPY COUNSELOR [common cold] Rd Office Visit 12/03/2015 [place] Garserjio Harris I47.1 Supraventricular 3:00p Cardiology akil Cochran M.D. E11.9 Type 2 diabetes mellitus without complications E78.4 Other hyperlipidemia Office Visit 11/13/2015 8:30a [facility] Internal Yo Patel E11.9 Type 2 diabetes Deisi Morgan M.D.,FACP mellitus without [address] complications Z11.4 Encounter for screening for human immunodeficiency virus Z11.3 Encntr screen for infections w sexl mode of transmiss I47.1 Supraventricular tachycardia D72.829 Elevated white blood cell count, unspecified Z23 Encounter for immunization Office Visit 09/18/2015 [place] Matt S. I47.1 Supraventricular 3:00p Cardiology Mary Cochran [...] Effusion, right knee Office Visit 05/15/2015 10:40a [facility] Internal Lazarus Mitchell, Z98.84 Bariatric Medicine - [place] M.Amanda surgery status Rd E11.9 Type 2 diabetes mellitus without complications I47.1 Supraventricular tachycardia E78.4 Other hyperlipidemia F32.8 Other depressive episodes E55.9 Vitamin D deficiency, unspecified L98.9 Disorder of the skin and subcutaneous tissue, unspecified E66.09 Other obesity due to excess calories L30.9 Dermatitis, unspecified Office Visit 04/09/2015 11:00a [facility] Internal Lazarus Mitchell, Z98.84 Bariatric Medicine - [place] M.DTiffanie surgery status Rd E11.9 Type 2 diabetes mellitus without complications I47.1 Supraventricular tachycardia E78.4 Other hyperlipidemia F32.8 Other depressive episodes E66.09 Other obesity due to excess calories E78.5 Hyperlipidemia, unspecified F32.9 Major depressive disorder, single episode, unspecified Office Visit 01/07/2015 3:40p [facility] Internal Lazarus Z01.818 Encounter for other Medicine Leora Mitchell M.D. 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 Abscess Unspec Rd Site 682.2 Cellulitis & Abscess Trunk Office Visit 11/13/2014 1:00p [facility] Internal Lazarus Mitchell, 311 Depressive Medicine - [place] M.DTiffanie Disorder Not Rd Elsewhere Spec 278.01 Obesity Morbid Office Visit 10/02/2014 1:00p [facility] Internal Lazarus Mitchell, 250.00 Diabetes Mellitus Medicine - [place] M.D. W/O Compl Type II Rd Or Unspec Controlled 272.4 Hyperlipidemia Other Unspec 427.0 PSVT Paroxysmal Supraventricular Tachycardia 794.8 Liver Study Abnormal 571.8 Liver Disease Chronic Nonalcoholic Other 311 Depressive Disorder Not Elsewhere Spec 111.9 Dermatomycosis Unspec 278.01 Obesity Morbid Office Visit 06/14/2014 10:20a [facility] Internal Lazarus Mitchell, 250.00 Diabetes Mellitus Medicine - [place] M.D. W/O Compl Type II Rd Or Unspec Controlled 272.4 Hyperlipidemia Other Unspec 427.0 PSVT Paroxysmal Supraventricular Tachycardia 794.8 Liver Study Abnormal 571.8 Liver Disease Chronic Nonalcoholic Other 111.9 Dermatomycosis Unspec 278.01 Obesity Morbid Office Visit 03/15/2014 10:40a [facility] Internal Lazarus Mitchell, 250.00 Diabetes Mellitus Medicine - M.D. W/O Compl Type II [place] Or Unspec Controlled 272.4 Hyperlipidemia Other Unspec 427.0 PSVT Paroxysmal Supraventricular Tachycardia 794.8 Liver Study Abnormal 571.8 Liver Disease Chronic Nonalcoholic Other 111.9 Dermatomycosis Unspec 278.01 Obesity Morbid 250.02 Diabetes Mellitus W/O Compl Type II Or Unspec Type Uncontrol Office Visit 02/14/2014 1:40p [facility] Internal Lazarus Mitchell, 250.00 Diabetes Mellitus Medicine - M.D. W/O Compl Type II [place] Or Unspec Controlled 272.4 Hyperlipidemia Other Unspec 427.0 PSVT Paroxysmal Supraventricular Tachycardia 111.9 Dermatomycosis Unspec 278.01 Obesity Morbid V04.81 Need For Prophylactic Vaccination & Inoculation/Influenza 782.0 Skin Sensation Disturbance Office Visit 05/25/2011 1:00p Orthopedic Nathaniel Asher 726.11 [facility] Shoulder Office Visit 04/26/2011 8:45a Orthopedic Bony Mendez6.11 Tendinitis Services Lisandro Hernandez Calcifying C.M.ATiffanie Shoulder Plan of Treatment Future Appointment(s):05/01/2018 2:15 pm - Veronique Villasenor M.D. at [facility]04/18/2018 8:30 am - CIELO Mena at [facility]04/18/2018 8:30 am - VANGIE Obrien at [facility]04/18/2018 8:30 am - Veronique Villasenor M.D. at [facility]04/12/2018 - Matt Cochran M.D.Z01.818 Encounter for other preprocedural cncgwalkbxrR80.1 Supraventricular tachycardiaFollow up:one yr ov
--- OUTSIDE RECORDS SUMMARY | 2018-04-18 06:38 | XMS REPORT | Continuity of Care Document ---
:1970 External Reference #:[id number] Author Name Sanam Watts Care Team Providers Name Role Phone Yo Morgan MD Primary Care Physician Unavailable Payers Type Date Identification Numbers Payment Provider Subscriber Effective: Policy Number: [id number] [employer] Asael Villa 2017 PayID: [id number] [address] [place] [address] Effective: 2013 Policy Number: [id number] [employer] Asael Villa Expires: 2017 PayID: [id number] [address] [address] [place] [address] Effective: 2010 Policy Number: [id number] [facility] Ppo Asael Villa Expires: 2012 PayID: [id number] [address] [address] [place] [address] Advance Directives Description No Information Available Problems [...] of bariatric surgical Yo Morgan Active procedure Mary,[facility] Note: lap Saundra-en-Y 02/2015 Onset: 11/13/2015 Vitamin [...] Status Lives With Occupation 05/17/2016 Currently Working [employer] Tobacco Use Reviewed: 05/17/16 Never Smoked Cigarettes Smoking Status Reviewed: 03/27/18 Never Smoked Cigarettes ETOH Use 05/17/2016 Denies [...] Form Strength Qnty SIG Indications Ordering Provider Clobetasol 03/03/ Active Cream 0.05% 30gm apply [...] twice Hamilton, 10/27/ a day for M.D. 2017 two weeks Lovenox 10/21/ Hx Solution 30mg/0.3M 3ml inject once Veronique 2017 - L daily for 2 Hamilton, 12/08/ weeks; start .D. 201710/28/17. Tramadol HCL 10/03/ Hx Tablets 50mg 14tab 1 tab twice Veronique 2017 - s a day as Hamilton, 12/08/ needed for .D2017 pain Clotrimazole/Be 01/20/ Hx Cream 1-0.05% 45gm apply twice B36.9 Maria Dolores tamethasone 2017 - a day over Joe, Dipropionate 03/27/ foot as [employer] 2018 needed Ofloxacin 01/20/ Hx Solution 0.3% 5ml 4 drops in H60.311 Maria Dolores (Otic) 2016 - right ear Joe, 09/26/ twice a day [employer] 2018 Lamisil AT 05/17/ Hx Cream 1% 42gm as needed Yo 2017 Leora Morgan, 09/26/ Mary,FACP 2018 Acetaminophen 02/19/ Hx Tablets ER 650mg [...] prn M.D.,FACP Vitamin D 05/15/ Hx Capsules [id number] 8caps 1 cap by Lazarus (Ergocalciferol 2016 - mouth per Mitchell, ) 11/12/ week x 8 M.D. 2016 weeks (not taking) Keflex 11/29/ Hx Capsules 500mg 21cap 1 by mouth 682.9 Lazarus 2015 - s three times Micthell, 01/02/ a day M.D. 2014 Onetouch Ultra 06/27/ Hx Test 100un check blood Z01.818 Lazarus 2 2015 - Strips its sugar 1-2 Mitchell, 08/13/ times daily M.D. 2016 Glipizide ER 03/15/ Hx Tablets ER 5mg 90tab 1 tablet by Z01.818 Lazarus 2014 - 24HR s mouth every Mitchell, day M.D. 2015 No Active Unknown Medications 2013 - 2013 Clotrimazole/Be 02/14/ [...] mouth twice Mitchell, 04/09/ a day Mary 2015 Calcium / Hx Liquid 2 Unknown 0000 - tablespoons 2016 Ferrous Sulfate / Hx Liquid daily Unknown - 2016 Omeprazole / Hx 1 tablet [...] CPT Code Status Date Vaccine Lot # [id number] Given 03/03/2016 Influenza Virus Vaccine, Quadrivalent, Split tt086ly Virus, [place] Use [address] Given 11/13/2015 Pneumonia Vaccine [id number] Given 02/14/2014 Flu Vaccine Split Virus Preservative Free For [id number] Indiv 3Yr Older Vital Signs Date Vital Result Comment 03/27/2018 12:50pm Height 71 inches 5'11" Weight [...] Test Result H/L Range Note Order 03/27/2018 [facility] In-House EKG viewed by Dr. Das CBC Auto Diff 11/09/2017 [facility] White Blood 7.3 10^3/uL N 3.5-10.[address] [place] [address] [phone] Red Blood Count 5.18 10^6/uL N 4.00-5.40 [...] Cells % 0.1 Comp Metabolic Panel 11/09/2017 [facility] Sodium 140 mmol/L N 135-145 [address] [place] [address] [phone] Potassium 4.4 mmol/L N 3.5-5.0 Chloride 106 [...] Egfr Non- 98.8 >60 Egfr 119.6 >60 1 Iron & Iron Binding 11/09/2017 [facility] Iron 83 g/dL N 50- 212 [address] [place] [address] [phone] Unsaturated Iron Binding 306 g/dL Total Iron Binding Capacity 389 g/dL N 250-450 Transferrin 278 mg/dL N 203-362 % Iron Saturation 21 % N 15-55 Laboratory test 11/09/2017 [facility] Ferritin 18.4 ng/mL Low 24-336 finding [address] [place] [address] [phone] Folic Acid (Folate) > 20.00 ng/mL >3.99 Vitamin B12 389 pg/mL N 180-914 2 Vitamin D Total 25(Oh) 67.2 ng/mL High 20-50 Hemoglobin A1c (Glyco HGB) 5.9 % High 4.0-5.6 3 Vitamin B1 (Whole Blood) 166 nmol/L 70-180 4 Vitamin E Level 11.6 mg/L 5.5 - 17.0 5 Laboratory test 10/27/2017 [facility] Point of Care 84 mg/dL N 70-100 [address] [place] [address] [phone] CBC Auto Diff 10/10/2017 [facility] White Blood 9.3 10^3/uL N 3.5-10.[address] [place] [address] [phone] Red Blood Count 5.43 10^6/uL High 4.00-5.40 [...] Cells % 0.1 Comp Metabolic Panel 10/10/2017 [facility] Sodium 139 mmol/L N 135-[address] [place] [address] [phone] Potassium 4.4 mmol/L N 3.5-5.0 Chloride 103 [...] Egfr Non- 101.6 >60 Egfr 122.9 >60 7 Urinalysis Profile 10/10/2017 [facility] Urine Color Yellow [address] [place] [address] [phone] Urine Appearance Cloudy Urine Specific [place] 1.020 N 1.010-1.030 Urine pH 5.0 N 5-9 Urine Urobilinogen Negative Negative Urine Ketones Negative Negative Urine Protein Negative Negative Urine Leukocytes Negative Negative Urine Blood Negative Negative * * Abnormal Negative 8 Urine Nitrite Negative Negative Urine Bilirubin Negative Negative Urine Glucose Negative Negative Laboratory test 10/10/2017 [facility] Hemoglobin A1c 6.0 5-7 finding Urine Microalbumin 10/10/2017 [facility] Ur Microalbumin < 15.0 mg/L Random [address] (mg/L) [place] [address] [phone] Urine Creatinine 192.95 mg/dL Urine Microalbumin/Creatinine TNP ug/mg <31 9 Laboratory test 01/20/2017 [facility] Culture SEE RESULT 10 , [address] [place] [address] [phone] Laboratory test 01/20/2017 [facility] Rapid Group A neg finding Strep Iron & Iron 09/01/2016 [facility] Iron 117 g/dL N 50-21 Binding Capacity [address] [place] [address] [phone] Unsaturated Iron Binding 297 g/dL N Total Iron Binding Capacity 414 g/dL N 250-450 % Iron Saturation 28 % N 15-55 Comp Metabolic Panel 09/01/2016 [facility] Sodium 136 mmol/L N 133-[address] [place] [address] [phone] Potassium 4.1 mmol/L N 3.5-5.0 Chloride 106 [...] 118.6 N >60 Egfr 152.5 N >60 12 CBC No Diff 09/01/2016 [facility] White Blood 5.9 10^3/uL N 3.5-10.[address] [place] [address] [phone] Red Blood Count 5.03 10^6/uL N 4.0-5.4 Hemoglobin 14.2 g/dL N 14.0-18.0 Hematocrit 43 % N 42-52 Mean Corpuscular Volume 85 fL N 80-94 Mean Corpuscular Hemoglobin 28 pg N 27-31 Mean Corpuscular HGB Conc 33 g/dL N 31-36 Red Cell Distribution Width 14 % N 10.5-15 Platelet Count 221 10^3/uL N 150-450 Mean Platelet Volume 8 um3 N 7.4-10.4 Laboratory test 09/01/2016 [facility] Ferritin < 10.0 ng/mL Low 24-[address] [place] [address] [phone] Folic Acid (Folate) > 20.00 ng/mL N >3.99 Vitamin D Total 25(Oh) 23.9 ng/mL Low 30-50 Vitamin B1 (Whole Blood) 117 nmol/L N 70-180 13 Vitamin B12 Binding Capacity 1190 pg/mL N 800-2600 14 Vitamin E Level 10.0 mg/L N 5.5 - 17.0 15 Urine Microalbumin 05/17/2016 [facility] Ur Microalbumin < 15.0 N Random [address] (mg/L) mg/[place] [address] [phone] Urine Creatinine 370.12 mg/dL N Urine Microalbumin/Creatinine TNP ug/mg N <31 16 Laboratory test 05/17/2016 [facility] In House Hemoglobin A1c 5.6 5-7 finding Lipid Profile 05/14/2016 [facility] Triglycerides 104 mg/dL N 17 (Trig/Chol/HDL) [address] [place] [address] [phone] Cholesterol 218 mg/dL N 18 HDL Cholesterol 45.0 mg/dL N 19 LDL Cholesterol 152 mg/dL N 20 CBC No Diff 04/15/2016 [facility] White Blood 6.3 10^3/uL N 3.5-10.[address] [place] [address] [phone] Red Blood Count 5.25 10^6/uL N 4.0-5.4 Hemoglobin 14.6 g/dL N 14.0-18.0 Hematocrit 45 % N 42-52 Mean Corpuscular Volume 85 fL N 80-94 Mean Corpuscular Hemoglobin 28 pg N 27-31 Mean Corpuscular HGB Conc 33 g/dL N 31-36 Red Cell Distribution Width 15 % N 10.5-15 Platelet Count 211 10^3/uL N 150-450 Mean Platelet Volume 8 um3 N 7.4-10.4 Inr/Protime 04/15/2016 [facility] Inr 0.93 N 0.89-1.[address] [place] [address] [phone] Basic Metabolic 04/15/2016 [facility] Sodium 138 mmol/L N 133- [address] [place] [address] [phone] Potassium 4.3 mmol/L N 3.5-5.0 Chloride 105 mmol/L N 101-111 Co2 Carbon Dioxide 28 mmol/L N 22-32 Anion Gap 5 mmol/L N 2-11 Glucose 105 mg/dL High 70-100 Blood Urea Nitrogen 15 mg/dL N 6-24 Creatinine 0.83 mg/dL N 0.67-1.17 BUN/Creatinine Ratio 18.1 N 8-20 Calcium 9.4 mg/dL N 8.6-10.3 Egfr Non- 100.6 N >60 Egfr 129.4 N >60 21 CBC Auto Diff 03/02/2016 [facility] White Blood 6.5 10^3/uL N 3.5-10.[address] [place] [address] [phone] Red Blood Count 5.05 10^6/uL N 4.0-5.4 [...] Nucleated Red Blood Cells % 0.1 N Comp Metabolic Panel 03/02/2016 [facility] Sodium 137 mmol/L N 133-[address] [place] [address] [phone] Potassium 4.4 mmol/L N 3.5-5.0 Chloride 102 [...] 111.4 N >60 Egfr 143.3 N >60 22 Iron & Iron Binding 03/02/2016 [facility] Iron 122 g/dL N 50 -[address] [place], [place] [address] [phone] Unsaturated Iron Binding 241 g/dL N Total Iron Binding Capacity 363 g/dL N 250-450 % Iron Saturation 34 % N 15-55 Laboratory test 03/02/2016 [facility] Ferritin 37.1 ng/mL N 24 -[address] [place] [address] [phone] Folic Acid (Folate) > 20.00 ng/mL N >3.99 Vitamin B12 1317 pg/mL High 180-914 23 Vitamin D Total 25(Oh) 33.9 ng/mL N 30-50 Vitamin B1 (Whole Blood) 132 nmol/L N 70-180 24 Vitamin E Level 10.4 mg/L N 5.5 - 17.0 25 Laboratory 02/19/2016 [facility] Rapid Strep A SEE RESULT 26 test finding [address] [place] [place], [place] [address] [phone] Laboratory 02/19/2016 [facility] Point of Care 216 mg/dL High 74-106 27 test finding [address] Glucose [place], [place] [address] [phone] Rapid 02/19/2016 [facility] Influenza A NEGATIVE N Negative 28 Influenza A & [address] [place] [address] [phone] Influenza B Molecular NEGATIVE N Negative Laboratory 02/19/2016 [facility] Rapid Strep POSITIVE Abnormal Negative 29 test finding [address] Molecular [place], [place] [address] [phone] Laboratory 02/19/2016 [facility] Troponin-I 0.33 ng/mL High < 0.04 [address] (TnI) [place] [address] [phone] Laboratory 02/19/2016 [facility] Lactic Acid 0.8 mmol/L N 0.5- 2.0 [address] [place] [address] [phone] CBC Auto Diff 02/19/2016 [facility] White Blood 22.5 High 3.5- 10.[address] Count 10^3/[place] [address] [phone] Red Blood Count 5.09 10^6/uL N 4.0-5.4 [...] % 0 N Comp Metabolic Panel 02/19/2016 [facility] Sodium 138 mmol/L N 133-[address] [place] [address] [phone] Potassium 4.0 mmol/L N 3.5-5.0 Chloride 105 [...] 66.4 N >60 Egfr 85.4 N >60 32 Laboratory test 02/19/2016 [facility] Lactic Acid 2.7 mmol/L High 0.5-2.0 [address] [place] [address] [phone] Rapid Influenza A B Antigen SEE RESULT BELOW 34 Monospot Negative N Negative 35 Troponin-I (TnI) 0.01 ng/mL N <0.04 36 Magnesium 1.8 mg/dL Low 1.9-2.7 Hemoglobin A1c (Glyco HGB) 5.5 % N Less than 6.0 37 Blood Culture SEE RESULT BELOW 38 Culture Throat SEE RESULT BELOW 39 Comp Metabolic Panel 02/07/2016 [facility] Sodium 137 mmol/L N 133-[address] [place] [address] [phone] Potassium 3.8 mmol/L N 3.5-5.0 Chloride 104 [...] 122.5 N >60 Egfr 157.6 N >60 40 Laboratory test finding 02/07/2016 [facility] Amylase 26 U/L Low 29-[address] [place] [address] [phone] Lipase 35 U/L N 11.0-82.0 C Reactive Protein 1.43 mg/L N < 5.00 41 CBC Auto Diff 02/07/2016 [facility] White Blood 8.2 10^3/uL N 3.5-10.[address] [place] [address] [phone] Red Blood Count 5.21 10^6/uL N 4.0-5.4 [...] Cells % 0.1 N Laboratory test 02/07/2016 [facility] Lactic Acid 0.7 mmol/L N 0.5-2.0 [address] [place] [address] [phone] Urinalysis 02/07/2016 [facility] Urine Color Straw N Profile [address] [place], [place] [address] [phone] Urine Appearance Clear N Urine Specific [place] 1.009 Low 1.010-1.030 Urine pH 6.0 N 5-9 Urine Urobilinogen Negative N Negative Urine Ketones Negative N Negative Urine Protein Negative N Negative Urine Leukocytes Negative N Negative Urine Blood Negative N Negative Urine Nitrite Negative N Negative Urine Bilirubin Negative N Negative Urine Glucose Negative N Negative Laboratory test 01/14/2016 [facility] Rapid Group A negitive finding Strep Laboratory test 01/14/2016 [facility] Culture Throat SEE RESULT [address] [place], [place] [address] [phone] C trachomatis Misc 01/14/2016 [facility] C trachomatis THROAT N Source Rna [address] [place] [address] [phone] Chlamydia trachomatis Rna Negative N Negative 44 N gonorrhoea Misc 01/14/2016 [facility] N. gonorrhoeae THROAT N Source Rna [address] [place] [address] [phone] Neisseria Gonorrhoeae Rna Negative N Negative 45 HIV 1/2 AB 12/19/2015 [facility] HIV 1 2 Nonreactive N Nonreactive [address] [place] [address] [phone] GC/Chlamydia 12/19/2015 [facility] Chlamydia Negative N Negative Amplified Rna [address] [place] [address] Rna [phone] Neisseria gonorrhoeae (GC) Rna Negative N Negative Laboratory 12/19/2015 [facility] Syphillis Nonreactive N Nonreactive 47 test finding [address] Igg W/[place] [address] RPR [phone] Hepatitis B 12/19/2015 [facility] Hepatitis B Reactive N Nonreactive Aga AB Titer [address] [place] [address] [phone] Hep B Surf AB Level 97.47 mIU/mL N <12 48 Laboratory 12/19/2015 [facility] Hepatitis C Nonreactive N Nonreactive test finding [address] [place] [address] [phone] CBC Auto Diff 12/19/2015 [facility] White Blood 8.3 10^3/uL N 3.5-10.[address] [place] [address] [phone] Red Blood Count 5.20 10^6/uL N 4.0-5.4 [...] Cells % 0 N Laboratory test 11/13/2015 [facility] In House Hemoglobin A1c 5.3 5-7 finding Comp Metabolic Panel 05/14/2015 [facility] Sodium 136 mmol/L N 133-[address] [place] [address] [phone] Potassium 4.2 mmol/L N 3.5-5.0 Chloride 103 [...] 119.1 N >60 Egfr 153.2 N >60 49 Laboratory test 05/14/2015 [facility] Hemoglobin A1c 5.9 % N Less [address] (Glyco HGB) than 6.0 [place] [address] [phone] Urine 05/14/2015 [facility] Ur Microalbumin 12.[address] (mg/L) mg/[place] [address] [phone] Urine Creatinine 398.86 mg/dL N Urine Microalbumin/Creatinine 3.0 ug/mg N <31 Urinalysis Profile 05/14/2015 [facility] Urine Color Licha N [address] [place] [address] [phone] Urine Appearance Clear N Urine Specific [place] 1.027 N 1.010-1.030 Urine pH 5.0 N 5-9 Urine Urobilinogen Positive Abnormal Negative Urine Ketones Negative N Negative Urine Protein Negative N Negative Urine Leukocytes Negative N Negative Urine Blood Negative N Negative Urine Nitrite Negative N Negative Urine Bilirubin Negative N Negative Urine Glucose Negative N Negative Lipid Profile 05/14/2015 [facility] Triglycerides 136 mg/dL N 51 (Trig/Chol/HDL) [address] [place] [address] [phone] Cholesterol 179 mg/dL N 52 HDL Cholesterol 34.6 mg/dL N 53 LDL Cholesterol 117 mg/dL N 54 CBC Auto Diff 05/14/2015 [facility] White Blood 7.9 10^3/uL N 3.5-10.[address] [place] [address] [phone] Red Blood Count 5.45 10^6/uL High 4.0-5.4 [...] Cells % 0 N Laboratory test 05/14/2015 [facility] Vitamin D 27.0 ng/mL Low 30-50 55 finding [address] Total 25(Oh) [place] [address] [phone] Urinalysis 04/07/2015 [facility] Urine Color Yellow N Profile [address] [place] [address] [phone] Urine Appearance Clear N Urine Specific [place] 1.025 N 1.010-1.030 Urine pH 7.0 N 5-9 Urine Urobilinogen Negative N Negative Urine Ketones Trace Abnormal Negative Urine Protein Negative N Negative Urine Leukocytes Negative N Negative Urine Blood Negative N Negative Urine Nitrite Negative N Negative Urine Bilirubin Negative N Negative Urine Glucose Negative N Negative Comp Metabolic Panel 12/27/2014 [facility] Sodium 136 mmol/L N 133-145 [address] [place] [address] [phone] Potassium 4.4 mmol/L N 3.5-5.0 Chloride 102 [...] 97.1 N >60 Egfr 124.8 N >60 56 Laboratory test 12/27/2014 [facility] Hemoglobin A1c 6.4 % High Less [address] (Glyco HGB) than 6.0 [place] [address] [phone] Urine 12/27/2014 [facility] Ur Microalbumin 6.[address] Microalbumin [address] (mg/L) mg/[place] [address] [phone] Urine Creatinine 339.41 mg/dL N Urine Microalbumin/Creatinine 1.7 ug/mg N <31 Lipid Profile 12/27/2014 [facility] Triglycerides 171 mg/dL N 58 (Trig/Chol/HDL) [address] [place] [address] [phone] Cholesterol 174 mg/dL N 59 HDL Cholesterol 32.5 mg/dL N 60 LDL Cholesterol 107 mg/dL N 61 Laboratory test 11/25/2014 [facility] Wound Culture/Sensi SEE RESULT [address] [place] [address] [phone] Urinalysis 11/25/2014 [facility] Urine Color Yellow N Profile [address] [place] [address] [phone] Urine Appearance Clear N Urine Specific [place] 1.023 N 1.010-1.030 Urine pH 6.0 N 5-9 Urine Urobilinogen Negative N Negative Urine Ketones Negative N Negative Urine Protein Negative N Negative Urine Leukocytes Negative N Negative Urine Blood Negative N Negative Urine Nitrite Negative N Negative Urine Bilirubin Negative N Negative Urine Glucose Negative N Negative Laboratory test 11/25/2014 [facility] Urine Culture And SEE RESULT [address] [place] [address] [phone] Laboratory test 09/26/2014 [facility] Surgical Pathology SEE RESULT [address] [place] [address] [phone] Laboratory test 09/26/2014 [facility] Clotest SEE RESULT [address] [place] [address] [phone] Comp Metabolic 08/12/2014 [facility] Sodium 134 mmol/L N 133- [address] [place] [address] [phone] Potassium 4.4 mmol/L N 3.5-5.0 Chloride 102 [...] 106.0 N >60 Egfr 136.3 N >60 66 Laboratory test 08/12/2014 [facility] Hemoglobin A1c 7.5 % High Less [address] (Glyco HGB) than 6.0 [place] [address] [phone] Lipid Profile 08/12/2014 [facility] Triglycerides 237 N 68 (Trig/Chol/HDL) [address] mg/[place] [address] [phone] Cholesterol 169 mg/dL N 69 HDL Cholesterol 28.4 mg/dL N 70 LDL Cholesterol 93 mg/dL N 71 Laboratory test 04/18/2014 [facility] Hemoglobin A1c 6.9 % High Less 72, [address] than 6.0 [place] [address] [phone] Comp Metabolic 04/18/2014 [facility] Sodium 136 N 133-[address] mmol/[place] [address] [phone] Potassium 4.1 mmol/L N 3.5-5.0 Chloride 104 [...] 89.1 N >60 Egfr 114.6 N >60 74 Laboratory test 03/08/2014 [facility] TSH (Thyroid 2.20 N 0.34 -5.[address] Stimulating Horm) IU/[place] [address] [phone] Lipid Profile 03/08/2014 [facility] Triglycerides 241 mg/dL N 75 (Trig/Chol/HDL) [address] [place] [address] [phone] Cholesterol 201 mg/dL N 76 HDL Cholesterol 38.6 mg/dL N 77 LDL Cholesterol 114 mg/dL N 78 CBC Auto Diff 03/08/2014 [facility] White Blood 8.0 10^3/uL N 4.8-10.[address] [place] [address] [phone] Red Blood Count 5.19 10^6/uL N 4.0-5.4 [...] Nucleated Red Blood Cells % 0 N Urinalysis Profile 03/08/2014 [facility] Urine Color Yellow N [address] [place] [address] [phone] Urine Appearance Clear N Urine Specific [place] 1.031 High 1.010-1.030 Urine pH 5.0 N 5-9 Urine Urobilinogen Negative N Negative Urine Ketones Negative N Negative Urine Protein Negative N Negative Urine Leukocytes Negative N Negative Urine Blood Negative N Negative Urine Nitrite Negative N Negative Urine Bilirubin Negative N Negative Urine Glucose Negative N Negative Comp Metabolic Panel 03/08/2014 [facility] Sodium 136 mmol/L N 133-145 [address] [place] [address] [phone] Potassium 3.9 mmol/L N 3.5-5.0 Chloride 102 [...] 112.5 N >60 Egfr 144.6 N >60 79 Urine Microalbumin 03/08/2014 [facility] Ur Microalbumin 22.0 mg /L N Random [address] (mg/L) [place] [address] [phone] Urine Creatinine 280.58 mg/dL N Urine Microalbumin/Creatinine 7.8 N Less Than 31 Laboratory test 03/08/2014 [facility] Hemoglobin A1c 7.6 % High Less than [address] 6.0 [place] [address] [phone] 1 Because ethnic data is not always [...] 5 Kidney failure <15 (or dialysis) 2 Normal Range 180 to 914 Indeterminate Range 145 to 180 Deficient Range <145 3 Therapeutic target for the treatment of diabetes mellitus patients is <7% HBA1C, and in selective patients <6.0%. Please refer to [place] [employer] diabetic care guidelines for further information. 4 ADDITIONAL INFORMATION This test was developed and its performance characteristics determined by [facility] in a manner consistent with CLIA requirements. This test has not been cleared or approved by the U.S. Food and Drug Administration. Test Performed by: [facility] - [address] [address] 5 ADDITIONAL INFORMATION This test was developed and its performance characteristics determined by [facility] in a manner consistent with CLIA requirements. This test has not been cleared or approved by the U.S. Food and Drug Administration. Test Performed by: [facility] - [address] [address] 6 Health Actuary: [id number] 7 Because ethnic data is not always readily [...] 15-29 5 Kidney failure <15 (or dialysis) 8 *Ascorbic acid is present which may interfere with detection of blood. 9 Unable to calculate due to low microalbumin 10 [id number] 11 SEE RESULT BELOW Name: ENEDINA PUENTES : [address]: Maria Dolores Joe NP Acct: [id number] Unit: [id number] AGE: 46 Location: [facility] Re01/20/17 SEX: M Status: REG REF SPEC: [id number] CLAUDIA: 01/20/[address]: Maria Dolores Joe NP REQ: [id number] RECD: 01/20/17 STATUS: COMP _ SOURCE: THROAT SPDESC: ORDERED: Throat Culture COMMENTS: [id number] Procedure Result Reported Site Throat Culture Final 01/22/17- 1113 ML Organism 1 NORMAL MARTHA Quantity 3+ Throat cultures are clinically indicated to detect the presence of group A strep, arcanobacterium and yeast. In certain cases, predominating organisms will be reported. * ML - MAIN LAB ([facility]) . END OF REPORT * ML=Testing performed at Main Lab DEPARTMENT OF PATHOLOGY, [address] [place] [address] John Herr M.D. Director [facility] # [id number] 12 Because ethnic data is not always readily [...] 15-29 5 Kidney failure <15 (or dialysis) 13 ADDITIONAL INFORMATION This test was developed and its performance characteristics determined by [facility] in a manner consistent with CLIA requirements. This test has not been cleared or approved by the U.S. Food and Drug Administration. Test Performed by: [address] [address] 14 INTERPRETIVE INFORMATION: Vitamin B12 Binding Capacity This assay measures the unsaturated binding capacity of serum for Vitamin B12. Performed by [facility], [address] [place] [address] [email or web address], Valeriy Lau MD - Lab. Director Test Performed by: [facility] [address] [place] [address] 15 ADDITIONAL INFORMATION This test was developed and its performance characteristics determined by [facility] in a manner consistent with CLIA requirements. This test has not been cleared or approved by the U.S. Food and Drug Administration. Test Performed by: [address] [address] [address] 16 Unable to calculate due to low microalbumin 17 Desirable <150 Borderline high 150-199 High 200-499 Very High >500 18 Desirable <200 Borderline high 200-239 High >239 19 Low <40 Desirable: 40-60 High: >60 20 Desirable: <100 mg/dL Near Optimal: 100-129 mg/dL Borderline High: 130-159 mg/dL High: 160-189 mg/dL Very High: >189 mg/dL 21 Because ethnic data is not always readily [...] 15-29 5 Kidney failure <15 (or dialysis) 22 Because ethnic data is not always [...] developed and its performance characteristics determined by [facility] in a manner consistent with CLIA requirements. This test has not been cleared or approved by the U.S. Food and Drug Administration. Test Performed by: [facility] - [address] [address] Kindergarten Teacher: Faheem Peralta II, M.D., Ph.D. 25 ADDITIONAL INFORMATION This test was developed and its performance characteristics determined by [facility] in a manner consistent with CLIA requirements. This test has not been cleared or approved by the U.S. Food and Drug Administration. Test Performed by: [facility] - [address] [address] Kindergarten Teacher: Faheem Peralta II, M.D., Ph.D. 26 SEE RESULT BELOW Name: ENEDINA PUENTES : [address]: Demetris Noland MD Acct: [id number] Unit: [id number] AGE: 45 Location: ED Re02/19/16 SEX: M Status: REG ER SPEC: [id number] CLAUDIA: 02/19/[address] [facility] [address]: Demetris Noland MD REQ: [id number] RECD: 02/19/16 STATUS: ADELIA ISRAEL DR: Yo Morgan MD _ SOURCE: THROAT SPDESC: ORDERED: Strep A Request COMMENTS: Procedure Result Reported Site Rapid Strep A Request Final 02/19/16- 104 ML Specimen received for Rapid Strep A Molecular testing * ML - MAIN LAB ([facility]) . END OF REPORT * ML=Testing performed at Main Lab DEPARTMENT OF PATHOLOGY, [address] [place] [address] John Herr M.D. Director [facility] # [id number] 27 Health Actuary: [id number] [place] 28 Health Actuary: [id number] [place] 29 Health Actuary: DWIGHT [place] 30 Result TnIDx:0.33 Called to [id number] at: 15:22:34 by:[id number] Read back by: [id number] NOTE: Critical Troponin is now >0.03 ng/mL. 99th percentile=0.04 ng/mL Troponin results at [facility] and [facility] are not interchangeable. 31 [facility] Severe Sepsis and Septic Shock Management Bundle Measure requires all lactic acids initially measuring >2.0 mmol/L be repeated. 32 Because ethnic data is not always readily [...] 15-29 5 Kidney failure <15 (or dialysis) 33 Critical Result LACT:2.7 Called to KFOX at: 09:38:56 by:[id number] Read back by:[email or web address] [facility] Severe Sepsis and Septic Shock Management Bundle Measure requires all lactic acids initially measuring >2.0 mmol/L be repeated. 34 SEE RESULT BELOW Name: ENEDINA PUENTES : [address]: Demetris Noland MD Acct: [id number] Unit: [id number] AGE: 45 Location: ED Re02/19/16 SEX: M Status: REG ER SPEC: [id number] CLAUDIA: 02/19/[address] [facility] [address]: Demetris Noland MD REQ: [id number] RECD: 02/19/16 STATUS: ADELIA ISRAEL DR: Yo Morgan MD _ SOURCE: NASAL SPDESC: ORDERED: Flu A B Request Procedure Result Reported Site Rapid Influenza A B Request Final 02/19/16- 0950 ML Specimen received for Influenza A/B Molecular testing * ML - MAIN LAB ([facility]) . END OF REPORT * ML=Testing performed at Main Lab DEPARTMENT OF PATHOLOGY, [address] [place] [address] John Herr M.D. Director [facility] # [id number] 35 Would you like an EBV if Monospot is Negative?: N 36 NOTE: Critical Troponin is now >0.03 ng/mL. 99th percentile=0.04 ng/mL Troponin results at [facility] and [facility] are not interchangeable. 37 Therapeutic target for the treatment of diabetes Mellitus patients is <7% HBA1C, and in selective patients <6.0%.Please refer to [place] [employer] Diabetic care guidelines for further information. 38 SEE RESULT BELOW Name: ENEDINA PUENTES : [address]: Jameson Antony MD Acct: [id number] Unit: [id number] AGE: 45 Location: [place] [address] Re02/19/16 Dis: 02/20/16 SEX: M Status: DIS Saw SPEC: [id number] CLAUDIA: 02/20/[address] [facility] [address]: Demetris Noland MD REQ: [id number] RECD: 02/20/16 STATUS: ADELIA ISRAEL DR: Yo Morgan MD _ SOURCE: BLOOD,VENO SPDESC: ORDERED: Blood Cult Procedure Result Reported Site Aerobic Culture Bottle Final 02/25/16- 46 ML No Growth Day 5 Anaerobic Culture Bottle Final 02/25/16- 46 ML No Growth Day 5 * ML - [facility] ([facility]) . END OF REPORT * ML=Testing performed at Main Lab DEPARTMENT OF PATHOLOGY, [address] [place] [address] John Herr M.D. Director [facility] # [id number] 39 SEE RESULT BELOW Name: ENEDINA PUENTES : [address]: Jameson Antony MD Acct: [id number] Unit: [id number] AGE: 45 Location: [place] [address] Re02/19/16 SEX: M Status: ADM Saw SPEC: [id number] CLAUDIA: 02/19/[address] [facility] [address]: Demetris Noland MD REQ: [id number] RECD: 02/19/16 STATUS: ADELIA ISRAEL DR: Yo [...] be reported. * ML - MAIN LAB ([facility]) . END OF REPORT * ML=Testing performed at Main Lab DEPARTMENT OF PATHOLOGY, [address] [place] [address] John Herr M.D. Director [facility] # [id number] 40 Because ethnic data is not always readily [...] 15-29 5 Kidney failure <15 (or dialysis) 41 Acute inflammation: >10.00 42 [facility] Severe Sepsis and Septic Shock Management Bundle Measure requires all lactic acids initially measuring >2.0 mmol/L be repeated. 43 SEE RESULT BELOW Name: ENEDINA PUENTES : [address]: Francisco J Kaiser NP Acct: [id number] Unit: [id number] AGE: 45 Location: [facility] Re01/14/16 SEX: M Status: REG REF SPEC: [id number] CLAUDIA: 01/14/[address]: Francisco J Kaiser NP REQ: [id number] RECD: 01/14/16 STATUS: COMP _ SOURCE: THROAT SPDESC: ORDERED: Throat Culture COMMENTS: [id number] Procedure Result Reported Site Throat Culture Final 01/16/16- 0958 ML Organism 1 NORMAL MARTHA Quantity 2+ Throat cultures are clinically indicated to detect the presence of group A strep, arcanobacterium and yeast. In certain cases, predominating organisms will be reported. * ML - MAIN LAB ([facility]) . END OF REPORT * ML=Testing performed at Main Lab DEPARTMENT OF PATHOLOGY, [address] [place] [address] John Herr M.D. Director [facility] # [id number] 44 ADDITIONAL INFORMATION This report is intended for use in clinical monitoring and management of patients. It is not intended for use in medical-legal applications. Test Performed by: [place] [address] Kindergarten Teacher: Faheem Peralta II, M.D., Ph.D. 45 ADDITIONAL INFORMATION This report is intended for use in clinical monitoring and management of patients. It is not intended for use in medical-legal applications. Test Performed by: [place] [address] Kindergarten Teacher: Faheem Peralta II, M.D., Ph.D. 46 It is recognized that currently available assays [...] 95% confidence interval of 99.78 to 99.96%. 47 Warning: A positive result is not useful for establishing a diagnosis of syphilis. In most situations, such a result may reflect a prior treated infection; a negative result can exclude a diagnosis of syphilis except for incubating or early primary disease. 48 This assay does not differentiate between reactivity due to a vaccine-induced immune response or an immune response induced by infection with HBV. 49 Because ethnic data is not always readily [...] 15-29 5 Kidney failure <15 (or dialysis) 50 Therapeutic target for the treatment of diabetes Mellitus patients is <7% HBA1C, and in selective patients <6.0%.Please refer to [place] [employer] Diabetic care guidelines for further information. 51 Desirable <150 Borderline high 150-199 High 200-499 Very High >500 52 Desirable <200 Borderline high 200-239 High >239 53 Low <40 Desirable: 40-60 High: >60 54 Desirable: <100 mg/dL Near Optimal: 100-129 mg/dL Borderline High: 130-159 mg/dL High: 160-189 mg/dL Very High: >189 mg/dL 55 FASTING 56 Because ethnic data is not always readily [...] 15-29 5 Kidney failure <15 (or dialysis) 57 Therapeutic target for the treatment of diabetes Mellitus patients is <7% HBA1C, and in selective patients <6.0%.Please refer to [employer] Diabetic care guidelines for further information. 58 Desirable <150 Borderline high 150-199 High 200-499 Very High >500 59 Desirable <200 Borderline high 200-239 High >239 60 Low <40 Desirable: 40-60 High: >60 61 Desirable: <100 mg/dL Near Optimal: 100-129 mg/dL Borderline High: 130-159 mg/dL High: 160-189 mg/dL Very High: >189 mg/dL 62 SEE RESULT BELOW Name: ENEDINA PUENTES : [address]: Esteban Stacy MD Acct: [id number] Unit: [id number] AGE: 43 Location: ED Re11/25/14 SEX: M Status: DEP ER SPEC: [id number] CLAUDIA: 11/25/14-[address]: Eloise VENCES REQ: [id number] RECD: 11/25/14 STATUS: ADELIA ISRAEL DR: Esteban [...] performed at Main Lab DEPARTMENT OF PATHOLOGY, [address] [place] [address] John Herr M.D. Director [facility] # [id number] Patient: ENEDINA PUENTES [id number] (Continued) Specimen: [id number] Collected: 11/25/14 Received: 11/25/14-1524 (Continued) Procedure Result Verified Site Wound/Misc Culture Final (continued) 11/27/14- 1123 1. STAPHYLOCOCCUS AUREUS (continued) M.I.C. RX --------- ------ Imipenem-Deduced S * Ampicillin/Sulbactam-Deduced S Cefazolin-Deduced S * These antibiotics are not available in the [facility] Formulary Contact the Microbiology Department for any additional antibiotic reporting. * ML - MAIN LAB ([facility]) . END OF REPORT * ML=Testing performed at Main Lab DEPARTMENT OF PATHOLOGY, [address] [place] [address] John Herr M.D. Director [facility] # [id number] 63 SEE RESULT BELOW Name: ENEDINA PUENTES : [address]: Esteban Stacy MD Acct: [id number] Unit: [id number] AGE: 43 Location: ED Re11/25/14 SEX: M Status: DEP ER SPEC: [id number] CLAUDIA: 11/25/[address]: Capo Wyman DO REQ: [id number] RECD: 11/25/14 STATUS: ADELIA ISRAEL DR: [facility] Lazarus Mitchell MD _ SOURCE: URINE SPDESC: ORDERED: Urine Culture Procedure Result Verified Site Urine Culture Final 11/27/14- 0955 ML No Growth Day 2 (<1,000 CFU/mL) * ML - MAIN LAB ([facility]) . END OF REPORT * ML=Testing performed at Main Lab DEPARTMENT OF PATHOLOGY, [address] [place] [address] John Herr M.D. Director [facility] # [id number] 64 SEE RESULT BELOW Name: ENEDINA PUENTES : [address]: Tab Drummond MD Acct: [id number] Unit: [id number] AGE: 43 Location: ENDO Re09/26/14 SEX: M Status: REG REF SPEC: [id number] CLAUDIA: 09/26/14-[address]: Tab Drummond MD REQ: [id number] RECD: 09/26/14-8221 STATUS: SIGIFREDO ISRAEL DR: Inocencio Mitchell MD _ ORDERED: H PYLORI IMM ST, LEVEL IV/2 FINAL DIAGNOSIS 1. Stomach, biopsies: [...] performed at Main Lab DEPARTMENT OF PATHOLOGY, [address] [place] [address] John Herr M.D. Director [facility] # [id number] RUN DATE: 10/01/14 [facility] LAB LIVE PAGE 2 Patient: JEWELLENEDINA Cronin [id number] (Continued) GROSS DESCRIPTION (Continued) GROSS DESCRIPTION 1. [...] performed at Main Lab DEPARTMENT OF PATHOLOGY, [address] [place] [address] John Herr M.D. Director CLIA # [id number] 65 SEE RESULT BELOW Name: ENEDINA PUENTES : [address]: Tab Drummond MD Acct: [id number] Unit: [id number] AGE: 43 Location: ENDO Re09/26/14 SEX: M Status: REG REF SPEC: [id number] CLAUDIA: 09/26/14-[address] [facility] [address]: Tab Drummond MD REQ: [id number] RECD: 09/26/14 STATUS: ADELIA ISRAEL DR: Lazarus Mitchell MD _ SOURCE: GAS ANTRUM SPDES: ORDERED: Clotest Procedure Result Verified Site Clotest Final 09/27/14723 ML Clotest Negative * ML - MAIN LAB ([facility]) . END OF REPORT * ML=Testing performed at Main Lab DEPARTMENT OF PATHOLOGY, [address] [place] [address] John Herr M.D. Director [facility] # [id number] 66 Because ethnic data is not always readily [...] 15-29 5 Kidney failure <15 (or dialysis) 67 Therapeutic target for the treatment of diabetes Mellitus patients is <7% HBA1C, and in selective patients <6.0%.Please refer to [place] Diabetes [employer] Diabetic care guidelines for further information. 68 Desirable <150 Borderline high 150-199 High 200-499 Very High >500 69 Desirable <200 Borderline high 200-239 High >239 70 Low <40 Desirable: 40-60 High: >60 71 Desirable: <100 mg/dL Near Optimal: 100-129 mg/dL Borderline High: 130-159 mg/dL High: 160-189 mg/dL Very High: >189 mg/dL 72 FASTING 73 Therapeutic target for the treatment of diabetes Mellitus patients is <7% HBA1C, and in selective patients <6.0%.Please refer to [place] Diabetes [employer] Diabetic care guidelines for further information. 74 Because ethnic data is not always readily [...] 15-29 5 Kidney failure <15 (or dialysis) 75 Desirable <150 Borderline high 150-199 High 200-499 Very High >500 76 Desirable <200 Borderline high 200-239 High >239 77 Low <40 Desirable: 40-60 High: >60 78 Desirable <100 Near Optimal 100-129 Borderline high 130-159 High 160-189 Very High >189 79 Because ethnic data is not always readily [...] 15-29 5 Kidney failure <15 (or dialysis) 80 Therapeutic target for the treatment of diabetes Mellitus patients is <7% HBA1C, and in selective patients <6.0%.Please refer to [place] Diabetes [employer] Diabetic care guidelines for further information. Procedures Date Code Description Status 03/27/2018 26679 EKG Tracing & Interpretation Completed 10/27/2017 57320 Arthroscopy,Knee,Meniscectomy Medial Or Lateral Completed 10/27/2017 26154 Arthroscopy,Knee,Meniscectomy Medial Or Lateral Completed 10/03/2017 96946 Inj/Aspir Major JT Or Bursa W/ US Completed 09/27/2017 16757 EKG Tracing & Interpretation Completed 09/23/2017 90462 Inject/Drain Joint/Bursa Major W/O US Completed 07/23/2016 53560 ECHO Transthoracic, Real-Time 2D With Doppler And Completed Color Flow 07/06/2016 58772 Holter Monitor Review (24 hr)dr ramsay & alfredp only Completed 07/05/2016 75010 ECG Monitor/Recording W/Visual Superimposition Completed Scanning 06/17/2016 94699 EKG Tracing & Interpretation Completed 02/26/2016 19430 EKG Tracing & Interpretation Completed 02/19/2016 88491 EKG, Interpretation Only Completed 11/25/2015 30850 ECHO Stress Test Incl Perf Contiuous ekg Monitoring Completed W/Phys Superv 10/24/2015 213671210 Diabetic Retinal Eye Exam Completed 10/21/2015 70353 ECHO Transthoracic, Real-Time 2D With Doppler And Completed Color Flow 10/21/2015 53722 ECHO Transthoracic, Real-Time 2D With Doppler And Completed Color Flow 09/24/2015 76960 Holter Monitor Review (24 hr)dr review & interp only Completed 09/18/2015 42149 EKG Tracing & Interpretation Completed 08/15/2015 71314 Inject/Drain Joint/Bursa Major W/O US Completed 02/14/2015 49683 EKG, Interpretation Only Completed 01/07/2015 87428 EKG Tracing & Interpretation Completed 11/29/2014 83975 I&D Abscess Simple Completed 04/26/2011 18436 Rad Shoulder Comp, Min. 2 Views Completed 04/26/2011 78632 Inject/Drain Joint/Bursa Major W/O US Completed Encounters Type Date Location Provider Dx Diagnosis Office Visit 12/12/2017 Orthopedic Veronique Villasenor, S83.241A Oth tear of 11:30a Services Of Anastacio Hernandez medial meniscus, current injury, r knee, init M16.11 Unilateral primary osteoarthritis, right hip M25.551 Pain in right hip Office Visit 10/10/2017 [employer] Internal Isael Z01.818 Encounter for other 1:20p Deisi Jarrett M.D. preprocedural [address] examination S83.241A Oth tear of medial meniscus, current injury, r knee, init E11.9 Type 2 diabetes mellitus without complications Office Visit 09/27/2017 Jordan Gutierrez S. I47.1 Supraventricular 11:00a Cardiology Mary Cochran tachycardia R00.2 Palpitations Z01.810 Encounter for preprocedural cardiovascular examination R94.31 Abnormal electrocardiogram [ECG] [EKG] M17.11 Unilateral primary osteoarthritis, right knee Office Visit 09/23/2017 1:45p Orthopedic Services Veronique Villasenor, M25.561 Pain in right Of C.M.A. M.D. knee M25.461 Effusion, right knee M17.11 Unilateral primary osteoarthritis, right knee S83.241A Oth tear of medial meniscus, current injury, r knee, init M25.551 Pain in right hip M16.11 Unilateral primary osteoarthritis, right hip Office Visit 01/20/2017 2:30p [facility] Internal Maria Dolores J02.9 Acute pharyngitis, Deisi Joe, TELEVISION NEWS VIDEO EDITOR unspecified [address] H60.311 Diffuse otitis externa, right ear B37.9 Candidiasis, unspecified B37.2 Candidiasis of skin and nail Office Visit 09/03/2016 10:30a Surgical Inocencio Chin Z98.84 [facility] MARYA DON surgery status L98.7 Excessive and redundant skin and subcutaneous tissue Office Visit 06/17/2016 Jordan Harris I47.1 Supraventricular 3:40p Cardiology Mary Cochran tachycardia R00.2 Palpitations E78.4 Other hyperlipidemia Office Visit 05/17/2016 10:50a [facility] Internal Yo Patel Z00.01 Encounter for Deisi Morgan M.D.,FACP general adult [address] medical exam w abnormal findings E11.9 Type 2 diabetes mellitus without complications I47.1 Supraventricular tachycardia B35.9 Dermatophytosis, unspecified Office Visit 03/03/2016 Surgical Inocencio Chin Z98.84 Bariatric surgery 2:00p Associates Of MARYA DON status Windows Software Developer Office Visit 03/03/2016 [facility] Internal Yo Patel I47.1 Supraventricular 8:30a Medicine - [place] Cathy, tachycardia Rd Mary,FACP J02.0 Streptococcal pharyngitis L30.1 Dyshidrosis [pompholyx] Z23 Encounter for immunization Office Visit 02/26/2016 [facility] Kim Contreras I47.1 Supraventricular 10:00a Of [facility] PA tachycardia Office Visit 02/20/2016 [place] Cliff Barba I47.1 Supraventricular 2:16p Assoc,everton Antony M.D. tachycardia Hospitalists J02.0 Streptococcal pharyngitis N17.9 Acute kidney failure, unspecified A40.0 Sepsis due to streptococcus, group A Office Visit 02/19/2016 [place] Cliff Clarissa I47.1 Supraventricular 2:15p Assoc,everton Stover, TELEVISION NEWS VIDEO EDITOR tachycardia Hospitalists J02.0 Streptococcal pharyngitis N17.9 Acute kidney failure, unspecified A40.0 Sepsis due to streptococcus, group A Office Visit 02/07/2016 7:00a Surgical Everton Flowers R10.84 Generalized [facility] Jan Samano M.D. abdominal pain Z98.84 Bariatric surgery status Office Visit 01/14/2016 [facility] Internal Francisco J Kaiser, J00 Acute nasopharyngitis 2:00p Medicine - [place] TELEVISION NEWS VIDEO EDITOR [common cold] Rd Office Visit 12/03/2015 Jordan Patelligiabrayan S. I47.1 Supraventricular 3:00p Cardiology akil Cochran M.D. E11.9 Type 2 diabetes mellitus without complications E78.4 Other hyperlipidemia Office Visit 11/13/2015 8:30a [facility] Internal Yo Patel E11.9 Type 2 diabetes Deisi Morgan M.D.,FACP mellitus without [address] complications Z11.4 Encounter for screening for human immunodeficiency virus Z11.3 Encntr screen for infections w sexl mode of transmiss I47.1 Supraventricular tachycardia D72.829 Elevated white blood cell count, unspecified Z23 Encounter for immunization Office Visit 09/18/2015 Jordan Garserjio S. I47.1 Supraventricular 3:00p Cardiology Mary Cochran tachycardia E78.4 Other hyperlipidemia E66.9 Obesity, unspecified Office Visit 09/12/2015 3:45p Orthopedic Services Veroniqeu Villasenor, M25.561 Pain in right Of C.M.A. M.D. knee M17.11 Unilateral primary osteoarthritis, right knee M25.461 Effusion, right knee M23.321 Oth meniscus derang, post horn of medial meniscus, r knee Office Visit 08/15/2015 8:30a Orthopedic Services Veronique Villasenor, M25.561 Pain in right Of C.M.A. M.D. knee M17.11 Unilateral primary osteoarthritis, right knee M25.461 Effusion, right knee Office Visit 05/15/2015 10:40a [facility] Internal Lazarus Mitchell, Z98.84 Bariatric Medicine - [place] M.D. surgery status Rd E11.9 Type 2 diabetes mellitus without complications I47.1 Supraventricular tachycardia E78.4 Other hyperlipidemia F32.8 Other depressive episodes E55.9 Vitamin D deficiency, unspecified L98.9 Disorder of the skin and subcutaneous tissue, unspecified E66.09 Other obesity due to excess calories L30.9 Dermatitis, unspecified Office Visit 04/09/2015 11:00a [facility] Internal Lazarus Mitchell, Z98.84 Bariatric Medicine - [place] M.DTiffanie surgery status Rd E11.9 Type 2 diabetes mellitus without complications I47.1 Supraventricular tachycardia E78.4 Other hyperlipidemia F32.8 Other depressive episodes E66.09 Other obesity due to excess calories E78.5 Hyperlipidemia, unspecified F32.9 Major depressive disorder, single episode, unspecified Office Visit 01/07/2015 3:40p [facility] Internal Lazarus Z01.818 Encounter for other Medicine Leora Mitchell M.D. preprocedural [address] examination E66.01 Morbid (severe) obesity due to excess calories E11.9 Type 2 diabetes mellitus without complications I47.1 Supraventricular tachycardia Office Visit 01/02/2015 2:20p [facility] Internal Lazarus Mitchell, E11.9 Type 2 diabetes Medicine - M.DTiffanie mellitus without [address] complications E78.5 Hyperlipidemia, unspecified F32.8 Other depressive episodes L98.9 Disorder of the skin and subcutaneous tissue, unspecified B36.9 Superficial mycosis, unspecified E66.01 Morbid (severe) obesity due to excess calories Office Visit 11/29/2014 2:00p [facility] Internal Lazarus Mitchell, 682.9 Cellulitis & Medicine - [place] M.D. Abscess Unspec Rd Site 682.2 Cellulitis & Abscess Trunk Office Visit 11/13/2014 1:00p [facility] Internal Lazarus Mitchell, 311 Depressive Medicine - [place] M.DTiffanie Disorder Not Rd Elsewhere Spec 278.01 Obesity Morbid Office Visit 10/02/2014 1:00p [facility] Internal Lazarus Mitchell, 250.00 Diabetes Mellitus Medicine - [place] M.D. W/O Compl Type II Rd Or Unspec Controlled 272.4 Hyperlipidemia Other Unspec 427.0 PSVT Paroxysmal Supraventricular Tachycardia 794.8 Liver Study Abnormal 571.8 Liver Disease Chronic Nonalcoholic Other 311 Depressive Disorder Not Elsewhere Spec 111.9 Dermatomycosis Unspec 278.01 Obesity Morbid Office Visit 06/14/2014 10:20a [facility] Internal Lazarus Peresino, 250.00 Diabetes Mellitus Medicine - [place] M.D. W/O Compl Type II Rd Or Unspec Controlled 272.4 Hyperlipidemia Other Unspec 427.0 PSVT Paroxysmal Supraventricular Tachycardia 794.8 Liver Study Abnormal 571.8 Liver Disease Chronic Nonalcoholic Other 111.9 Dermatomycosis Unspec 278.01 Obesity Morbid Office Visit 03/15/2014 10:40a [facility] Internal Lazarus Peresino, 250.00 Diabetes Mellitus Medicine - M.D. W/O Compl Type II Prue Or Unspec Controlled 272.4 Hyperlipidemia Other Unspec 427.0 PSVT Paroxysmal Supraventricular Tachycardia 794.8 Liver Study Abnormal 571.8 Liver Disease Chronic Nonalcoholic Other 111.9 Dermatomycosis Unspec 278.01 Obesity Morbid 250.02 Diabetes Mellitus W/O Compl Type II Or Unspec Type Uncontrol Office Visit 02/14/2014 1:40p [facility] Internal Lazarus Peresino, 250.00 Diabetes Mellitus Medicine - M.D. W/O Compl Type II Prue Or Unspec Controlled 272.4 Hyperlipidemia Other Unspec 427.0 PSVT Paroxysmal Supraventricular Tachycardia 111.9 Dermatomycosis Unspec 278.01 Obesity Morbid V04.81 Need For Prophylactic Vaccination & Inoculation/Influenza 782.0 Skin Sensation Disturbance Office Visit 05/25/2011 1:00p Orthopedic Bony Mendez6.Enedelia Tendinitis Services Lisandro Hernandez Calcifying C.M.A. Shoulder Office Visit 04/26/2011 8:45a Orthopedic Bony Mendez6.11 Tendinitis Services Lisandro Hernandez Calcifying C.M.A. Shoulder Plan of Treatment Future Appointment(s):04/18/2018 8:30 am - CIELO Mena at [facility]04/18/2018 8:30 am - VANGIE Obrien at [facility]04/05/2018 8:30 am - Veronique Villasenor M.D. at [facility]04/18/2018 8:30 am - Veronique Villasenor M.D. at [facility] Of C.M.A.03/27/2018 - Dayanara Das [id number] Encounter for other preprocedural [id number] Unilateral primary osteoarthritis, right [id number] Abnormal electrocardiogram [ECG] [EKG]
[2018-04-18] MEDS ORDERED: ceFAZolin 2 GM PREMIX in ORs 2 GM/50 ML BAG IVPB ONE (07:00)
[2018-04-18] MEDS ORDERED: fentaNYL* 50 MCG/ML 2 ML VIAL (100 MCG VIAL) ONE ×2 (07:45→11:12)
[2018-04-18] MEDS ORDERED: Midazolam* 1 MG/ML 5 ML VIAL (5 MG) ONE (07:45)
[2018-04-18] MEDS ORDERED: Lidocaine 1% INJ* 10 MG/ML 30 ML SDV ONE (07:46)
[2018-04-18] MEDS ORDERED: Propofol* 10 MG/ML 20 ML BTL ONE ×2 (08:31→09:39)
[2018-04-18] MEDS ORDERED: Bupivacaine 0.5% SDV PF* 30ML VIAL ONE (08:32)
[2018-04-18] MEDS ORDERED: Bupivacaine 0.25% SDV PF* 10 ML VIAL INJ ONE (08:32)
[2018-04-18] MEDS ORDERED: ROPIVACAINE 5 MG/ML 30 ML BTL (0.5%) ONE (08:32)
[2018-04-18] MEDS ORDERED: Naloxone* 0.4 MG/ML 1 ML VIAL IV PRN (09:50)
[2018-04-18] MEDS ORDERED: Acetaminophen TAB* 325 MG PO PRN (10:01)
[2018-04-18] MEDS ORDERED: Ibuprofen TAB* 600 MG PO PRN (10:01)
[2018-04-18] MEDS ORDERED: oxyCODONE/Acetamin 5/325 MG* TAB PO PRN ×2 (10:01→11:16)
[2018-04-18] MEDS ORDERED: Ondansetron INJ* 2 MG/ML VIAL IV PRN ×2 (10:01→11:07)
[2018-04-18] MEDS ORDERED: HYDROmorphone INJ1* 1 MG/ML SYRINGE IV PRN (10:01)
[2018-04-18] MEDS ORDERED: Magnesium Hydroxide LIQ* 30 ML UDC PO PRN (11:07)
[2018-04-18] MEDS ORDERED: diPHENhydraMINE PO* 25 MG PO PRN (11:07)
[2018-04-18] MEDS ORDERED: Cyclobenzaprine TAB* 10 MG PO PRN (11:07)
[2018-04-18] MEDS ORDERED: Polyethylene Glycol 3350* 17 GM PACKET PO PRN (11:07)
[2018-04-18] MEDS ORDERED: traMADol TAB* 50 MG PO PRN (11:07)
[2018-04-18] MEDS ORDERED: diPHENhydraMINE IV* 50 MG/ML 1 ml VIAL (BENADRYL) IV PRN (11:07)
[2018-04-18] MEDS ORDERED: Bisacodyl SUPP* 10 MG SUPP PR PRN (11:07)
[2018-04-18] MEDS ORDERED: Morphine VIAL* 4 MG/ML VIAL (1 ml vial) IV PRN (11:07)
[2018-04-18] MEDS ORDERED: oxyCODONE/Acetamin 5/325 MG* TAB ONE (11:12)
[2018-04-18] MEDS: fentaNYL* 50 MCG/ML 2 ML VIAL (100 MCG VIAL) IV PRN ×2 (11:14→11:41)
[2018-04-18] MEDS ORDERED: [UNRECOGNIZED DRUG - OTHER] TOPICAL PRN (11:15)
[2018-04-18] MEDS: Lactated Ringers 1000 ML Bag* 1,000 ML IV SCH ×2 (13:00→22:51)
[2018-04-18] MEDS ORDERED: Morphine VIAL* 4 MG/ML VIAL (1 ml vial) ONE (13:11)
[2018-04-18] MEDS: oxyCODONE TAB* 5 MG TAB PO PRN ×3 (13:16→23:53)
[2018-04-18] MEDS: Acetaminophen TAB* 325 MG PO SCH ×2 (13:24→21:41)
[2018-04-18] MEDS: oxyCODONE/Acetamin 5/325 MG* TAB PO PRN ×2 (15:19→21:40)
--- NOTE | 2018-04-18 15:35 | PN ---
Progress Note - Progress Note Date of Service: 04/18/18 Note: Patient seen POD 0 s/p RTH arthroplasty. He is tolerating pain with oral narcotic meds. Active dorsiflexion right ankle. Sensation and circulation intact distally. Up out of bed with PT tonight. Eliquis to start 0900 04/19 for dvt prophylaxis.
[2018-04-18] MEDS: ceFAZolin 1 GM ADVAN(*) 1 GM in NS 0.9% 50 ML* 50 ML IVPB SCH ×2 (16:11→23:54)
[2018-04-18] MEDS: Magnesium Hydroxide LIQ* 30 ML UDC PO SCH (21:41)
[2018-04-18] MEDS: Docusate CAP* 100 MG PO SCH (21:41)
--- NOTE | 2018-04-18 23:37 | OP ---
DATE OF OPERATION: 04/18/18 - ROOM #343 DATE OF : 72 ATTENDING SURGEON: Veronique Villasenor MD AUTO HIKER: VANGIE Mena. Ms. Patel did help throughout the procedure with preparation of the leg, wound retraction, manipulation of the hip, and wound closure. ANESTHESIOLOGIST: Dr. Mendez. ANESTHESIA: Spinal. PRE-OP DIAGNOSIS: Severe endstage degenerative osteoarthritis of the right hip joint. POST-OP DIAGNOSIS: Severe endstage degenerative osteoarthritis of the right hip joint. OPERATIVE PROCEDURE: Right total hip arthroplasty. ESTIMATED BLOOD LOSS: 300 mL. COMPLICATIONS: None. SPECIMENS: Femoral head and acetabular reaming sent to Pathology. HARDWARE USED: This is uncemented Kristie total hip arthroplasty hardware. For the cup, a Tritanium cluster hole shell 56E. For the polyethylene, a Trident X3 10-degree polyethylene insert 36E. For the stem, an Accolade II, size 5 with a 127-degree neck. And for the head, a Biolox delta ceramic V40 femoral head 36 -2.5. BRIEF HISTORY/INDICATIONS: Mr. Puentes is a 47-year-old gentleman with years of increasingly severe right hip pain and contracture. Radiographs showed severe end- stage arthritis with complete loss of cartilage and bony deformation. He failed conservative treatment. Due to continued pain and decreased quality of life, he elected to undergo right total hip arthroplasty. Informed consent was obtained from the patient. He understood the risks of surgery included, but were not limited to bleeding, infection, damage to nearby structures, continued pain, need for further surgery, intraoperative fracture, nerve palsy, hardware failure or loosening, dislocation, leg length discrepancy, stroke, heart attack , blood clot, and . He wished to proceed. INTRAOPERATIVE FINDINGS: Intraoperatively, the patient was noted to have completely worn of the cartilage with extensive subchondral sclerosis of the acetabulum. He had extensive osteophyte formation around the entire rim of the acetabulum. Complete loss of cartilage along the femoral head. He had significant soft tissue contracture from chronic arthritis as well. DESCRIPTION OF PROCEDURE: Mr. Puentes was identified in the preanesthesia unit. His right lower extremity was marked as a correct operative side. Informed consent was signed and placed in the chart. The patient was taken to the operating room and placed under spinal anesthesia. A Apodaca catheter was placed. The patient was placed in the left lateral decubitus position on the pegboard. All bony prominences were well padded. Right lower extremity was prepped and draped in the usual sterile fashion. Preop time-out was made to correctly identify the patient's side and site. Appropriate perioperative antibiotics were given within 1 hour of incision. Posterior hip incision was made with a 10 blade and carried down to the lateral fascial layer. Lateral fascial layer was then incised in line with the skin incision. Charnley retractor was placed. The piriformis and conjoint tendons were identified and elevated off the posterolateral femur using electrocautery. These tendons were tagged with #5 Ethibond. Next, the electrocautery was used to make a standard posterolateral capsular flap and this was tagged with # 5 Ethibond. The hip was carefully dislocated. Lesser troch to center of the femoral head measured 60 mm. Femoral neck cut was made with an oscillating saw and the femoral head was removed. The femur was retracted anteriorly. After appropriate placement of retractors, the acetabulum was well visualized. The acetabulum was sequentially reamed up to a size 55. A 55 trial had excellent fit and stability. It was noted that the bone was sclerotic. Bleeding subchondral bone bed was obtained. Final implant chosen was a Tritanium cluster hole shell 56E. This was impacted into the acetabulum without difficulty. Appropriate anteversion and abduction angle were obtained. The polyethylene chosen was a Trident X3 10-degree polyethylene insert, 36E. This was impacted into the acetabulum without difficulty. Stability of the insert was checked and rechecked and noted to be stable. Next, attention was turned to the preparation of the proximal femur. A canal finder was used to enter the proximal femur. Proximal femur was sequentially broached up to a size 5. Size 5 broach was noted to be stable with good fit and stability as well as appropriate anteversion. A 127 neck trial with a 36 + 0 head trial was chosen. Lesser troch to center of the femoral head measured 63 mm. Therefore, a -2.5 head was chosen. Lesser troch to the center of the femoral head measured 60 mm. The hip was reduced and taken through a range of motion. The hip was stable in all positions. It was noted the patient had extensive muscular contracture around the hip. The hip was dislocated. All trials were removed. Final implant chosen was an Accolade II, size 5 with a 127-degree neck angle. This implant was impacted into the femoral canal without difficulty. There was excellent stability and appropriate anteversion. Biolox delta ceramic V40 femoral head 36 -2.5 was chosen as the final femoral head. This was impacted on to the femoral neck. The hip was reduced and taken through a range of motion. The hip was stable in all positions. The hip was copiously irrigated with sterile saline. Previously tagged capsule and tendons were reapproximated to the posterolateral femur through 2 trochanteric drill holes. Lateral fascial layer was closed using interrupted # 1 Vicryls. The rest of the incision was closed in a layered fashion using 0 and 2-0 Vicryls. Skin was closed using running 3-0 Monocryl and Dermabond. Sterile Adaptic, 4x4s, and paper tape were used to cover the incision. The patient's anesthesia was reversed without difficulty. He was taken to the PACU in stable condition. Intended weightbearing will be weightbearing as tolerated. Intended DVT prophylaxis will be Eliquis. [id number]/[facility] #: [id number] [facility]
[2018-04-19] MEDS: oxyCODONE/Acetamin 5/325 MG* TAB PO PRN ×4 (02:29→19:14)
[2018-04-19] MEDS: Acetaminophen TAB* 325 MG PO SCH ×3 (04:22→19:27)
[2018-04-19] MEDS: oxyCODONE TAB* 5 MG TAB PO PRN ×4 (05:22→22:43)
[2018-04-19] MEDS ORDERED: Morphine INJ* 2 MG/ML 1 ML SYRINGE (TWO MG - NEW SYRINGE VERSION) IV PRN (05:25)
[2018-04-19 06:28] LABS: Hematocrit 35 % (42-52); Hemoglobin 11.8 g/dl (14.0-18.0); Mean Platelet Volume 7.5 fL (7.4-10.4); Platelet Count 203 10^3/ul (150-450)
[2018-04-19 07:01] LABS: BUN/Creatinine Ratio 17.1 (8-20); Calcium 8.7 mg/dL (8.6-10.3); EGFR African American 146.9 (>60); EGFR Non-African American 121.4 (>60); Potassium 4.2 mmol/L (3.5-5.0)
[2018-04-19] MEDS: ceFAZolin 1 GM ADVAN(*) 1 GM in NS 0.9% 50 ML* 50 ML IVPB SCH (07:45)
[2018-04-19] MEDS: Citalopram TAB* 20 MG PO SCH (09:00)
[2018-04-19] MEDS: Magnesium Hydroxide LIQ* 30 ML UDC PO SCH ×2 (09:00→20:20)
[2018-04-19] MEDS: Docusate CAP* 100 MG PO SCH ×2 (09:00→20:20)
[2018-04-19] MEDS: Apixaban* 2.5 MG TAB PO SCH ×2 (09:00→20:20)
[2018-04-19] MEDS: Lactated Ringers 1000 ML Bag* 1,000 ML IV SCH (09:03)
[2018-04-19] MEDS ORDERED: Lactated Ringers 1000 ML Bag* 1,000 ML IV ONE (10:15)
--- NOTE | 2018-04-19 10:23 | PN ---
Progress Note - Progress Note Date of Service: 04/19/18 SOAP: Subjective: []Patient was seen and examined OOB in chair. He is feeling well today with 3/ 10 hip pain at rest, as severe as 9/10 pain with activity. He felt lightheaded and had an episode of hypotension with change of position sitting to standing, both of which symptoms resolved entirely with rest and 1000 ml LR bolus. Denies CP, SOB, dizziness or nausea. Objective: []General: Well appearing, NAD RLE: Right hip dressing CDI without surrounding erythema, Thigh is soft, DF/PF intact, DP2+, capillary refill less than two seconds distally, sensation intact to light touch distally Calves supple and nontender without erythema, edema or palpable cords Assessment: []POD 1 sp RTH Plan: []WBAT PT/OT Posterior hip precautions Eliquis 2.5 mg po BID x 30 days Plan for DC to home today as long as he meets goals with PT this afternoon, no lightheadedness s/p bolus and BP remains stable Will change dressing before discharge Vital Signs Temp 99.8 F 04/19/18 07:49 Pulse 89 04/19/18 09:52 Resp 18 04/19/18 09:42 BP 103/56 04/19/18 09:52 Pulse Ox 98 04/19/18 08:00 Intake & Output 04/18/18 04/19/18 04/19/18 18:59 06:59 18:59 Intake Total 2300 1505 1227 Output Total 225 750 Balance 2075 755 1227 Weight 260 lb 6.4 oz Intake: IV Fluids 2200 1045 962 ABX - CEFAZOLIN 55 LR 2200 990 962 IVPB 55 ABX - CEFAZOLIN 55 Oral 100 460 210 Output: Apodaca 225 750 Other: # Bowel Movements 0 Laboratory Last Values Hgb 11.8 g/dl (14.0-18.0) L 04/19/18 06:09 Hct 35 % (42-52) L 04/19/18 06:09 Plt Count 203 10^3/ul (150-450) 04/19/18 06:09 MPV 7.5 fL (7.4-10.4) 04/19/18 06:09 Sodium 138 mmol/L (135-145) 04/19/18 06:09 Potassium 4.2 mmol/L (3.5-5.0) 04/19/18 06:09 Chloride 106 mmol/L (101-111) 04/19/18 06:09 Carbon Dioxide 27 mmol/L (22-32) 04/19/18 06:09 Anion Gap 5 mmol/L (2-11) 04/19/18 06:09 BUN 12 mg/dL (6-24) 04/19/18 06:09 Creatinine 0.70 mg/dL (0.67-1.17) 04/19/18 06:09 Est GFR ( Amer) 146.9 (>60) 04/19/18 06:09 Est GFR (Non-Af Amer) 121.4 (>60) 04/19/18 06:09 BUN/Creatinine Ratio 17.1 (8-20) 04/19/18 06:09 Glucose 108 mg/dL (70-100) H 04/19/18 06:09 POC Glucose (mg/dL) 91 mg/dL (70-100) 04/18/18 11:07 Calcium 8.7 mg/dL (8.6-10.3) 04/19/18 06:09 HIV 1&2 Antibody Nonreactive (Nonreactive) 04/18/18 07:37
[2018-04-20] MEDS: oxyCODONE/Acetamin 5/325 MG* TAB PO PRN ×3 (01:45→14:19)
[2018-04-20] MEDS: Acetaminophen TAB* 325 MG PO SCH ×2 (03:59→12:18)
[2018-04-20] MEDS: oxyCODONE TAB* 5 MG TAB PO PRN ×2 (04:53→09:50)
[2018-04-20 06:00] LABS: Hematocrit 34 % (42-52); Hemoglobin 11.4 g/dl (14.0-18.0); Mean Platelet Volume 7.5 fL (7.4-10.4); Platelet Count 194 10^3/ul (150-450)
[2018-04-20] MEDS: Docusate CAP* 100 MG PO SCH (09:02)
[2018-04-20] MEDS: Apixaban* 2.5 MG TAB PO SCH (09:02)
[2018-04-20] MEDS: Citalopram TAB* 20 MG PO SCH (09:03)
[2018-04-20] MEDS: Magnesium Hydroxide LIQ* 30 ML UDC PO SCH (09:03)
--- NOTE | 2018-04-20 13:37 | PN ---
Progress Note - Progress Note Date of Service: 04/20/18 SOAP: Subjective: [] Patient was seen and examined at bedside. He is feeling well without CP, SOB , dizziness, nausea. Right hip pain is well controlled. Objective: [] General: Well appearing, NAD RLE: Right hip dressing changed, incision CDI without surrounding erythema, Thigh is soft, DF/PF intact, DP2+, capillary refill less than two seconds distally, sensation intact to light touch distally Calves supple and nontender without erythema, edema or palpable cords Assessment: []POD 2 sp RTH Plan: []WBAT PT/OT Posterior hip precautions Eliquis 2.5 mg po BID x 30 days DC home today Vital Signs Temp 98.7 F 04/20/18 12:42 Pulse 77 04/20/18 07:23 Resp 18 04/20/18 11:52 BP 112/60 04/20/18 07:23 Pulse Ox 100 04/20/18 07:23 Intake & Output 04/19/18 04/20/18 04/20/18 18:59 06:59 18:59 Intake Total 2232 1050 120 Output Total 650 600 400 Balance 1582 450 -280 Intake: IV Fluids 1637 LR 1637 IVPB 55 ABX - CEFAZOLIN 55 Oral 540 1050 120 Output: Urine 650 600 400 Laboratory Last Values Hgb 11.4 g/dl (14.0-18.0) L 04/20/18 05:31 Hct 34 % (42-52) L 04/20/18 05:31 Plt Count 194 10^3/ul (150-450) 04/20/18 05:31 MPV 7.5 fL (7.4-10.4) 04/20/18 05:31 Sodium 138 mmol/L (135-145) 04/19/18 06:09 Potassium 4.2 mmol/L (3.5-5.0) 04/19/18 06:09 Chloride 106 mmol/L (101-111) 04/19/18 06:09 Carbon Dioxide 27 mmol/L (22-32) 04/19/18 06:09 Anion Gap 5 mmol/L (2-11) 04/19/18 06:09 BUN 12 mg/dL (6-24) 04/19/18 06:09 Creatinine 0.70 mg/dL (0.67-1.17) 04/19/18 06:09 Est GFR ( Amer) 146.9 (>60) 04/19/18 06:09 Est GFR (Non-Af Amer) 121.4 (>60) 04/19/18 06:09 BUN/Creatinine Ratio 17.1 (8-20) 04/19/18 06:09 Glucose 108 mg/dL (70-100) H 04/19/18 06:09 POC Glucose (mg/dL) 91 mg/dL (70-100) 04/18/18 11:07 Calcium 8.7 mg/dL (8.6-10.3) 04/19/18 06:09 HIV 1&2 Antibody Nonreactive (Nonreactive) 04/18/18 07:37
[2018-04-20 15:24] VITALS: BP 101/54
--- NOTE | 2018-04-20 20:43 | DS ---
DISCHARGE SUMMARY: DATE OF ADMISSION: 04/18/18 DATE OF DISCHARGE: 04/20/18 PROVIDER: Dr. Veronique Villasenor.* (DICTATED BY VANGIE BERNABE) PREOPERATIVE DIAGNOSIS: Severe end-stage degenerative osteoarthritis of the right hip joint. OPERATIVE PROCEDURE: Right total hip arthroplasty. HISTORY: Mr. Puentes is a 47-year-old gentleman with years of increasingly severe right hip pain and contracture. Radiographs showed severe end-stage arthritis with complete loss of cartilage and bony deformation. He failed conservative treatment and elected to undergo a right total hip arthroplasty. HOSPITAL COURSE: The patient was admitted to [facility] on . He underwent a right total hip arthroplasty without complication. Postop day 1, he was well appearing, in no acute distress. His dressing was clean, dry , and intact. Thigh was soft. Dorsiflexion, plantarflexion intact. DP pulse 2+ . Capillary refill less than 2 seconds distally. Sensation intact to light touch distally. He did have some dizziness associated with hypotension upon working with physical therapy, resolved with 1000 mL fluid bolus. Postop day 2 , he was well appearing, in no acute distress. Dressing was changed. Incision was clean, dry, and intact without surrounding erythema. Thigh was soft. Dorsiflexion, plantarflexion intact. DP pulse 2+. Capillary refill less than 2 seconds distally. Sensation intact to light touch distally. Vital Signs: Temperature 98.7, pulse 77, respiratory rate 18, blood pressure 112/60, pulse ox 100, hemoglobin 11.4, hematocrit 34. Sodium 138, potassium 4.2. The patient was deemed to be medically and orthopedically stable for discharge home. DISCHARGE MEDICATIONS: 1. Multivitamin once daily. 2. Iron 1 tab p.o. q.a.m. 3. Calcium carbonate, magnesium, D3 two tabs p.o. b.i.d. 4. Eczema cream 1 topical application daily. 5. Celexa 20 mg p.o. q.a.m. 6. Vitamin B complex 1 tab p.o. q.a.m. 7. Acetaminophen 975 mg every 8 hours as needed for pain. 8. Eliquis 2.5 mg every 12 hours for 30 days. 9. Docusate 100 mg p.o. b.i.d. 10. Percocet 5/325 one to two tabs every 4 to 6 hours as needed for pain, max daily dose of 10, please do not exceed 4000 mg of Tylenol per day from all sources. DISCHARGE INSTRUCTIONS: The patient is discharged to home. He will continue hip precautions. Continue physical therapy and occupation therapy exercises as shown. DVT prophylaxis is with Eliquis 2.5 mg by mouth every 12 hours for 30 days. Follow up with Dr. Villasenor in 10 to 14 days. VANGIE BERNABE [id number]/[facility] #: [id number] MTDD
== END 2018-04-20 15:02 | disposition home or self-care (01) | DRG 470 ==
LOC: AA 06:33 → SSU 11:07
PROVIDERS: ADMIT Orthopaedic Surgery Adult Reconstructive Orthopaedic Surgery; ATTEND Orthopaedic Surgery Adult Reconstructive Orthopaedic Surgery
PROC: 0SR904A Replacement of Right Hip Joint with Ceramic on Polyethylene Synthetic Substitute, Uncemented, Open Approach (ICD-10-PCS; principal; 2018-04-18 08:00)
DX: M16.11 Unilateral primary osteoarthritis, right hip (principal); M24.551 Contracture, right hip; E11.9 Type 2 diabetes mellitus without complications; E78.5 Hyperlipidemia, unspecified; F32.9 Major depressive disorder, single episode, unspecified; B35.1 Tinea unguium; F41.9 Anxiety disorder, unspecified; E66.9 Obesity, unspecified; M25.751 Osteophyte, right hip; Z82.3 Family history of stroke; Z98.84 Bariatric surgery status; Z82.49 Family history of ischemic heart disease and other diseases of the circulatory system; Z68.36 Body mass index [BMI] 36.0-36.9, adult; Z83.3 Family history of diabetes mellitus
CPT/HCPCS: 36415; 80048; 85014; 85018; 85049; 86703; 90686; A9270-GY; C1776; G8987-GO-CK; G8988-GO-CI; J0690; J2250; J2270; J2405; J2704; J2795; J3010; J3490

== ENCOUNTER 2018-10-03 06:45 | Emergency (ER) | payer BC ==
--- NOTE | 2018-10-03 08:04 | ED ---
Skin Complaint - HPI Summary HPI Summary: This patient is a 47 year old M presenting to [facility] with a chief complaint of an abscess at lower neck/upper back. Patient reports that he has had this cyst for "a while" but notes Sx worsened in pain and progressed a couple of weeks ago. The patient rates the pain 7/10 in severity. Symptoms aggravated by palpation. Symptoms alleviated by nothing. Patient denies any fever, chills, diaphoresis, erythema of eyes, sore throat, CP, SOB, cough, abdominal pain, N/V , dysuria, hematuria, myalgia, edema, rash, or dizziness. Patient notes that he takes Celexa and vitamins. - History of Current Complaint Chief Complaint: EDRashSkinAbscess Stated Complaint: ABSCESS ON BACK PER PT Hx Obtained From: Patient Onset/Duration: Started Weeks Ago - Sx been present for "a while", Still Present , Worse Since - two weeks ago Skin Exposure Onset/Duration: Weeks Ago - 2 Timing: Constant, Lasting Weeks - 2 Onset Severity: Moderate Current Severity: Severe Pain Intensity: 7 Pain Scale Used: 0-10 Numeric Skin Location: Other: - lower neck/upper back Character: Pain, Painful Aggravating Symptom(s): Touch Alleviating Symptom(s): Nothing Associated Signs & Symptoms: Negative - Additional Pertinent History Primary Care Physician: [id number] - Allergy/Home Medications Allergies/Adverse Reactions: Allergies Allergy/AdvReac Type Severity Reaction Status Date / Time latex Allergy Rash Verified 04/18/18 07:16 PMH/Surg Hx/FS Hx/Imm Hx Previously Healthy: Yes Endocrine/Hematology History: Reports: Hx Diabetes - resolved with weight loss Cardiovascular History: Reports: Other Cardiovascular Problems/Disorders - HX OF SVT- ON ATENOLOL Denies: Hx Hypertension, Hx Pacemaker/ICD Respiratory History: Denies: Hx Asthma, Hx Chronic Obstructive Pulmonary Disease (COPD), Other Respiratory Problems/Disorders GI History: Reports: Hx Gastroesophageal Reflux Disease - WELL CONTROLLED Denies: Other GI Disorders History: Denies: Hx Renal Disease Musculoskeletal History: Reports: Hx Arthritis Sensory History: Denies: Hx Contacts or Glasses, Hx Hearing Aid Opthamlomology History: Denies: Hx Contacts or Glasses Psychiatric History: Reports: Hx Anxiety - ON MEDICATION FOR, Hx Depression - on meds Denies: Hx Panic Disorder - Surgical History Surgical History: Yes Surgery Procedure, Year, and Place: ORAL SURGERY 1997, 2006 Hx Anesthesia Reactions: No Infectious Disease History: No Infectious Disease History: Reports: Hx Hepatitis Denies: Traveled Outside the [place] in Last 30 Days - Family History Known Family History: Positive: Cardiac Disease, Hypertension, Diabetes - Social History Alcohol Use: Rare Substance Use Type: Reports: Marijuana Substance Use Comment - Amount & Last Used: rarely Hx Tobacco Use: No Smoking Status (MU): Never Smoked Tobacco Do You Chew or Dip Tobacco: No Have You Chewed or Dipped Tobacco in the LAST YEAR: No Have You Smoked in the Last Year: No Review of Systems Negative: Fever, Chills, Skin Diaphoresis Negative: Erythema Negative: Sore Throat Negative: Chest Pain Negative: Shortness Of Breath, Cough Negative: Abdominal Pain, Vomiting, Nausea Negative: dysuria, hematuria Negative: Myalgia, Edema Skin: Other - positive - abscess at lower neck/upper back Negative: Rash Neurological: Other - negative - dizziness All Other Systems Reviewed And Are Negative: Yes Physical Exam - Summary Physical Exam Summary: Constitutional: Well-developed, Well-nourished, Alert. (-) Distressed Skin: Warm, Dry HENT: Normocephalic; Atraumatic Eyes: Conjunctiva normal Neck: golf ball size fluctuant mass to right side of midline at base of neck, Musculoskeletal ROM normal neck. (-) JVD, (-) Stridor, (-) Tracheal deviation Cardio: Rhythm regular, rate normal, Heart sounds normal; Intact distal pulses; The pedal pulses are 2+ and symmetric. Radial pulses are 2+ and symmetric. (-) Murmur Pulmonary/Chest wall: Effort normal. (-) Respiratory distress, (-) Wheezes, (-) Rales Abd: Soft, (-) tenderness, (-) Distension, (-) Guarding, (-) Rebound Musculoskeletal: (-) Edema Lymph: (-) Cervical adenopathy Neuro: Alert, Oriented x3 Psych: Mood and affect Normal Triage Information Reviewed: Yes Vital Signs On Initial Exam: Initial Vitals Temp Pulse Resp BP Pulse Ox 97.6 F 79 16 138/95 99 10/03/18 06:59 10/03/18 06:59 10/03/18 06:59 10/03/18 06:59 10/03/18 06:59 Vital Signs Reviewed: Yes Procedures - Procedure Summary Procedure Summary: I and D on the upper back/lower neck. 1 cm incision extended to 3 cm due to retention of materials. There was copious thick sebaceous drainage. 1 4-0 prolene suture was placed. - Incision and Drainage Upper Back Site: upper back/lower neck Anesthesia: Lidocaine - 5 mL of 1% lidocaine Instrument(s): Scalpel, Other - curved forceps Packing: Other - none Diagnostics - Vital Signs Vital Signs Temp Pulse Resp BP Pulse Ox 10/03/18 06:59 97.6 F 79 16 138/95 99 - Laboratory Lab Statement: Any lab studies that have been ordered have been reviewed, and results considered in the medical decision making process. Course/Dx - Course Course Of Treatment: This patient is a 47 year old M presenting to [facility] with a chief complaint of an abscess at lower neck/upper back. Patient reports that he has had this cyst for "a while" but notes Sx worsened in pain and progressed a couple of weeks ago. The patient rates the pain 7/10 in severity. Symptoms aggravated by palpation. Symptoms alleviated by nothing. Patient denies any fever, chills, diaphoresis, erythema of eyes, sore throat, CP, SOB, cough, abdominal pain, N/V, dysuria, hematuria, myalgia, edema, rash, or dizziness. Patient notes that he takes Celexa and vitamins. The physical exam shows golf ball size fluctuant mass to right side of midline at base of neck. I&D procedure was done. 1 cm incision extended to 3 cm due to retention of materials. There was copious thick sebaceous drainage. 1 dash 4O suture was placed. There was some overlying erythema at right lateral border. During the ED course, the patient was given tylenol. Patient was told to apply ice to the procedure area. Patient was told to follow up with Dr. Chin, surgery, within 2-3 days and to return to the ED for new or worsening symptoms. - Diagnoses Provider Diagnoses: Infected sebaceous cyst Discharge - Sign-Out/Discharge Documenting (check all that apply): Patient Departure - discharge Patient Received Moderate/Deep Sedation with Procedure: No - Discharge Plan Condition: Stable Disposition: HOME Prescriptions: Cephalexin SUSP* [Keflex SUSP 250 MG/5 ML*] 500 mg PO QID #1 oral.susp Sulfamethox/Trimethoprim DS* [Bactrim DS 800/160 TAB*] 1 tab PO BID #10 tab traMADol TAB* [Ultram*] 50 mg PO Q6HR PRN #10 tab MDD 4 PRN Reason: Pain - Moderate To Severe Patient Education Materials: Cyst (ED) Referrals: Inocencio Chin MD [Medical Doctor] - 3 Days () Additional Instructions: Follow up with Dr. Chin, surgery, within 2-3 days. Apply ice on procedure area. Return to the ED for any new or worsening symptoms. - Attestation Statements Document Initiated by Scribe: Yes Documenting Scribe: Akshat Parson Provider For Whom Scribe is Documenting (Include Credential): Dr. Demetris Noland MD Scribe Attestation: I, Akshat Gabriel and Ky Parson, scribed for Dr. Demetris Noland MD on 10/03/18 at 1207. Status of Scribe Document: Ready
[2018-10-03] MEDS ORDERED: Acetaminophen TAB* 325 MG PO ONE (08:09)
[2018-10-03 08:52] VITALS: BP 117/80
== END 2018-10-03 08:48 | disposition home or self-care (01) ==
LOC: ED 06:45
DX: L72.3 Sebaceous cyst (principal); Z91.040 Latex allergy status
CPT/HCPCS: 99282; A9270-GY